=== PATIENT | female | born 1940 | race Caucasian/White ===

== ENCOUNTER 2018-12-06 12:12 | Emergency (ER) | payer MEDICARE | END 2018-12-06 15:34 | disposition home or self-care (01) | LOC: ERS 12:12 | DX: R91.8 Other nonspecific abnormal finding of lung field (principal) | CPT/HCPCS: 99284 ==

== ENCOUNTER 2018-12-11 15:27 | Inpatient (IN) | payer MEDICARE ==
--- NOTE | 2018-12-11 15:56 | RAD ---
SINGLE VIEW OF THE CHEST: COMPARISON: 12/06/2018. HISTORY: Shortness of breath and chest pain. FINDINGS: A single view of the chest shows a normal-size cardiomediastinal silhouette. Opacity is seen in the right apex, unchanged. There is a new opacity in the right lung base which likely represents a pleur al effusion and adjacent atelectasis. IMPRESSION: 1. Opacity of the right lung apex may represent an infectious or malignant process. 2. Small right pleural effusion. POS: [facility]
[2018-12-11 15:58] LABS: #Basophils 0.1 thou/uL (0.0-0.2); #Eosinphils 0.1 thou/uL (0.0-0.7); #Lymphocytes 0.9 thou/uL (1.20-3.40); #Monocytes 0.4 thou/uL (0.11-0.59); #Neutrophils 2.7 thou/uL (1.40-6.50); %Basophils 1.6 % (0.0-1.0); %Eosinophils 1.7 % (0.0-10.0); %Lymphocytes 21.9 % (21.0-51.0); %Monocytes 8.8 % (0.0-10.0); %Neutrophils 65.9 % (42.0-75.0); Mean Corpuscular HGB CONC 32.8 g/dL (32.0-36.0); Mean Corpuscular Hemoglobin 31.9 pg (27.0-31.0); Mean Corpuscular Volume 97.2 fL (78.0-98.0); Mean Platelet Volume 9.3 fL (7.4-10.4); Platelet Count 183 thou/uL (130-400); RBC Distribution Width 12.9 % (11.5-14.5)
[2018-12-11 16:39] LABS: ALT (SGPT) 7 U/L (8-55); AST (SGOT) 17 U/L (5-34); Albumin 3.2 g/dL (3.4-4.8); Alkaline Phosphatase 92 U/L (40-150); Anion Gap 15 mmol/L (10-20); BUN (Urea Nitrogen) 6 mg/dL (9.8-20.1); Bilirubin, Total 0.2 mg/dL (0.2-1.2); CK (CPK) 32 U/L (29-168); Calc. Creatinine Clearance 0 mL/min (70-130); Calcium 9.1 mg/dL (7.8-10.44); Carbon Dioxide 21 mmol/L (23-31); Chloride 111 mmol/L (98-107); Estimated GFR-MDRD 76; Globulin 2.6 g/dL (2.4-3.5); Glucose 103 mg/dL (83-110); Potassium 3.8 mmol/L (3.5-5.1); Protein, Total 5.8 g/dL (6.0-8.3); Sodium 143 mmol/L (136-145)
[2018-12-11] MEDS ORDERED: Guaifenesin DM 100-10/5 ML UDCUP PO PRN (18:38)
[2018-12-11] MEDS ORDERED: Diltiazem 125 MG in Sodium Chloride 0.9% 100 ML IVPB SCH (18:45)
[2018-12-11] MEDS ORDERED: Ondansetron ODT 4 MG TAB SL PRN (19:07)
[2018-12-11] MEDS ORDERED: HYDROcodone/Acetaminophen 5/325 mg Tablet PO PRN ×2 (19:07)
[2018-12-11] MEDS ORDERED: Sodium Chloride 0.9% 1,000 ML IV SCH (19:07)
[2018-12-11] MEDS ORDERED: Ondansetron PF 4 MG/2 ML Vial IVP PRN (19:07)
[2018-12-11] MEDS ORDERED: Acetaminophen 325 MG TAB PO PRN (19:07)
--- NOTE | 2018-12-11 19:20 | HP ---
REASON FOR ADMISSION: New onset atrial fibrillation with RVR. HISTORY OF PRESENTING ILLNESS: The patient gives history of getting short of breath and in fact says she could not get any air. Prior to this, the patient was incontinent and tried to go to restroom nearly 3 times [id number]. Finally, she went to living room, settled down, but again had another episode of incontinence where she developed shortness of breath as well. The patient says she normally drinks plenty of water as she feels thirsty all the time. She also mentions that she was told that she has a mass on her right side of her lungs and is planning to see Dr. Lazaro in the coming week. She normally ambulates by herself, does not use any assistive devices. No prior history of atrial fibrillation. When EMS arrived, the patient was in atrial fibrillation with ventricular rate of 158 beats. She is currently placed on Cardizem drip 5 mg an hour. No complaints of chest pain or shortness of breath at present. The patient does not use any home oxygen. She does not use any nebulizers at home as of now. PAST MEDICAL AND SURGICAL HISTORY: Hypothyroidism, right lung mass detected recently, osteoarthritis, depression, hysterectomy, thyroid surgery. No prior cardiac workup including stress test per patient. CURRENT MEDICATIONS: The patient is on amitriptyline 50 mg p.o. daily. The patient is on butalbital combination for headaches, likely migraines. Seroquel 50 mg p.o. q.h.s., [place] Thyroid 120 mg p.o. daily, diazepam 5 mg p.o. q.8 hourly p.r.n. ALLERGIES: NO KNOWN DRUG ALLERGIES. SOCIAL AND PERSONAL HISTORY: She lives alone and ambulates by herself. She has a friend, who helps her out if she needs any help. She quit smoking 20 years ago, prior to which smoked half a pack a day for the last 20 years. Does not abuse alcohol or drugs. Has a son who is 53 years old now. The patient lost her elder son at the age of 21 years from motor vehicle accident. Both her parents are as of now. Her whom she was for 50plus years 5 yrs back. CODE STATUS: Full. Power of assistant county attorney is her son. REVIEW OF SYSTEMS: CONSTITUTIONAL: Negative for weight loss or gain, ability to conduct usual activities. SKIN: Negative for rash, itching. EYES: Negative for double vision, pain. ENT/MOUTH: Negative for nose bleeding, neck stiffness, pain, tenderness. CARDIOVASCULAR: Negative for palpitations, dyspnea on exertion, orthopnea. RESPIRATORY: Negative for shortness of breath, wheezing, cough, hemoptysis, fever or night sweats. GASTROINTESTINAL: Negative for poor appetite, abdominal pain, heartburn, nausea , vomiting, constipation, or diarrhea. GENITOURINARY: Negative for urgency, frequency, dysuria, nocturia. MUSCULOSKELETAL: Negative for pain, swelling. NEUROLOGIC/PSYCHIATRIC: Negative for anxiety, depression. ALLERGY/IMMUNOLOGIC: Negative for skin rash, bleeding tendency. PHYSICAL EXAMINATION: GENERAL: The patient is a 78-year-old female, who is currently not in any acute distress. VITAL SIGNS: Blood pressure 102/70, pulse 108 per minute, respiratory rate 20 per minute, temperature 97.9 degrees Fahrenheit, saturating 94% on 2 L nasal cannula. NECK: Supple. No elevated JVD. HEENT: Eyes; extraocular muscles intact. Pupils reacting to light. Oral cavity; mucous membranes are moist. No exudates or congestion. CARDIOVASCULAR SYSTEM: S1 and S2 heard. Irregular rhythm. RESPIRATORY SYSTEM: Air entry 1+ bilateral. Scattered rhonchi plus bilateral. ABDOMEN: Soft. Bowel sounds heard. No tenderness, rigidity, or guarding. EXTREMITIES: No peripheral edema or calf tenderness. VASCULAR SYSTEM: Peripheral pulses 1+ bilateral. No ischemic ulcerations or gangrene. CENTRAL NERVOUS SYSTEM: No gross focal deficits noted. The patient is alert, awake, and oriented well. PSYCHIATRIC SYSTEM: The patient's mood is euthymic. No hallucinations or delusions. LABORATORY DATA: White count of 4, H and H of 14 and 42, platelet count 183, with 65% neutrophils. Serum bicarb 21, BUN 6, creatinine 0.7, serum glucose 103. Liver enzymes within normal limits. Albumin is 3.2. Chest x-ray done today shows right lung mass with small right-sided pleural effusion. She has had a recent CAT scan done on the of this month, which shows right lung mass, which appears to be expansile and there is narrowing of the pulmonary artery branches in the right lung, which is concerning for malignancy. She also has scattered pulmonary nodules in the right lung as well. EKG done by [facility] showed atrial fibrillation at 158 beats per minute. EKG done here shows sinus tach at 109 beats per minute. CLINICAL IMPRESSION AND PLAN: The patient will be admitted to telemetry for new onset atrial fibrillation with rapid ventricular response. The patient has a right lung mass with pleural effusion on the right side as well. She likely has underlying chronic obstructive pulmonary disease as well. She is currently on Cardizem drip 5 mg an hour and we will continue the same. She will be placed on Lopressor 25 mg twice daily and likely other AV jacqueline blockers from morning. We will not give her full dose of anticoagulation in view of right lung mass, which has enveloped the pulmonary artery and await Dr. Lazaro's opinion in the morning. She likely will have a thoracentesis on the right side to rule out malignancy. We will continue her amitriptyline, Seroquel, and [place] Thyroid as before. A TSH, free T3, free T4 will be obtained in the morning labs. Echo with 2D Doppler in view of atrial fibrillation. Urinalysis will be obtained. She has history of frequent urinary incontinence, will be placed on antibiotics if urinalysis reveals uti. Code status is full. I have discussed this with the patient. She will talk to her son and let us know if she changed her mind. Job ID: [id number] MTDD
[2018-12-11 20:09] LABS: CKMB 1.1 ng/mL (0-6.6)
[2018-12-11] MEDS: Metoprolol Tartrate 25 MG TAB PO SCH (21:24)
[2018-12-11] MEDS: Famotidine 20 MG TAB PO SCH (21:24)
[2018-12-11] MEDS: Acetaminophen 325 MG TAB PO PRN (21:24)
[2018-12-12 00:07] LABS: CKMB 1.1 ng/mL (0-6.6)
[2018-12-12] MEDS: Acetaminophen 325 MG TAB PO PRN ×2 (03:51→08:31)
[2018-12-12 05:54] LABS: #Eosinphils 0.1 thou/uL (0.0-0.7); #Lymphocytes 1.4 thou/uL (1.20-3.40); #Monocytes 0.5 thou/uL (0.11-0.59); #Neutrophils 2.1 thou/uL (1.40-6.50); %Basophils 0.7 % (0.0-1.0); %Eosinophils 2.9 % (0.0-10.0); %Lymphocytes 34.1 % (21.0-51.0); %Monocytes 11.9 % (0.0-10.0); %Neutrophils 50.4 % (42.0-75.0); Hemoglobin 12.2 g/dL (12.0-16.0); Mean Corpuscular HGB CONC 32.3 g/dL (32.0-36.0); Mean Corpuscular Hemoglobin 31.4 pg (27.0-31.0); Mean Corpuscular Volume 97.1 fL (78.0-98.0); Mean Platelet Volume 9.4 fL (7.4-10.4); Platelet Count 166 thou/uL (130-400); White Blood Cell (WBC) Count 4.1 thou/uL (4.8-10.8)
[2018-12-12] MEDS ORDERED: Ondansetron PF 4 MG/2 ML Vial SLOW IVP PRN (06:06)
[2018-12-12 06:11] LABS: Anion Gap 13 mmol/L (10-20); BUN (Urea Nitrogen) 6 mg/dL (9.8-20.1); Calc. Creatinine Clearance 60 mL/min (70-130); Calcium 8.8 mg/dL (7.8-10.44); Carbon Dioxide 20 mmol/L (23-31); Chloride 111 mmol/L (98-107); Estimated GFR-MDRD 84; Glucose 87 mg/dL (83-110); Potassium 3.6 mmol/L (3.5-5.1); Sodium 140 mmol/L (136-145)
[2018-12-12] MEDS ORDERED: Sodium Chloride 0.9% 1,000 ML IV SCH ×2 (06:15→07:44)
[2018-12-12] MEDS: Amitriptyline HCl 25 MG TAB PO SCH (08:29)
[2018-12-12] MEDS: Metoprolol Tartrate 25 MG TAB PO SCH (08:29)
[2018-12-12] MEDS: Famotidine 20 MG TAB PO SCH ×2 (08:29→21:38)
[2018-12-12] MEDS: Thyroid 60 MG TAB PO SCH (08:30)
[2018-12-12] MEDS ORDERED: Enoxaparin Sodium 40 MG/0.4 ML SYRINGE SC SCH (09:00)
--- NOTE | 2018-12-12 10:41 | PDOC.PN ---
- Subjective Encounter Start Date: 12/12/18 Encounter Start Time: 10:20 Subjective: mild sob, no c/o palp or chest pain -: couldn't sleep last night, was woken multiple times due to bp cuff inflatin - Objective Resuscitation Status - Order Detail: 12/11/18 18:34 Resuscitation Status Routine Resuscitation Status: FULL: Full Resuscitation Discussed with: POA: son ERNIE Reviewed: Yes Vital Signs & Weight: Vital Signs (12 hours) Temp Pulse Resp BP BP Pulse Ox 12/12/18 09:47 85 16 94 L 12/12/18 07:25 98.1 F 96 18 124/56 L 92 L 12/12/18 06:48 83 16 92 L 12/12/18 04:20 98.3 F 88 20 94/58 L 92 L 12/11/18 23:45 84 96/55 L 12/11/18 22:42 89 16 93 L Weight Weight 131 lb 8 oz I&O: 12/11/18 12/12/18 12/13/18 06:59 06:59 06:59 Intake Total 1560 Output Total 700 Balance 860 Result Diagrams: 12/12/18 04:48 12/12/18 04:48 Phys Exam - Physical Examination HEENT: PERRLA, moist MMs Neck: no JVD, supple Respiratory: no wheezing, no rales rhonchi+ Cardiovascular: no significant murmur, irregular Gastrointestinal: soft, no distention, positive bowel sounds Musculoskeletal: no edema, pulses present Neurological: non-focal, moves all 4 limbs Psychiatric: A&O x 3 Dx/Plan (1) Afib Code(s): I48.91 - UNSPECIFIED ATRIAL FIBRILLATION Status: Acute (2) Mass of right lung Code(s): R91.8 - OTHER NONSPECIFIC ABNORMAL FINDING OF LUNG FIELD Status: Acute (3) HTN (hypertension) Code(s): I10 - ESSENTIAL (PRIMARY) HYPERTENSION Status: Chronic Qualifiers: Hypertension type: essential hypertension Qualified Code(s): I10 - Essential (primary) hypertension (4) COPD (chronic obstructive pulmonary disease) Status: Suspected Qualifiers: COPD type: chronic bronchitis (5) Hypothyroidism Code(s): E03.9 - HYPOTHYROIDISM, UNSPECIFIED Status: Chronic Qualifiers: Hypothyroidism type: acquired Qualified Code(s): E03.9 - Hypothyroidism, unspecified - Plan dc cardizem drip, she is getting tired of bp cuff inflating multiple times -: oral cardizem cd 120mg bid, lopressor small dose -: echo pending -: will decide thoracentesis Vs bronch -: nebs prn. Continue seroquel, elavil and armour thyroid as before * . Will d/w son later today, await plans by specialist before I update him. She lives alone and amb by herself, likely has mild cognitive impairment. Review of Systems - Medications/Allergies Allergies/Adverse Reactions: Allergies Allergy/AdvReac Type Severity Reaction Status Date / Time No Known Drug Allergies Allergy Verified 12/11/18 20:18 Medications: Current Medications Acetaminophen (Tylenol) 650 mg PO Q4H PRN PRN Reason: Headache/Fever or Pain Last Admin: 12/12/18 08:31 Dose: 650 mg Hydrocodone Bitart/Acetaminophen ([place] 5/325) 1 tab PO Q6H PRN PRN Reason: Pain 4-6 Albuterol/Ipratropium (Duoneb) 3 ml NEB [id number] [facility] Last Admin: 12/12/18 06:48 Dose: 3 ml Albuterol/Ipratropium (Duoneb) 3 ml NEB NOW [facility] Stop: 12/12/18 11:00 Last Admin: 12/12/18 09:47 Dose: 3 ml Amitriptyline HCl (Elavil) 50 mg PO DAILY [facility] Last Admin: 12/12/18 08:29 Dose: 50 mg Diltiazem HCl (Cardizem Cd) 120 mg PO NOW [facility] Stop: 12/12/18 12:00 Last Admin: 12/12/18 10:21 Dose: 120 mg Diltiazem HCl (Cardizem Cd) 120 mg PO BID [facility] Enoxaparin Sodium (Lovenox) 40 mg SC 0900 [facility] Last Admin: 12/12/18 08:28 Dose: 40 mg Famotidine (Pepcid) 20 mg PO BID [facility] Last Admin: 12/12/18 08:29 Dose: 20 mg Guaifenesin/Dextromethorphan (Robitussin Dm) 15 ml PO Q4H PRN PRN Reason: Cough Metoprolol Tartrate (Lopressor) 25 mg PO BID [facility] Last Admin: 12/12/18 08:29 Dose: 25 mg Ondansetron HCl (Zofran) 4 mg SLOW IVP Q6H PRN PRN Reason: Nausea/Vomiting Quetiapine Fumarate (Seroquel) 50 mg PO HS [facility] Last Admin: 12/11/18 21:24 Dose: 50 mg Senna/Docusate Sodium (Senokot S) 2 tab PO BID PRN PRN Reason: Constipation Sodium Chloride (Flush - Normal Saline) 10 ml IVF Q12HR [facility] Last Admin: 12/12/18 08:30 Dose: Not Given Sodium Chloride (Flush - Normal Saline) 10 ml IVF PRN PRN PRN Reason: Saline Flush Thyroid ([place] Thyroid) 120 mg PO DAILY [facility] Last Admin: 12/12/18 08:30 Dose: 120 mg
[2018-12-12] MEDS ORDERED: Digoxin 0.5 MG/2 ML AMP SLOW IVP SCH (13:30)
--- NOTE | 2018-12-12 16:17 | CON ---
DATE OF CONSULTATION: REASON FOR CONSULTATION: Atrial fibrillation. HISTORY OF PRESENT ILLNESS: Ms. Powers is a 78-year-old woman, who re-presented with shortness of breath. No chest pain or pressure noted. Shortness of breath has been noted in the last several days. She was seen by the emergency room and was found to have atrial fibrillation with rapid ventricular response. Heart rate was in the 150s. She was placed on IV Cardizem with rate control. She appears to not have paroxysmal atrial fibrillation. She has no previous history of underlying atrial fibrillation, CAD, or associated symptoms. She has not been seen and evaluated by Cardiology in the past. She also has a lung mass that is currently being worked up. She does have a previous history of tobacco abuse, although quit in 1996. PAST MEDICAL HISTORY: As above including hysterectomy, thyroid surgery, and osteoarthritis. HOME MEDICATIONS: Include; 1. Amitriptyline for headaches. 2. Seroquel. 3. Diazepam. 4. [place] Thyroid. ALLERGIES: NONE. SOCIAL HISTORY: Her son is currently present. She has a supportive family. No current tobacco or alcohol use. REVIEW OF SYSTEMS: A 10-point review of systems is reviewed and as above, otherwise negative. PHYSICAL EXAMINATION: VITAL SIGNS: Blood pressure 119/69, pulse 97, and temperature 98.5. GENERAL: She does have some confusion. The patient appears their stated age. NEUROLOGIC: The patient is alert and oriented x3 with no focal neurologic deficits. HEENT: Sclerae without icterus. Mouth has moist mucous membranes with normal pallor. NECK: No JVD. Carotid upstroke brisk. No bruits bilaterally. LUNGS: Clear to auscultation with unlabored respirations. BACK: No scoliosis or kyphosis. CARDIAC: Regular rate and rhythm with normal S1 and S2. No S3 or S4 noted. No significant rubs, murmurs, thrills, or gallops noted throughout the precordium. PMI is not displaced. There is no parasternal heave. ABDOMEN: Soft, nontender, nondistended. No peritoneal signs present. No hepatosplenomegaly. No abnormal striae. EXTREMITIES: 2+ femoral and 2+ dorsalis pedis pulses. No cyanosis, clubbing, or edema. SKIN: No gross abnormalities. LABORATORY DATA: Hemoglobin 12.2 and white blood cell count 4.1. Creatinine 0.68. IMPRESSION: 1. Paroxysmal atrial fibrillation. 2. Right lung mass. 3. Confusion. RECOMMENDATIONS: Ms. Powers does not have any focal neurologic deficit. Her son is concerned about her potential recent stroke due to underlying confusion. The patient has not had a CT scan of the head. We will order a CT scan. May consider an MRI. At this point, I would also recommend rate control and anticoagulation therapy. We will cover with Lovenox for now. I am unsure of the plan of assessment of the right lung mass. I will add Multaq. At this point, she is not requiring IV Cardizem. She is currently on Cardizem CD 120 mg IV b.i.d. and appears to be rate controlled. Job ID: [id number]
--- NOTE | 2018-12-12 17:11 | CT ---
CT BRAIN: Date: 12/12/18 HISTORY: Altered mental status COMPARISON: Previous exam from 06/29/16. FINDINGS: CT images of the brain demonstrate the brain to be unremarkable. No evidence of intracranial masses, hemorrhages, strokes, or contusions seen. The ventricles are of normal size. There is moderate right to left nasal septal deviation. IMPRESSION: Cortical atrophy. POS: [facility]
[2018-12-12] MEDS ORDERED: Digoxin 0.25 MG TAB PO SCH (19:00)
--- NOTE | 2018-12-12 20:42 | CON ---
DATE OF CONSULTATION: 12/12/2018 HISTORY OF PRESENT ILLNESS: Ms. Powers is a 78-year-old female. I was consulted for an abnormal chest x-ray and chest CT. Apparently, she was sent over here from [place] on December 06. I was contacted by the emergency physician and provided with the information that she was transferred over here for a new lung mass. I have explained to the emergency physician that this was by Medicare standards considered an outpatient workup and asked them to make an appointment in my office. Ms. Powers says she has an appointment, but she does not know what day it is. She told me that I would talk to her son. I have not. Anyway, she presented back with shortness of breath. She was found to have rapid atrial fibrillation, subsequently has been admitted. I was consulted. PAST MEDICAL HISTORY: Remarkable for: 1. Hypothyroidism. 2. Degenerative arthritis. 3. Depression. 4. Status post hysterectomy. 5. History of thyroid surgery. MEDICATIONS: Prior to admission, she is on: 1. Elavil. 2. Seroquel. 3. [place] Thyroid. 4. Valium. 5. Butalbital. SOCIAL HISTORY: She lives alone, apparently a son had and has a son that lives out of town. She smoked when she was in high school in early 20s, but quit smoking. ALLERGIES: SHE HAS NO REPORTED DRUG ALLERGIES. FAMILY HISTORY: Negative for lung disease in early age, but she does give a history of having a grandfather. He told that he had emphysema in his 30s. It is unclear whether or not this is just simply chronic asthma since there are no medications when her grandfather was in his 30s for COPD or asthma. REVIEW OF SYSTEMS: 10 point review of systems completed. Remarkable for significant weight loss over the last year. Otherwise, negative. PHYSICAL EXAMINATION: GENERAL: She is in no distress. She seen a little confused. She asked me for a piece of paper to write down whether or not I was coming back tomorrow to see her and then wrote down coming to see me in the morning. VITAL SIGNS: She is afebrile. Heart rate was in the one teens. When I saw her , respiratory rate was in the teens, oximetry was 92 to 93 on room air. HEENT: Pupils were reactive. Sclerae anicteric. NECK: Supple. LUNGS: Remarkable for dullness to percussion in the right lung base. Left lung is clear. HEART: Irregular rhythm. S1 and S2 are normal. ABDOMEN: Soft and nontender. EXTREMITIES: Without clubbing, cyanosis, or edema. DIAGNOSTIC DATA: CT of her head was done this afternoon showing cortical atrophy. LABORATORY DATA: White count 4.1, hemoglobin 12.2, platelets 166. Electrolytes were unremarkable, exception of mild hypochloremia. Chest x-ray and chest CT showed right upper lobe atelectasis and right pleural effusion. IMPRESSION: 1. 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 2. Pleural effusion. This could be related to atrial fibrillation or could be related to malignancy. The least invasive thing we can do to start this workup would be to do a thoracentesis. PLAN: Plan on doing that first thing in the morning at the bedside. Risk of bleeding, infection, and lung collapse were explained to the patient. The hospitalist is trying to get in touch with the son, but he has not answered his phone. I will try as well. Prior to doing the procedure, we would like to explain everything to him. TIME SPENT: This is a 50-minute consult, with greater than 50% of time spent on the unit coordinating care. Job ID: [id number] [facility]
[2018-12-12] MEDS: Metoprolol Tartrate 50 MG TAB PO SCH (21:38)
[2018-12-13] MEDS ORDERED: Lorazepam 1 MG TAB PO SCH (00:45)
[2018-12-13] MEDS: Metoprolol Tartrate 50 MG TAB PO SCH ×2 (08:51→20:49)
[2018-12-13] MEDS: Digoxin 0.125 MG TAB PO SCH (08:51)
[2018-12-13] MEDS: Amitriptyline HCl 25 MG TAB PO SCH (08:51)
[2018-12-13] MEDS: Famotidine 20 MG TAB PO SCH ×2 (08:51→20:49)
[2018-12-13] MEDS: Thyroid 60 MG TAB PO SCH (08:52)
[2018-12-13] MEDS ORDERED: Enoxaparin Sodium 40 MG/0.4 ML SYRINGE SC SCH (09:00)
[2018-12-13 09:51] LABS: INR-International Normal Ratio 1.1; PTT 32.1 SEC (22.9-36.1)
[2018-12-13 09:58] LABS: Anion Gap 15 mmol/L (10-20); BUN (Urea Nitrogen) 5 mg/dL (9.8-20.1); Calc. Creatinine Clearance 69 mL/min (70-130); Calcium 9.9 mg/dL (7.8-10.44); Carbon Dioxide 23 mmol/L (23-31); Chloride 105 mmol/L (98-107); Estimated GFR-MDRD 90; Glucose 102 mg/dL (83-110); Potassium 3.8 mmol/L (3.5-5.1); Sodium 139 mmol/L (136-145)
[2018-12-13 11:53] LABS: Bilirubin Negative (Negative); Blood, Urine Negative (Negative); Clarity CLEAR (Clear); Glucose, Urine (Dipstick) Negative (Negative); Leukocyte Negative (Negative); Nitrite Negative (Negative); Protein, Urine (Dipstick) Negative (Neg-Trace); Specific Gravity, Urine 1.014 (1.002-1.036); Urobilinogen 0.2 mg/dL (0.2-1.0); pH, Urine 5.5 (5.0-9.0)
--- NOTE | 2018-12-13 12:32 | PDOC.PN ---
- Subjective Encounter Start Date: 12/13/18 Encounter Start Time: 07:00 Subjective: is in restraints, not oriented, barely opens eyes - Objective Resuscitation Status - Order Detail: 12/11/18 18:34 Resuscitation Status Routine Resuscitation Status: FULL: Full Resuscitation Discussed with: POA: nallely KLEIN Reviewed: Yes Vital Signs & Weight: Vital Signs (12 hours) Temp Pulse Resp BP Pulse Ox 12/13/18 11:10 97.4 F L 117 H 18 131/92 H 92 L 12/13/18 07:01 92 L 12/13/18 07:00 98.7 F 113 H 18 150/65 H 96 12/13/18 06:58 82 20 92 L 12/13/18 04:00 96.8 F L 112 H 20 130/74 100 Weight Weight 131 lb 8 oz I&O: 12/12/18 12/13/18 12/14/18 06:59 06:59 06:59 Intake Total 1560 720 Output Total 700 350 Balance 860 370 Result Diagrams: 12/12/18 04:48 12/13/18 09:09 Phys Exam - Physical Examination HEENT: PERRLA, sclera anicteric Neck: no JVD, supple Respiratory: no wheezing rhonchi++ Cardiovascular: no significant murmur, irregular Gastrointestinal: soft, non-tender, positive bowel sounds Musculoskeletal: no edema, pulses present Neurological: non-focal, moves all 4 limbs Dx/Plan (1) Afib Code(s): I48.91 - UNSPECIFIED ATRIAL FIBRILLATION Status: Acute (2) Mass of right lung Code(s): R91.8 - OTHER NONSPECIFIC ABNORMAL FINDING OF LUNG FIELD Status: Acute (3) HTN (hypertension) Code(s): I10 - ESSENTIAL (PRIMARY) HYPERTENSION Status: Chronic Qualifiers: Hypertension type: essential hypertension Qualified Code(s): I10 - Essential (primary) hypertension (4) COPD (chronic obstructive pulmonary disease) Status: Suspected Qualifiers: COPD type: chronic bronchitis (5) Hypothyroidism Code(s): E03.9 - HYPOTHYROIDISM, UNSPECIFIED Status: Chronic Qualifiers: Hypothyroidism type: acquired Qualified Code(s): E03.9 - Hypothyroidism, unspecified (6) Delirium Code(s): R41.0 - DISORIENTATION, UNSPECIFIED Status: Acute - Plan likely has underlying dementia with delirium now -: watch for aspiration, continue nebs -: is on digoxin, lopressor, cardizem cd -: no anticoagulation for now in view of lung mass encapsulating pulm art br -: might need bronch if thoracentesis does not give a good sample * . d/w son over phone current plan, is aware what's seen in right lung may not be benign by how it looks on imaging. If this turns out to be malignant, not sure if she is a candidate for chemo/ radiation Rx. Review of Systems - Medications/Allergies Allergies/Adverse Reactions: Allergies Allergy/AdvReac Type Severity Reaction Status Date / Time No Known Drug Allergies Allergy Verified 12/11/18 20:18 Medications: Current Medications Acetaminophen (Tylenol) 650 mg PO Q4H PRN PRN Reason: Headache/Fever or Pain Last Admin: 12/12/18 08:31 Dose: 650 mg Hydrocodone Bitart/Acetaminophen ([place] 5/325) 1 tab PO Q6H PRN PRN Reason: Pain 4-6 Albuterol/Ipratropium (Duoneb) 3 ml NEB [id number] [facility] Last Admin: 12/13/18 06:58 Dose: 3 ml Amitriptyline HCl (Elavil) 50 mg PO DAILY [facility] Last Admin: 12/13/18 08:51 Dose: 50 mg Digoxin (Lanoxin) 0.125 mg PO DAILY [facility] Last Admin: 12/13/18 08:51 Dose: 0.125 mg Diltiazem HCl (Cardizem Cd) 120 mg PO BID [facility] Last Admin: 12/13/18 08:52 Dose: 120 mg Famotidine (Pepcid) 20 mg PO BID [facility] Last Admin: 12/13/18 08:51 Dose: 20 mg Guaifenesin/Dextromethorphan (Robitussin Dm) 15 ml PO Q4H PRN PRN Reason: Cough Metoprolol Tartrate (Lopressor) 50 mg PO BID [facility] Last Admin: 12/13/18 08:51 Dose: 50 mg Ondansetron HCl (Zofran) 4 mg SLOW IVP Q6H PRN PRN Reason: Nausea/Vomiting Quetiapine Fumarate (Seroquel) 50 mg PO HS [facility] Last Admin: 12/12/18 21:38 Dose: 50 mg Senna/Docusate Sodium (Senokot S) 2 tab PO BID PRN PRN Reason: Constipation Sodium Chloride (Flush - Normal Saline) 10 ml IVF Q12HR [facility] Last Admin: 12/13/18 08:52 Dose: 10 ml Sodium Chloride (Flush - Normal Saline) 10 ml IVF PRN PRN PRN Reason: Saline Flush Thyroid ([place] Thyroid) 120 mg PO DAILY [facility] Last Admin: 12/13/18 08:52 Dose: 120 mg
--- NOTE | 2018-12-13 16:10 | PRG ---
DATE OF SERVICE: 12/13/2018 SUBJECTIVE: Ms. Powers was tentatively on schedule to have thoracentesis. She apparently was extremely combative last night, had to be restrained, was given Ativan, and was somnolent this morning. I came by to do thoracentesis about 2: 30 this afternoon. The son had just left. I want to talk to him. I asked the nurse to contact him on his cellphone, but he did not answer. I canceled the procedure because of the issues with her encephalopathy. Son apparently came back after I left and I received a text from the charge nurse stating that he was angry and that I was supposed to call him sometime last week. I have had no relationship with the patient or the son before yesterday. OBJECTIVE: VITAL SIGNS: Stable, but still having elevated heart rate as high as 117 recorded this morning. She is afebrile, respiratory rates in the teens, she is 92% on 2 L, blood pressure 131/92. LUNGS: There is no change. ABDOMEN: There is no change. IMPRESSION: 1. Right upper lobe collapse, likely secondary to an endobronchial malignancy. 2. 60 pounds weight loss by her report prior to this admission. 3. Anemia of chronic disease. 4. Malnutrition. 5. , likely decompensated dementia. 6. Very few therapeutic options at this point in time. 7. Certainly, given her encephalopathy and dementia, she would be a candidate for surgery or chemotherapy. 8. Until we get control of her encephalopathy, I do not think we can proceed forward safely with any type of workup. 9. Right upper lobe mass with weight loss, most likely malignant and extremely unlikely this is tuberculosis or an infectious process. 10. Right pleural effusion either secondary to this or atrial fibrillation. 11. Atrial fibrillation with rapid ventricular response. 12. Abdominal mass between the adrenal gland and the kidney, be worried about metastatic lesion. PLAN: We will continue supportive care. I really cannot even explain the situation when the son fails to stay this afternoon. When he was asked to come back, he came back and was told that procedure was canceled, then he became mad. Said he is going to find a head nurse and left. I went back over to talk to him, but he was gone. There was no way ethically or legally I can talk to him about his mom before I meet her, and there is no record of any message to be left in my office, so I cannot really fix this problem. Job ID: [id number] MTDDilan
--- NOTE | 2018-12-13 16:22 | PDOC.CTH ---
Cardiology Progress Note - Subjective Patient sleeping. Breathing comfortably but not really arousable. Reviewed chart and tele. - Objective Vital Signs Temp Pulse Resp BP Pulse Ox 12/13/18 15:00 98.3 F 114 H 17 132/71 92 L 12/13/18 13:01 102 H 20 93 L 12/13/18 11:10 97.4 F L 117 H 18 131/92 H 92 L 12/13/18 07:01 92 L 12/13/18 07:00 98.7 F 113 H 18 150/65 H 96 12/13/18 06:58 82 20 92 L Weight 131 lb 8 oz 12/12/18 12/13/18 12/14/18 06:59 06:59 06:59 Intake Total 1560 720 Output Total 700 350 Balance 860 370 - Physical Examination General/Neuro: other: (see above) Lungs: other: (Decreased Right BS) Extremities: other: (no edema) - Telemetry Telemetry Rhythm: SR/AF - Labs Result Diagrams: 12/12/18 04:48 12/13/18 09:09 Troponin/CKMB CK-MB (CK-2) 1.1 ng/mL (0-6.6) 12/11/18 23:11 Troponin I 0.067 ng/mL (< 0.028) H 12/11/18 23:11 - Assessment/Plan 1. Paroxysmal AF 2. Right lung mass with effusion 3. Encephalopathy According to MAR patient did have morning meds. May need to change to IV. Plan for bronch tomorrow per nurse. Await results. Will discuss adding Lovenox with Dr. Tapia.
--- NOTE | 2018-12-13 17:26 | PRG ---
DATE OF SERVICE: 12/13/2018 SUBJECTIVE: Danna Powers's son came back. I met with him. I explained everything. I think given her encephalopathy, the best most expeditious way to obtain a diagnosis is with bronchoscopy. There is a reasonable chance that this pleural effusion is related to atrial fibrillation. Her atrial fibrillation rate better controlled. We will plan to do this with Anesthesia's help. Risk of bleeding, infection, lung collapse, least likely , and prolonged intubation were explained to the patient's son. All of his questions were answered to his satisfaction. Job ID: [id number]
[2018-12-14] MEDS: Acetaminophen 325 MG TAB PO PRN ×2 (05:21→19:54)
[2018-12-14] MEDS ORDERED: Fentanyl 100 MCG/2 ML VIAL ONE (09:40)
[2018-12-14] MEDS ORDERED: Famotidine/PF 20 mg/2ml Vial ONE (09:40)
[2018-12-14] MEDS: Digoxin 0.125 MG TAB PO SCH ×2 (09:53→12:49)
[2018-12-14] MEDS: Amitriptyline HCl 25 MG TAB PO SCH (09:53)
[2018-12-14] MEDS: Thyroid 60 MG TAB PO SCH (09:54)
[2018-12-14] MEDS: Metoprolol Tartrate 50 MG TAB PO SCH ×3 (09:54→19:56)
[2018-12-14] MEDS: Famotidine 20 MG TAB PO SCH ×2 (09:54→19:55)
[2018-12-14] MEDS ORDERED: Ondansetron HCl/PF 4 MG/2 ML Vial IVP PRN (10:40)
[2018-12-14] MEDS ORDERED: Ondansetron PF 4 MG/2 ML Vial ONE (13:26)
[2018-12-14] MEDS ORDERED: PROPOFOL 200 MG/20 ML VIAL ONE (13:26)
[2018-12-14] MEDS ORDERED: Lidocaine 1% PF 5 ML VIAL ONE (13:26)
[2018-12-14] MEDS ORDERED: PHENYLEPHRINE-NS 100 MCG/ML 10 ML SYRINGE ONE (13:26)
--- NOTE | 2018-12-14 13:49 | PDOC.PN ---
- Subjective Encounter Start Date: 12/14/18 Encounter Start Time: 13:40 Subjective: she is awake and oriented well -: conversing like her normal self like on wednesday - Objective Resuscitation Status - Order Detail: 12/11/18 18:34 Resuscitation Status Routine Resuscitation Status: FULL: Full Resuscitation Discussed with: POA: nallely KLEIN Reviewed: Yes Vital Signs & Weight: Vital Signs (12 hours) Temp Pulse Resp BP Pulse Ox 12/14/18 12:49 140 H 12/14/18 11:20 98.4 F 140 H 16 118/63 96 12/14/18 07:25 98.5 F 110 H 16 115/58 L 92 L 12/14/18 06:52 95 12/14/18 06:51 102 H 20 96 12/14/18 04:00 99 F 92 20 112/54 L 92 L Weight Weight 124 lb 11.2 oz I&O: 12/13/18 12/14/18 12/15/18 06:59 06:59 06:59 Intake Total 720 780 Output Total 350 800 Balance 370 -20 Result Diagrams: 12/12/18 04:48 12/13/18 09:09 Phys Exam - Physical Examination HEENT: PERRLA, moist MMs Neck: no JVD, supple Respiratory: no wheezing, no rales Cardiovascular: RRR, no significant murmur Gastrointestinal: soft, no distention, positive bowel sounds Musculoskeletal: no edema, pulses present Neurological: non-focal, moves all 4 limbs Psychiatric: normal affect, A&O x 3 Dx/Plan (1) Afib Code(s): I48.91 - UNSPECIFIED ATRIAL FIBRILLATION Status: Acute Qualifiers: Atrial fibrillation type: paroxysmal Qualified Code(s): I48.0 - Paroxysmal atrial fibrillation (2) Mass of right lung Code(s): R91.8 - OTHER NONSPECIFIC ABNORMAL FINDING OF LUNG FIELD Status: Acute (3) HTN (hypertension) Code(s): I10 - ESSENTIAL (PRIMARY) HYPERTENSION Status: Chronic Qualifiers: Hypertension type: essential hypertension Qualified Code(s): I10 - Essential (primary) hypertension (4) COPD (chronic obstructive pulmonary disease) Status: Suspected Qualifiers: COPD type: chronic bronchitis (5) Hypothyroidism Code(s): E03.9 - HYPOTHYROIDISM, UNSPECIFIED Status: Chronic Qualifiers: Hypothyroidism type: acquired Qualified Code(s): E03.9 - Hypothyroidism, unspecified (6) Delirium Code(s): R41.0 - DISORIENTATION, UNSPECIFIED Status: Acute - Plan had bronch with biopsy this am -: she is fully oriented now -: is on dig, cardizem cd and lopressor -: no anticoag for now -: hemostable, is back in sinus rhythm now. * . I have shown the CT scan images to son and have discussed the current plan in detail. Review of Systems - Medications/Allergies Allergies/Adverse Reactions: Allergies Allergy/AdvReac Type Severity Reaction Status Date / Time No Known Drug Allergies Allergy Verified 12/11/18 20:18 Medications: Current Medications Acetaminophen (Tylenol) 650 mg PO Q4H PRN PRN Reason: Headache/Fever or Pain Last Admin: 12/12/18 08:31 Dose: 650 mg Hydrocodone Bitart/Acetaminophen ([place] 5/325) 1 tab PO Q6H PRN PRN Reason: Pain 4-6 Albuterol/Ipratropium (Duoneb) 3 ml NEB [id number] [facility] [place] Last Admin: 12/14/18 12:52 Dose: Not Given Amitriptyline HCl (Elavil) 50 mg PO DAILY [facility] [place] Last Admin: 12/14/18 09:53 Dose: Not Given Digoxin (Lanoxin) 0.125 mg PO DAILY [facility] [place] Last Admin: 12/14/18 12:49 Dose: 0.125 mg Diltiazem HCl (Cardizem Cd) 120 mg PO BID [facility] [place] Last Admin: 12/14/18 12:49 Dose: 120 mg Famotidine (Pepcid) 20 mg PO BID [facility] [place] Last Admin: 12/14/18 09:54 Dose: Not Given Guaifenesin/Dextromethorphan (Robitussin Dm) 15 ml PO Q4H PRN PRN Reason: Cough Metoprolol Tartrate (Lopressor) 50 mg PO BID [facility] [place] Last Admin: 12/14/18 13:26 Dose: Not Given Ondansetron HCl (Zofran) 4 mg SLOW IVP Q6H PRN PRN Reason: Nausea/Vomiting Quetiapine Fumarate (Seroquel) 50 mg PO HS [facility] [place] Last Admin: 12/13/18 20:49 Dose: 50 mg Senna/Docusate Sodium (Senokot S) 2 tab PO BID PRN PRN Reason: Constipation Sodium Chloride (Flush - Normal Saline) 10 ml IVF Q12HR [facility] Last Admin: 12/14/18 09:54 Dose: Not Given Sodium Chloride (Flush - Normal Saline) 10 ml IVF PRN PRN PRN Reason: Saline Flush Thyroid ([place] Thyroid) 120 mg PO DAILY [facility] Last Admin: 12/14/18 09:54 Dose: Not Given
--- NOTE | 2018-12-15 08:46 | PDOC.CTH ---
Cardiology Progress Note - Subjective No new complaints. Currently in SR/ST. Still breathrough MAT/AFlutter. - Objective Vital Signs Temp Pulse Resp BP Pulse Ox 12/15/18 06:53 98 12/15/18 06:51 102 H 20 96 12/15/18 04:00 97.3 F L 86 16 119/56 L 92 L 12/15/18 01:43 84 18 87 L 12/14/18 23:26 92/52 L Weight 127 lb 12/14/18 12/15/18 12/16/18 06:59 06:59 06:59 Intake Total 780 480 350 Output Total 800 375 Balance -20 480 -25 - Physical Examination General/Neuro: alert & oriented x3 Neck: no JVD present Lungs: other: (decreased right BS; left coarse BS) Heart: RRR Abdomen: NT/ND Extremities: other: (no edema) - Telemetry Telemetry Rhythm: SR/ST/AF/AFl - Labs Result Diagrams: 12/12/18 04:48 12/13/18 09:09 Troponin/CKMB CK-MB (CK-2) 1.1 ng/mL (0-6.6) 12/11/18 23:11 Troponin I 0.067 ng/mL (< 0.028) H 12/11/18 23:11 - Assessment/Plan 1. Right lung mass 2. AFib/AFl 3. MAT 4. Cachexia Add lovenox when cleared from pulmonary post-bronch. Need to discuss intermediate card tender OAC with son. ECHO pending.
--- NOTE | 2018-12-15 09:22 | PRG ---
DATE OF SERVICE: 12/14/2018 TIME: 1430 hours. SUBJECTIVE: Ms. Powers is doing well. She underwent bronchoscopy today. She complains of sore throat postoperatively. Her telemetry shows she has been in and out of atrial flutter, MAT, and sinus tachycardia. Currently, she is in flutter rate of 140. She is asymptomatic. She has not had her medications today and the nurse is actively giving her in the room. She denies any chest pain, shortness of breath, or other complaints. OBJECTIVE: VITAL SIGNS: Blood pressure is 110/60, heart rate 130 to 140 beats per minutes, O2 sats are stable, respiratory rate of 14. NEUROLOGIC: She is alert, awake, and oriented x3. CHEST: Decreased right breath sounds with some left coarse breath sounds. CARDIOVASCULAR: Irregular and rapid. ABDOMEN: Soft, nontender to palpation, nondistended. EXTREMITIES: No clubbing, cyanosis, or edema. IMPRESSION: 1. Right lung mass. 2. Paroxysmal atrial fibrillation/atrial flutter. 3. Multifocal atrial tachycardia. 4. Cachexia. At this time, we will continue the patient's current medications. We are awaiting bronchoscopy results. The son is not available currently, but we need to discuss anticoagulation in the near future. This could be pending long-term recommendations by Pulmonology after final path results. Job ID: [id number]
[2018-12-15] MEDS: Thyroid 60 MG TAB PO SCH (09:51)
[2018-12-15] MEDS: Digoxin 0.125 MG TAB PO SCH (09:51)
[2018-12-15] MEDS: Amitriptyline HCl 25 MG TAB PO SCH (09:52)
[2018-12-15] MEDS: Metoprolol Tartrate 50 MG TAB PO SCH ×2 (09:52→21:04)
[2018-12-15] MEDS: Famotidine 20 MG TAB PO SCH ×2 (09:52→21:04)
--- NOTE | 2018-12-15 10:59 | PRG ---
DATE OF SERVICE: 12/15/2018 SUBJECTIVE: Priya has no complaints. She wants to go home. OBJECTIVE: VITAL SIGNS: Heart rate is 102, respiratory rate is 20, and oximetry is 98% on 3 L. GENERAL: She is still confused. She thought she got up, took a bath this morning and that was yesterday afternoon, going to take another bath. LUNGS: Unchanged and clear. HEART: Unchanged. ABDOMEN: Unchanged. LABORATORY DATA: No new labs. IMPRESSION: Status post biopsy, brushing, washing of an obstructing right upper lobe mass, which likely is malignant. I am not sure she would hold still for an MRI of her brain to rule out multiple small intracranial mass. She had a head CT that did not show anything, but this was a noncontrast CT that only showed cortical atrophy. I am not sure there will be any therapeutic options for her, but we should have a tissue diagnosis hopefully by tomorrow. Job ID: [id number]
--- NOTE | 2018-12-15 11:07 | PDOC.PN ---
- Subjective Encounter Start Date: 12/15/18 Encounter Start Time: 09:00 Subjective: no sob, awake, didn't eat much of her breakfast -: responds well to verbal stimuli -: no chest pain or palp - Objective Resuscitation Status - Order Detail: 12/11/18 18:34 Resuscitation Status Routine Resuscitation Status: FULL: Full Resuscitation Discussed with: POA: nallely KLEIN Reviewed: Yes Vital Signs & Weight: Vital Signs (12 hours) Temp Pulse Resp BP Pulse Ox 12/15/18 09:52 102 H 12/15/18 09:51 102 H 12/15/18 08:00 99.3 F 104 H 18 130/59 L 95 12/15/18 06:53 98 12/15/18 06:51 102 H 20 96 12/15/18 04:00 97.3 F L 86 16 119/56 L 92 L 12/15/18 01:43 84 18 87 L 12/14/18 23:26 92/52 L Weight Weight 127 lb I&O: 12/14/18 12/15/18 12/16/18 06:59 06:59 06:59 Intake Total 780 480 350 Output Total 800 375 Balance -20 480 -25 Result Diagrams: 12/12/18 04:48 12/13/18 09:09 Phys Exam - Physical Examination HEENT: PERRLA, moist MMs Neck: no JVD, supple Respiratory: no wheezing, no rales rhonchi+ Cardiovascular: RRR, no significant murmur Gastrointestinal: soft, non-tender, positive bowel sounds Musculoskeletal: no edema, pulses present Neurological: non-focal, moves all 4 limbs Dx/Plan (1) Afib Code(s): I48.91 - UNSPECIFIED ATRIAL FIBRILLATION Status: Acute Qualifiers: Atrial fibrillation type: paroxysmal Qualified Code(s): I48.0 - Paroxysmal atrial fibrillation (2) Mass of right lung Code(s): R91.8 - OTHER NONSPECIFIC ABNORMAL FINDING OF LUNG FIELD Status: Acute (3) HTN (hypertension) Code(s): I10 - ESSENTIAL (PRIMARY) HYPERTENSION Status: Chronic Qualifiers: Hypertension type: essential hypertension Qualified Code(s): I10 - Essential (primary) hypertension (4) COPD (chronic obstructive pulmonary disease) Status: Suspected Qualifiers: COPD type: chronic bronchitis (5) Hypothyroidism Code(s): E03.9 - HYPOTHYROIDISM, UNSPECIFIED Status: Chronic Qualifiers: Hypothyroidism type: acquired Qualified Code(s): E03.9 - Hypothyroidism, unspecified (6) Delirium Code(s): R41.0 - DISORIENTATION, UNSPECIFIED Status: Resolved Comment: at baseline cognitive status - Plan bronch histopath -ve for malignancy -: afib is mostly paroxysmal, for the most part in sinus -: echo pending, may dc digoxin if ef is normal -: continue cardizem cd 120mg bid, lopressor 50mg bid, asp -: anticoagulation when lung w/u is complete * . has ambulated well with PT will need HH, and family to closely watch her on discharge. Review of Systems - Medications/Allergies Allergies/Adverse Reactions: Allergies Allergy/AdvReac Type Severity Reaction Status Date / Time No Known Drug Allergies Allergy Verified 12/11/18 20:18 Medications: Current Medications Acetaminophen (Tylenol) 650 mg PO Q4H PRN PRN Reason: Headache/Fever or Pain Last Admin: 12/14/18 19:54 Dose: 650 mg Hydrocodone Bitart/Acetaminophen ([place] 5/325) 1 tab PO Q6H PRN PRN Reason: Pain 4-6 Albuterol/Ipratropium (Duoneb) 3 ml NEB [id number] [facility] Last Admin: 12/15/18 06:51 Dose: 3 ml Amitriptyline HCl (Elavil) 50 mg PO DAILY [facility] Last Admin: 12/15/18 09:52 Dose: 50 mg Digoxin (Lanoxin) 0.125 mg PO DAILY [facility] Last Admin: 12/15/18 09:51 Dose: 0.125 mg Diltiazem HCl (Cardizem Cd) 120 mg PO BID [facility] Last Admin: 12/15/18 09:52 Dose: 120 mg Famotidine (Pepcid) 20 mg PO BID [facility] Last Admin: 12/15/18 09:52 Dose: 20 mg Guaifenesin/Dextromethorphan (Robitussin Dm) 15 ml PO Q4H PRN PRN Reason: Cough Metoprolol Tartrate (Lopressor) 50 mg PO BID [facility] Last Admin: 12/15/18 09:52 Dose: 50 mg Ondansetron HCl (Zofran) 4 mg SLOW IVP Q6H PRN PRN Reason: Nausea/Vomiting Quetiapine Fumarate (Seroquel) 50 mg PO HS [facility] Last Admin: 12/14/18 19:55 Dose: 50 mg Senna/Docusate Sodium (Senokot S) 2 tab PO BID PRN PRN Reason: Constipation Sodium Chloride (Flush - Normal Saline) 10 ml IVF Q12HR [facility] Last Admin: 12/15/18 09:52 Dose: 10 ml Sodium Chloride (Flush - Normal Saline) 10 ml IVF PRN PRN PRN Reason: Saline Flush Thyroid ([place] Thyroid) 120 mg PO DAILY [facility] Last Admin: 12/15/18 09:51 Dose: 120 mg
--- NOTE | 2018-12-15 11:30 | OP ---
DATE OF PROCEDURE: 12/14/2018 PROCEDURE PERFORMED: Fiberoptic bronchoscopy. INDICATION: Left upper lobe mass. DESCRIPTION OF PROCEDURE: The patient was sedated with anesthesia presence, intubated, general anesthetic. Bronchoscope was introduced, passed down her trachea to the main eryn, which was sharp. The right upper lobe was completely obstructed with the exception of the apical segment. There was a probable mass and this area was washed, brushed, and biopsied multiple times. She tolerated the procedure well. She was transported upstairs. I examined her several times this afternoon. She was in no distress after the bronchoscopy. I explained to the son that she would likely cough up a little bit of blood for a day or 2. In probably 2 days, we will have results of the biopsy. Still being followed for atrial fibrillation. I met with the son and answered all of his questions. Job ID: [id number] MTDD
[2018-12-16] MEDS: Digoxin 0.125 MG TAB PO SCH (08:32)
[2018-12-16] MEDS: Amitriptyline HCl 25 MG TAB PO SCH (08:32)
[2018-12-16] MEDS: Thyroid 60 MG TAB PO SCH (08:32)
[2018-12-16] MEDS: Famotidine 20 MG TAB PO SCH ×2 (08:32→20:43)
[2018-12-16] MEDS: Metoprolol Tartrate 50 MG TAB PO SCH ×2 (08:32→20:43)
[2018-12-16] MEDS: Aspirin 81 mg Enteric Coated Tablet PO SCH (08:33)
[2018-12-16] MEDS ORDERED: Enoxaparin Sodium 60 MG/0.6 ML SYRINGE SC SCH (09:00)
--- NOTE | 2018-12-16 13:10 | PQF ---
DATE: 12-16-18 ATTN: DR. DARIEN LEBLANC Please exercise your independent, professional judgment in responding to the clarification form. Clinical indicators are provided on the bottom of this form for your review Please check appropriate box(s): [ ] Encephalopathy: Type: [ ] Acute [ ] Subacute [ ] Chronic Etiology: [ ] Metabolic [ ] Toxic [ ] Unspecified [ ] in the setting of underlying dementia [ ] Other (please specify) [ ] Transient Alteration of Awareness [ X ] Other diagnosis ____Delirium [ ] Unable to determine In addition, please specify: Present on Admission (POA): [ ] Yes [ X ] No [ ] Unable to determine For continuity of documentation, please document condition throughout progress notes and discharge summary. Thank You. CLINICAL INDICATORS - SIGNS / SYMPTOMS / LABS CONSULT NOTE DR. IRAHETA SHE DOES HAVE SOME CONFUSION. IMPRESSION: CONFUSION CONSULT NOTE DR. LLANES 12-12-18: SHE SEEN A LITTLE CONFUSED PN DR. PEDERSEN 12-13-18: IS IN RESTRAINTS, NOT ORIENTED, BARELY OPENS EYES, LIKELY HAS UNDERLYING DEMENTIA WITH DELIRIUM NOW CONSULT NOTE DR. LLANES 12-13-18: I THINK GIVEN HER ENCEPHALOPATHY, THE BEST EXPEDITIOUS WAY TO OBTAIN A DX IS WITH BRONCHOSCOPY. CONSULT NOTE YELENA MORAN PA-C 12-13-18: ENCEPHALOPATHY RISK FACTORS: ER: SOB, LUNG MASS, HYPOTHYROIDISM CONSULT NOTE DR. LLANES, 12-13-18: 60# WEIGHT LOSS BY HER REPORT, ENCEPHALOPATHY, MALNUTRITION TREATMENTS: RESP ASSESSMENTS 12-13-18: O2L NC NURSES NOTE 12-13-18: AGITATED AND DISORIENTED. WE DID TRY USING MEDICATION, BUT DID NOT WORK, PT THEN GREW COMBATIVE AND WE ENDED UP GETTING AN ORDER FOR RESTRAINTS (This form is maintained as a part of the permanent medical record) 2014 [employer]. All Rights Reserved [email or web address] Office: [phone] [facility]ITAL[facility]il[facility]
--- NOTE | 2018-12-16 13:39 | PRG ---
DATE OF SERVICE: SUBJECTIVE: Ms. Powers continues to be somewhat confused. She is currently complaining of hemoptysis. No other current complaints. She continues to be in sinus rhythm. OBJECTIVE: VITAL SIGNS: Blood pressure 136/68, pulse 93, temperature 98.3. LUNGS: Clear to auscultation. HEART: Regular rate and rhythm. ABDOMEN: Soft, nontender, nondistended. EXTREMITIES: No edema. IMPRESSION: 1. Atrial fibrillation. 2. Previous tobacco abuse. 3. Lung mass. 4. Confusion. RECOMMENDATIONS: At this point, Ms. Powers appears to be in sinus rhythm and has it over the last 2 days. We will hold off on anticoagulation therapy due to hemoptysis. This may be due to the bronchoscopy. We will defer to Dr. Doc Lazaro. Once this is improved, we will therefore recommend anticoagulation treatment. Pending tissue biopsy. Continue Multaq. She is also on Cardizem 120 b.i.d. in addition to low-dose digoxin. We will stop aspirin once anticoagulation therapy is started. Job ID: [id number]
--- NOTE | 2018-12-16 14:49 | PDOC.PN ---
- Subjective Encounter Start Date: 12/16/18 Encounter Start Time: 07:20 Pt seen for followup re: lung mass. Says she feels okay. Cough+, small amount of blood in sputum. - Objective Resuscitation Status - Order Detail: 12/11/18 18:34 Resuscitation Status Routine Resuscitation Status: FULL: Full Resuscitation Discussed with: POA: nallely KLEIN Reviewed: Yes Vital Signs & Weight: Vital Signs (12 hours) Temp Pulse Resp BP Pulse Ox 12/16/18 14:05 93 16 12/16/18 12:30 98.3 F 93 18 126/68 93 L 12/16/18 08:33 110 H 12/16/18 08:32 110 H 12/16/18 08:00 98.2 F 110 H 18 128/68 94 L 12/16/18 07:45 94 L 12/16/18 07:42 97 20 12/16/18 04:00 97.4 F L 85 16 108/59 L 94 L Weight Weight 127 lb I&O: 12/15/18 12/16/18 12/17/18 06:59 06:59 06:59 Intake Total 480 930 120 Output Total 875 Balance 480 55 120 Result Diagrams: 12/12/18 04:48 12/13/18 09:09 EKG Reviewed by me: Yes (Tele: NSR) Phys Exam - Physical Examination Constitutional: NAD HEENT: moist MMs Neck: supple Respiratory: clear to auscultation bilateral Cardiovascular: RRR Gastrointestinal: soft Neurological: moves all 4 limbs Psychiatric: normal affect Dx/Plan (1) Mass of right lung Code(s): R91.8 - OTHER NONSPECIFIC ABNORMAL FINDING OF LUNG FIELD Status: Acute Comment: workup in progress. s/p bronch, path negative so far. (2) Afib Code(s): I48.91 - UNSPECIFIED ATRIAL FIBRILLATION Status: Acute Qualifiers: Atrial fibrillation type: paroxysmal Qualified Code(s): I48.0 - Paroxysmal atrial fibrillation Comment: pt is in NSR now. No anticoagulation while workup in progress for lung mass. (3) HTN (hypertension) Code(s): I10 - ESSENTIAL (PRIMARY) HYPERTENSION Status: Chronic Qualifiers: Hypertension type: essential hypertension Qualified Code(s): I10 - Essential (primary) hypertension Comment: controlled (4) Hypothyroidism Code(s): E03.9 - HYPOTHYROIDISM, UNSPECIFIED Status: Chronic Qualifiers: Hypothyroidism type: acquired Qualified Code(s): E03.9 - Hypothyroidism, unspecified Comment: continue thyroid replacement therapy (5) Delirium Code(s): R41.0 - DISORIENTATION, UNSPECIFIED Status: Resolved - Plan * . Review of Systems - Review of Systems Respiratory: Cough, Hemoptysis, Sputum. negative: Dry, Shortness of Breath, SOB with Excertion, Pleuritic Pain, Wheezing Cardiovascular: negative: chest pain, palpitations, orthopnea, paroxysmal nocturnal dyspnea, edema, light headedness - Medications/Allergies Allergies/Adverse Reactions: Allergies Allergy/AdvReac Type Severity Reaction Status Date / Time No Known Drug Allergies Allergy Verified 12/11/18 20:18 Medications: Current Medications Acetaminophen (Tylenol) 650 mg PO Q4H PRN PRN Reason: Headache/Fever or Pain Last Admin: 12/14/18 19:54 Dose: 650 mg Hydrocodone Bitart/Acetaminophen ([place] 5/325) 1 tab PO Q6H PRN PRN Reason: Pain 4-6 Albuterol/Ipratropium (Duoneb) 3 ml NEB [id number] [facility] Last Admin: 12/16/18 14:05 Dose: 3 ml Amitriptyline HCl (Elavil) 50 mg PO DAILY [facility] Last Admin: 12/16/18 08:32 Dose: 50 mg Aspirin (Ecotrin) 81 mg PO DAILY [facility] Last Admin: 12/16/18 08:33 Dose: 81 mg Digoxin (Lanoxin) 0.125 mg PO DAILY [facility] Last Admin: 12/16/18 08:32 Dose: 0.125 mg Diltiazem HCl (Cardizem Cd) 120 mg PO BID [facility] Last Admin: 12/16/18 08:33 Dose: 120 mg Famotidine (Pepcid) 20 mg PO BID [facility] Last Admin: 12/16/18 08:32 Dose: 20 mg Guaifenesin/Dextromethorphan (Robitussin Dm) 15 ml PO Q4H PRN PRN Reason: Cough Metoprolol Tartrate (Lopressor) 50 mg PO BID [facility] Last Admin: 12/16/18 08:32 Dose: 50 mg Ondansetron HCl (Zofran) 4 mg SLOW IVP Q6H PRN PRN Reason: Nausea/Vomiting Quetiapine Fumarate (Seroquel) 50 mg PO HS [facility] Last Admin: 12/15/18 21:04 Dose: 50 mg Senna/Docusate Sodium (Senokot S) 2 tab PO BID PRN PRN Reason: Constipation Sodium Chloride (Flush - Normal Saline) 10 ml IVF Q12HR [facility] Last Admin: 12/16/18 08:33 Dose: 10 ml Sodium Chloride (Flush - Normal Saline) 10 ml IVF PRN PRN PRN Reason: Saline Flush Thyroid ([place] Thyroid) 120 mg PO DAILY [facility] Last Admin: 12/16/18 08:32 Dose: 120 mg
--- NOTE | 2018-12-16 17:31 | PRG ---
DATE OF SERVICE: 12/16/2018 SUBJECTIVE: Ms. Powers's biopsies, brushings and washings surprisingly were negative for malignancy. OBJECTIVE: Vital signs remained stable. She is still confused. She is afebrile. Heart rate is 93, respiratory rate 18, oximetry is 93% on 2 L, blood pressure 126/68. Lungs, heart, and abdomen are unchanged. IMPRESSION: Lung mass, most likely malignant. The right upper lobe was hyperemic with an obstructed bronchus with the exception of the apex. I am surprise that the pathology was negative. Her AFB smears are negative. Cultures negative. I doubt this is a fungus such as histoplasma. As I have explained to the son, the next step is a CT-guided biopsy, although I am not sure if she would be a candidate for any type of treatment. Her orders have been placed. This probably will get done until early next week. Job ID: [id number]
[2018-12-16] MEDS: HYDROcodone/Acetaminophen 5/325 mg Tablet PO PRN (20:45)
[2018-12-17] MEDS: Amitriptyline HCl 25 MG TAB PO SCH (09:06)
[2018-12-17] MEDS: Aspirin 81 mg Enteric Coated Tablet PO SCH (09:07)
[2018-12-17] MEDS: Digoxin 0.125 MG TAB PO SCH (09:07)
[2018-12-17] MEDS: Thyroid 60 MG TAB PO SCH (09:10)
[2018-12-17] MEDS: Metoprolol Tartrate 50 MG TAB PO SCH ×2 (09:10→20:21)
[2018-12-17] MEDS: Famotidine 20 MG TAB PO SCH ×2 (09:10→20:21)
[2018-12-17] MEDS: Acetaminophen 325 MG TAB PO PRN ×2 (09:10→20:21)
--- NOTE | 2018-12-17 11:17 | PDOC.PN ---
- Subjective Encounter Start Date: 12/17/18 Encounter Start Time: 07:20 Pt seen for followup re: lung mass. says she feels okay. Had shortness of breath earlier, not now. - Objective Resuscitation Status - Order Detail: 12/11/18 18:34 Resuscitation Status Routine Resuscitation Status: FULL: Full Resuscitation Discussed with: POA: nallely KLEIN Reviewed: Yes Vital Signs & Weight: Vital Signs (12 hours) Temp Pulse Resp BP Pulse Ox 12/17/18 10:32 93 L 12/17/18 10:29 66 16 12/17/18 09:10 95 12/17/18 09:07 95 12/17/18 07:31 98.6 F 90 20 119/57 L 94 L 12/17/18 07:30 94 L 12/17/18 04:00 98.8 F 89 20 124/60 97 12/17/18 00:11 77 16 92 L Weight Weight 118 lb I&O: 12/16/18 12/17/18 12/18/18 06:59 06:59 06:59 Intake Total 930 540 Output Total 875 400 Balance 55 140 Result Diagrams: 12/12/18 04:48 12/13/18 09:09 Additional Labs: Tele: NSR Phys Exam - Physical Examination Constitutional: NAD HEENT: moist MMs Neck: supple Respiratory: clear to auscultation bilateral Cardiovascular: RRR Gastrointestinal: soft Neurological: moves all 4 limbs Psychiatric: normal affect Skin: no rash Dx/Plan (1) Mass of right lung Code(s): R91.8 - OTHER NONSPECIFIC ABNORMAL FINDING OF LUNG FIELD Status: Acute Comment: workup in progress, may need CT-guided biopsy (2) Afib Code(s): I48.91 - UNSPECIFIED ATRIAL FIBRILLATION Status: Acute Qualifiers: Atrial fibrillation type: paroxysmal Qualified Code(s): I48.0 - Paroxysmal atrial fibrillation Comment: pt is in NSR now. Not on anticoagulation at this time. (3) HTN (hypertension) Code(s): I10 - ESSENTIAL (PRIMARY) HYPERTENSION Status: Chronic Qualifiers: Hypertension type: essential hypertension Qualified Code(s): I10 - Essential (primary) hypertension Comment: controlled (4) Hypothyroidism Code(s): E03.9 - HYPOTHYROIDISM, UNSPECIFIED Status: Chronic Qualifiers: Hypothyroidism type: acquired Qualified Code(s): E03.9 - Hypothyroidism, unspecified Comment: on thyroid replacement therapy (5) Delirium Code(s): R41.0 - DISORIENTATION, UNSPECIFIED Status: Resolved - Plan * . Review of Systems - Review of Systems Constitutional: negative: fever, chills, sweats, weakness, malaise Respiratory: Cough, Shortness of Breath, Sputum Cardiovascular: negative: chest pain, palpitations, orthopnea, paroxysmal nocturnal dyspnea, edema, light headedness - Medications/Allergies Allergies/Adverse Reactions: Allergies Allergy/AdvReac Type Severity Reaction Status Date / Time No Known Drug Allergies Allergy Verified 12/11/18 20:18 Medications: Current Medications Acetaminophen (Tylenol) 650 mg PO Q4H PRN PRN Reason: Headache/Fever or Pain Last Admin: 12/17/18 09:10 Dose: 650 mg Hydrocodone Bitart/Acetaminophen ([place] 5/325) 1 tab PO Q6H PRN PRN Reason: Pain 4-6 Last Admin: 12/16/18 20:45 Dose: 1 tab Albuterol/Ipratropium (Duoneb) 3 ml NEB [id number] [facility] Last Admin: 12/17/18 10:29 Dose: 3 ml Amitriptyline HCl (Elavil) 50 mg PO DAILY [facility] Last Admin: 12/17/18 09:06 Dose: 50 mg Aspirin (Ecotrin) 81 mg PO DAILY [facility] Last Admin: 12/17/18 09:07 Dose: 81 mg Digoxin (Lanoxin) 0.125 mg PO DAILY [facility] Last Admin: 12/17/18 09:07 Dose: 0.125 mg Diltiazem HCl (Cardizem Cd) 120 mg PO BID [facility] Last Admin: 12/17/18 09:10 Dose: 120 mg Famotidine (Pepcid) 20 mg PO BID [facility] Last Admin: 12/17/18 09:10 Dose: 20 mg Guaifenesin/Dextromethorphan (Robitussin Dm) 15 ml PO Q4H PRN PRN Reason: Cough Metoprolol Tartrate (Lopressor) 50 mg PO BID [facility] Last Admin: 12/17/18 09:10 Dose: 50 mg Ondansetron HCl (Zofran) 4 mg SLOW IVP Q6H PRN PRN Reason: Nausea/Vomiting Quetiapine Fumarate (Seroquel) 50 mg PO HS [facility] Last Admin: 12/16/18 20:42 Dose: 50 mg Senna/Docusate Sodium (Senokot S) 2 tab PO BID PRN PRN Reason: Constipation Sodium Chloride (Flush - Normal Saline) 10 ml IVF Q12HR [facility] Last Admin: 12/17/18 09:10 Dose: 10 ml Sodium Chloride (Flush - Normal Saline) 10 ml IVF PRN PRN PRN Reason: Saline Flush Thyroid ([place] Thyroid) 120 mg PO DAILY [facility] Last Admin: 12/17/18 09:10 Dose: 120 mg
[2018-12-17 14:11] LABS: Fungus Stain Final report (.)
--- NOTE | 2018-12-17 16:36 | PDOC.CTH ---
Cardiology Progress Note - Subjective The pt seen and examined. No overnight events. No cardiac complaints. - Objective Vital Signs Temp Pulse Resp BP Pulse Ox 12/17/18 15:38 97.9 F 81 18 125/58 L 97 12/17/18 12:20 97.5 F L 73 18 116/80 100 12/17/18 10:32 93 L 12/17/18 10:29 66 16 12/17/18 09:10 95 12/17/18 09:07 95 12/17/18 07:31 98.6 F 90 20 119/57 L 94 L 12/17/18 07:30 94 L Weight 118 lb 12/16/18 12/17/18 12/18/18 06:59 06:59 06:59 Intake Total 930 540 Output Total 875 400 Balance 55 140 - Physical Examination General/Neuro: alert & oriented x3 Neck: no JVD present Lungs: other: (diminished at bases) Heart: RRR Abdomen: soft Extremities: other: (No edema) - Telemetry Telemetry Rhythm: SR - Labs Result Diagrams: 12/12/18 04:48 12/13/18 09:09 Troponin/CKMB CK-MB (CK-2) 1.1 ng/mL (0-6.6) 12/11/18 23:11 Troponin I 0.067 ng/mL (< 0.028) H 12/11/18 23:11 - Assessment/Plan 1. Afib/Aflutter with RVR - remains in SR with MAT; on Diltiazem 120mg qd, digoxin, Metoprolol, and ASA 81mg Qd for high risk of fall 2/2 weakness 2. Right lung mass? - biopsy showed no mass 3. Hypothyroidism 4. Cachexia MAR reviewed Pt.seen and eval.by me.I agreewith the A/Pby the STORE DIRECTOR. RRR,chest clear. Review of Systems - Review of Systems Constitutional: reports: no symptoms reported EENTM: reports: no symptoms reported Respiratory: reports: no symptoms reported Cardiac (ROS): reports: no symptoms reported ABD/GI: reports: no symptoms reported : reports: no symptoms reported Musculoskeletal: reports: no symptoms reported Skin: reports: no symptoms reported Neurological: reports: no symptoms reported Endocrine: reports: no symptoms reported
--- NOTE | 2018-12-17 16:59 | PRG ---
DATE OF SERVICE: 12/17/2018 Ms. Powers is afebrile. Heart rate is 81, respiratory rate 18, oximetry is 97, blood pressure 125/58. Lungs, heart, and abdomen are unchanged. Her rate appears to be controlled. We are awaiting CT-guided lung biopsy. Job ID: [id number]
[2018-12-17] MEDS: HYDROcodone/Acetaminophen 5/325 mg Tablet PO PRN (21:42)
[2018-12-18] MEDS: Digoxin 0.125 MG TAB PO SCH (08:41)
[2018-12-18] MEDS: Amitriptyline HCl 25 MG TAB PO SCH (08:41)
[2018-12-18] MEDS: Aspirin 81 mg Enteric Coated Tablet PO SCH (08:41)
[2018-12-18] MEDS: Famotidine 20 MG TAB PO SCH ×2 (08:42→20:32)
[2018-12-18] MEDS: Thyroid 60 MG TAB PO SCH (08:42)
[2018-12-18] MEDS: Metoprolol Tartrate 50 MG TAB PO SCH ×2 (08:42→20:33)
[2018-12-18] MEDS: Acetaminophen 325 MG TAB PO PRN ×2 (08:48→20:32)
--- NOTE | 2018-12-18 12:29 | PDOC.PN ---
- Subjective Encounter Start Date: 12/18/18 Encounter Start Time: 07:20 Pt seen for followup re: lung mass. Mildly confused today. - Objective Resuscitation Status - Order Detail: 12/11/18 18:34 Resuscitation Status Routine Resuscitation Status: FULL: Full Resuscitation Discussed with: POA: nallely KLEIN Reviewed: Yes Vital Signs & Weight: Vital Signs (12 hours) Temp Pulse Resp BP Pulse Ox 12/18/18 11:39 98.1 F 89 18 108/66 94 L 12/18/18 08:42 94 12/18/18 08:41 94 12/18/18 07:30 98.6 F 94 18 136/59 L 97 12/18/18 07:15 95 12/18/18 07:14 67 18 95 12/18/18 04:47 98.1 F 78 20 136/63 96 Weight Weight 119 lb I&O: 12/17/18 12/18/18 12/19/18 06:59 06:59 06:59 Intake Total 540 500 Output Total 400 550 Balance 140 -50 Result Diagrams: 12/12/18 04:48 12/13/18 09:09 EKG Reviewed by me: Yes (Tele: NSR) Phys Exam - Physical Examination Constitutional: NAD HEENT: moist MMs Neck: supple Respiratory: clear to auscultation bilateral Cardiovascular: RRR Gastrointestinal: soft Musculoskeletal: pulses present Neurological: moves all 4 limbs Psychiatric: normal affect Dx/Plan (1) Mass of right lung Code(s): R91.8 - OTHER NONSPECIFIC ABNORMAL FINDING OF LUNG FIELD Status: Acute Comment: awaiting CT-guided biopsy (2) Afib Code(s): I48.91 - UNSPECIFIED ATRIAL FIBRILLATION Status: Acute Qualifiers: Atrial fibrillation type: paroxysmal Qualified Code(s): I48.0 - Paroxysmal atrial fibrillation Comment: pt is in NSR now. (3) HTN (hypertension) Code(s): I10 - ESSENTIAL (PRIMARY) HYPERTENSION Status: Chronic Qualifiers: Hypertension type: essential hypertension Qualified Code(s): I10 - Essential (primary) hypertension Comment: controlled (4) Hypothyroidism Code(s): E03.9 - HYPOTHYROIDISM, UNSPECIFIED Status: Chronic Qualifiers: Hypothyroidism type: acquired Qualified Code(s): E03.9 - Hypothyroidism, unspecified Comment: continue thyroid replacement therapy (5) Delirium Code(s): R41.0 - DISORIENTATION, UNSPECIFIED Status: Resolved - Plan * . Review of Systems - Review of Systems Respiratory: SOB with Excertion. negative: Cough, Shortness of Breath, Pleuritic Pain, Wheezing Cardiovascular: negative: chest pain, palpitations, orthopnea, paroxysmal nocturnal dyspnea, edema, light headedness - Medications/Allergies Allergies/Adverse Reactions: Allergies Allergy/AdvReac Type Severity Reaction Status Date / Time No Known Drug Allergies Allergy Verified 12/11/18 20:18 Medications: Current Medications Acetaminophen (Tylenol) 650 mg PO Q4H PRN PRN Reason: Headache/Fever or Pain Last Admin: 12/18/18 08:48 Dose: 650 mg Hydrocodone Bitart/Acetaminophen ([place] 5/325) 1 tab PO Q6H PRN PRN Reason: Pain 4-6 Last Admin: 12/17/18 21:42 Dose: 1 tab Albuterol/Ipratropium (Duoneb) 3 ml NEB [id number] [facility] Last Admin: 12/18/18 07:14 Dose: 3 ml Amitriptyline HCl (Elavil) 50 mg PO DAILY [facility] Last Admin: 12/18/18 08:41 Dose: 50 mg Aspirin (Ecotrin) 81 mg PO DAILY [facility] Last Admin: 12/18/18 08:41 Dose: 81 mg Digoxin (Lanoxin) 0.125 mg PO DAILY [facility] Last Admin: 12/18/18 08:41 Dose: 0.125 mg Diltiazem HCl (Cardizem Cd) 120 mg PO BID [facility] Last Admin: 12/18/18 08:42 Dose: 120 mg Famotidine (Pepcid) 20 mg PO BID [facility] Last Admin: 12/18/18 08:42 Dose: 20 mg Guaifenesin/Dextromethorphan (Robitussin Dm) 15 ml PO Q4H PRN PRN Reason: Cough Metoprolol Tartrate (Lopressor) 50 mg PO BID [facility] Last Admin: 12/18/18 08:42 Dose: 50 mg Ondansetron HCl (Zofran) 4 mg SLOW IVP Q6H PRN PRN Reason: Nausea/Vomiting Quetiapine Fumarate (Seroquel) 50 mg PO HS [facility] Last Admin: 12/17/18 20:21 Dose: 50 mg Senna/Docusate Sodium (Senokot S) 2 tab PO BID PRN PRN Reason: Constipation Sodium Chloride (Flush - Normal Saline) 10 ml IVF Q12HR [facility] Last Admin: 12/18/18 08:42 Dose: 10 ml Sodium Chloride (Flush - Normal Saline) 10 ml IVF PRN PRN PRN Reason: Saline Flush Thyroid ([place] Thyroid) 120 mg PO DAILY [facility] Last Admin: 12/18/18 08:42 Dose: 120 mg
--- NOTE | 2018-12-18 19:53 | PRG ---
DATE OF SERVICE: 12/18/2018 SUBJECTIVE: Ms. Powers had no complaints. She is in very pleasant mood as always. She is in no distress. OBJECTIVE: VITAL SIGNS: She is afebrile. Heart rate is in 70s, respiratory rate 17, oximetry is 98% on 2 L, and blood pressure 124/58. LUNGS: Clear. HEART: Irregular. ABDOMEN: Soft. IMPRESSION: 1. Very large right upper lobe mass, hopefully on the schedule for CT-guided biopsies early this week. 2. Status post negative fiberoptic bronchoscopy with right upper lobe obstruction, but negative brushings, washings, and biopsies. 3. Atrial fibrillation. 4. Diastolic dysfunction. 5. Sinus rhythm with multifocal atrial tachycardia currently. 6. History of hypothyroidism. 7. Significant weight loss over the last year with deconditioning. 8. Early dementia, most likely. PLAN: Await biopsy. Job ID: [id number]
[2018-12-19] MEDS: Amitriptyline HCl 25 MG TAB PO SCH (10:32)
[2018-12-19] MEDS: Famotidine 20 MG TAB PO SCH ×2 (10:32→20:35)
[2018-12-19] MEDS: Digoxin 0.125 MG TAB PO SCH (10:36)
[2018-12-19] MEDS: Aspirin 81 mg Enteric Coated Tablet PO SCH (10:37)
[2018-12-19] MEDS: Metoprolol Tartrate 50 MG TAB PO SCH ×2 (10:37→20:35)
[2018-12-19] MEDS: Thyroid 60 MG TAB PO SCH (10:38)
--- NOTE | 2018-12-19 11:13 | PRG ---
DATE OF SERVICE: 12/19/2018 Ms. Powers is afebrile. Heart rate is in the 90s, respiratory rate is 20, oximetry is 90% on 2 L, and blood pressure 140/65. She had a CT-guided lung biopsy this morning. Hopefully, this specimen will give us pathological diagnosis. Given that this mass is abutting the pleura, it is extremely unlikely she will have a delayed pneumothorax after the biopsy. Job ID: [id number]
--- NOTE | 2018-12-19 12:32 | RAD ---
INSPIRATORY AND EXPIRATORY PA CHEST XRAY: DATE: 12/19/2018. HISTORY: Post biopsy large right upper lobe mass. COMPARISON: 12/06/2018. FINDINGS: A large right upper lobe mass is again seen which occupies close to of the volume right hemithora x. There are parenchymal and interstitial lung changes seen at the right lung apex and medial aspect of the right upper lobe likely related to postobstructive changes due to large right upper lobe mass which extends from the right hilum to the periphery. There is no evidence of a pneumothorax. Minim al pleural density is seen at the right lung apex also present on the prior study. Small right pleur al effusion is noted at the right lung base. The left lung is clear. The pleural density at the rig ht lung base was also seen on a study on 12/11/2018. The left lung remains clear. Vascular calcifica tion is seen in the thoracic aorta. Cardiac silhouette is within normal limits. IMPRESSION: 1. Large right upper lobe mass with findings likely related to postobstructive pneumonitis or atelec tasis within the right upper lobe. 2. Probable small right pleural effusion also noted on the study on 12/11/2018. 3. No evidence of a pneumothorax. POS: [facility]
--- NOTE | 2018-12-19 14:47 | CT ---
CT GUIDED PERCUTANEOUS BIOPSY OF LARGE RIGHT UPPER LOBE MASS 12/19/18 HISTORY: Large right upper lobe mass. Biopsy was requested. TECHNIQUE: The procedure including the risks and complications were explained to the patient and informed consen t was obtained. A limited noncontrasted CT scan was obtained through the upper chest with grid locali zer in place. The skin and subcutaneous tissues were infiltrated with buffered 1% lidocaine for local anesthesia. Small skin incision was made. A 17 gauge guide needle was advanced followed by three axial noncontrasted CT images. This was repeat ed until the needle was placed just within the large right upper lobe mass. A total of 3 18 gauge cor e needle biopsy specimens were obtained utilizing coaxial technique through the 17 gauge guide needle . The needle was removed, and hemostasis was achieved with direct pressure. Followup CT images demonstrate no significant pneumothorax. The punctate gas densities are seen anter omedially which are remote from site of biopsy which could potentially represent punctate foci of gas within the pleural space; however, there is no significant pneumothorax present post biopsy. Patient tolerated the procedure well without immediate complication. Immediate chest x-ray demonstrat es no significant pneumothorax. Dry sterile dressing was placed at puncture site after manual compression was applied. Dry sterile dr essing was placed. Patient tolerated the procedure well without immediate complication. IMPRESSION: 1. Large right upper lobe mass with interstitial thickening and opacities within the right upper lobe and lung apex which could be related to postobstructive pneumonitis or atelectasis. 2. Small to moderate sized right pleural effusion layering dependently within the lungs posterio rly. 3. Technically successful CT guided percutaneous biopsy of large right upper lobe mass. No signi ficant pneumothorax is seen postprocedure. POS: [facility]
--- NOTE | 2018-12-19 17:29 | PDOC.PN ---
- Subjective Encounter Start Date: 12/19/18 Encounter Start Time: 17:28 Pt seen for followup re: lung mass. Says she feels well, denies chest pain. - Objective Resuscitation Status - Order Detail: 12/11/18 18:34 Resuscitation Status Routine Resuscitation Status: FULL: Full Resuscitation Discussed with: POA: nallely KLEIN Reviewed: Yes Vital Signs & Weight: Vital Signs (12 hours) Temp Pulse Resp BP BP Pulse Ox 12/19/18 16:10 98.2 F 74 20 114/58 L 96 12/19/18 11:55 74 16 97 12/19/18 10:36 94 12/19/18 10:31 94 12/19/18 07:50 98.3 F 94 20 148/65 H 95 12/19/18 07:02 96 12/19/18 07:00 83 16 96 Weight Weight 116 lb 14.4 oz I&O: 12/18/18 12/19/18 12/20/18 06:59 06:59 06:59 Intake Total 500 750 Output Total 550 700 Balance -50 50 Result Diagrams: 12/12/18 04:48 12/13/18 09:09 EKG Reviewed by me: Yes (Tele: NSR) Phys Exam - Physical Examination Constitutional: NAD HEENT: moist MMs Neck: supple Respiratory: clear to auscultation bilateral Cardiovascular: RRR Gastrointestinal: soft Neurological: moves all 4 limbs Psychiatric: normal affect Dx/Plan (1) Mass of right lung Code(s): R91.8 - OTHER NONSPECIFIC ABNORMAL FINDING OF LUNG FIELD Status: Acute Comment: s/p CT-guided biopsy today, await path report (2) Afib Code(s): I48.91 - UNSPECIFIED ATRIAL FIBRILLATION Status: Acute Qualifiers: Atrial fibrillation type: paroxysmal Qualified Code(s): I48.0 - Paroxysmal atrial fibrillation Comment: pt is in NSR now, off of anticoagulation (3) HTN (hypertension) Code(s): I10 - ESSENTIAL (PRIMARY) HYPERTENSION Status: Chronic Qualifiers: Hypertension type: essential hypertension Qualified Code(s): I10 - Essential (primary) hypertension Comment: controlled (4) Hypothyroidism Code(s): E03.9 - HYPOTHYROIDISM, UNSPECIFIED Status: Chronic Qualifiers: Hypothyroidism type: acquired Qualified Code(s): E03.9 - Hypothyroidism, unspecified Comment: on thyroid replacement therapy (5) Delirium Code(s): R41.0 - DISORIENTATION, UNSPECIFIED Status: Resolved - Plan * . Review of Systems - Review of Systems Cardiovascular: negative: chest pain, palpitations, orthopnea, paroxysmal nocturnal dyspnea, edema, light headedness Gastrointestinal: negative: Nausea, Vomiting, Abdominal Pain, Diarrhea, Constipation, Melena, Hematochezia - Medications/Allergies Allergies/Adverse Reactions: Allergies Allergy/AdvReac Type Severity Reaction Status Date / Time No Known Drug Allergies Allergy Verified 12/11/18 20:18 Medications: Current Medications Acetaminophen (Tylenol) 650 mg PO Q4H PRN PRN Reason: Headache/Fever or Pain Last Admin: 12/18/18 20:32 Dose: 650 mg Hydrocodone Bitart/Acetaminophen ([place] 5/325) 1 tab PO Q6H PRN PRN Reason: Pain 4-6 Last Admin: 12/17/18 21:42 Dose: 1 tab Albuterol/Ipratropium (Duoneb) 3 ml NEB [id number] [facility] Last Admin: 12/19/18 11:55 Dose: 3 ml Amitriptyline HCl (Elavil) 50 mg PO DAILY [facility] Last Admin: 12/19/18 10:32 Dose: 50 mg Aspirin (Ecotrin) 81 mg PO DAILY [facility] Last Admin: 12/19/18 10:37 Dose: 81 mg Digoxin (Lanoxin) 0.125 mg PO DAILY [facility] Last Admin: 12/19/18 10:36 Dose: 0.125 mg Diltiazem HCl (Cardizem Cd) 120 mg PO BID [facility] Last Admin: 12/19/18 10:31 Dose: 120 mg Famotidine (Pepcid) 20 mg PO BID [facility] Last Admin: 12/19/18 10:32 Dose: 20 mg Guaifenesin/Dextromethorphan (Robitussin Dm) 15 ml PO Q4H PRN PRN Reason: Cough Metoprolol Tartrate (Lopressor) 50 mg PO BID [facility] Last Admin: 12/19/18 10:37 Dose: 50 mg Ondansetron HCl (Zofran) 4 mg SLOW IVP Q6H PRN PRN Reason: Nausea/Vomiting Quetiapine Fumarate (Seroquel) 50 mg PO HS [facility] Last Admin: 12/18/18 20:32 Dose: 50 mg Senna/Docusate Sodium (Senokot S) 2 tab PO BID PRN PRN Reason: Constipation Sodium Chloride (Flush - Normal Saline) 10 ml IVF Q12HR [facility] Last Admin: 12/19/18 10:38 Dose: 10 ml Sodium Chloride (Flush - Normal Saline) 10 ml IVF PRN PRN PRN Reason: Saline Flush Thyroid ([place] Thyroid) 120 mg PO DAILY [facility] Last Admin: 12/19/18 10:38 Dose: 120 mg
[2018-12-20] MEDS: Amitriptyline HCl 25 MG TAB PO SCH (09:28)
[2018-12-20] MEDS: Digoxin 0.125 MG TAB PO SCH (09:28)
[2018-12-20] MEDS: Famotidine 20 MG TAB PO SCH ×2 (09:29→20:00)
[2018-12-20] MEDS: Metoprolol Tartrate 50 MG TAB PO SCH ×2 (09:29→20:01)
[2018-12-20] MEDS: Aspirin 81 mg Enteric Coated Tablet PO SCH (09:29)
[2018-12-20] MEDS: Thyroid 60 MG TAB PO SCH (09:30)
--- NOTE | 2018-12-20 12:54 | PDOC.PN ---
- Subjective Encounter Start Date: 12/20/18 Encounter Start Time: 07:00 Pt seen for followup re: lung mass. says she is okay. - Objective Resuscitation Status - Order Detail: 12/11/18 18:34 Resuscitation Status Routine Resuscitation Status: FULL: Full Resuscitation Discussed with: POA: nallely KLEIN Reviewed: Yes Vital Signs & Weight: Vital Signs (12 hours) Temp Pulse Resp BP Pulse Ox 12/20/18 11:30 97.0 F L 66 16 122/58 L 99 12/20/18 09:29 93 12/20/18 09:28 93 12/20/18 08:00 97 12/20/18 07:30 98.3 F 93 18 122/58 L 97 12/20/18 06:50 93 16 94 L 12/20/18 04:00 98.0 F 91 23 H 119/57 L 92 L Weight Weight 117 lb 3.2 oz I&O: 12/19/18 12/20/18 12/21/18 06:59 06:59 06:59 Intake Total 750 400 Output Total 700 500 Balance 50 -100 Result Diagrams: 12/12/18 04:48 12/13/18 09:09 EKG Reviewed by me: Yes (Tele: NSR) Phys Exam - Physical Examination Constitutional: NAD HEENT: moist MMs Neck: supple Respiratory: clear to auscultation bilateral Cardiovascular: RRR Gastrointestinal: soft Neurological: moves all 4 limbs Psychiatric: normal affect Dx/Plan (1) Mass of right lung Code(s): R91.8 - OTHER NONSPECIFIC ABNORMAL FINDING OF LUNG FIELD Status: Acute Comment: await pathology report (2) Afib Code(s): I48.91 - UNSPECIFIED ATRIAL FIBRILLATION Status: Acute Qualifiers: Atrial fibrillation type: paroxysmal Qualified Code(s): I48.0 - Paroxysmal atrial fibrillation Comment: pt is in NSR now. Start anticoagulation when all procedures done (3) HTN (hypertension) Code(s): I10 - ESSENTIAL (PRIMARY) HYPERTENSION Status: Chronic Qualifiers: Hypertension type: essential hypertension Qualified Code(s): I10 - Essential (primary) hypertension Comment: controlled (4) Hypothyroidism Code(s): E03.9 - HYPOTHYROIDISM, UNSPECIFIED Status: Chronic Qualifiers: Hypothyroidism type: acquired Qualified Code(s): E03.9 - Hypothyroidism, unspecified Comment: continue thyroid replacement therapy (5) Delirium Code(s): R41.0 - DISORIENTATION, UNSPECIFIED Status: Resolved - Plan * . Review of Systems - Review of Systems Cardiovascular: negative: chest pain, palpitations, orthopnea, paroxysmal nocturnal dyspnea, edema, light headedness Gastrointestinal: negative: Nausea, Vomiting, Abdominal Pain, Diarrhea, Constipation, Melena, Hematochezia - Medications/Allergies Allergies/Adverse Reactions: Allergies Allergy/AdvReac Type Severity Reaction Status Date / Time No Known Drug Allergies Allergy Verified 12/11/18 20:18 Medications: Current Medications Acetaminophen (Tylenol) 650 mg PO Q4H PRN PRN Reason: Headache/Fever or Pain Last Admin: 12/18/18 20:32 Dose: 650 mg Hydrocodone Bitart/Acetaminophen ([place] 5/325) 1 tab PO Q6H PRN PRN Reason: Pain 4-6 Last Admin: 12/17/18 21:42 Dose: 1 tab Albuterol/Ipratropium (Duoneb) 3 ml NEB [id number] [facility] Last Admin: 12/20/18 06:50 Dose: 3 ml Amitriptyline HCl (Elavil) 50 mg PO DAILY [facility] Last Admin: 12/20/18 09:28 Dose: 50 mg Aspirin (Ecotrin) 81 mg PO DAILY [facility] Last Admin: 12/20/18 09:29 Dose: 81 mg Digoxin (Lanoxin) 0.125 mg PO DAILY [facility] Last Admin: 12/20/18 09:28 Dose: 0.125 mg Diltiazem HCl (Cardizem Cd) 120 mg PO BID [facility] Last Admin: 12/20/18 09:29 Dose: 120 mg Famotidine (Pepcid) 20 mg PO BID [facility] Last Admin: 12/20/18 09:29 Dose: 20 mg Guaifenesin/Dextromethorphan (Robitussin Dm) 15 ml PO Q4H PRN PRN Reason: Cough Metoprolol Tartrate (Lopressor) 50 mg PO BID [facility] Last Admin: 12/20/18 09:29 Dose: 50 mg Ondansetron HCl (Zofran) 4 mg SLOW IVP Q6H PRN PRN Reason: Nausea/Vomiting Quetiapine Fumarate (Seroquel) 50 mg PO HS [facility] Last Admin: 12/19/18 20:34 Dose: 50 mg Senna/Docusate Sodium (Senokot S) 2 tab PO BID PRN PRN Reason: Constipation Sodium Chloride (Flush - Normal Saline) 10 ml IVF Q12HR [facility] Last Admin: 12/20/18 09:29 Dose: 10 ml Sodium Chloride (Flush - Normal Saline) 10 ml IVF PRN PRN PRN Reason: Saline Flush Thyroid ([place] Thyroid) 120 mg PO DAILY [facility] Last Admin: 12/20/18 09:30 Dose: 120 mg
--- NOTE | 2018-12-20 13:24 | PRG ---
DATE OF SERVICE: 12/20/2018 SUBJECTIVE: Ms. Powers is currently doing well. No current complaints. The breast biopsy was negative for malignancy. She is scheduled for a CT scan guided biopsy. She has been in sinus rhythm over the last 4 days. She is currently on Multaq. OBJECTIVE: VITAL SIGNS: Blood pressure 120/88, pulse 66, and temperature 97. LUNGS: Clear to auscultation. HEART: Regular rate and rhythm. ABDOMEN: Soft, nontender, and nondistended. EXTREMITIES: No edema. IMPRESSION: 1. Paroxysmal atrial fibrillation. 2. Lung mass. 3. Dementia. RECOMMENDATIONS: Ms. Powers from a CV standpoint appears stable. Her rhythm has been stable for the last 4 days. At this point, I would recommend transferring to Medical. Anticoagulation therapy can be started after all testing has been performed. I would recommend Eliquis at 5 mg b.i.d. Otherwise, I will plan to follow up with Ms. Powers in the office. If any further questions or issues arise, please do not hesitate to re-consult. Job ID: [id number]
[2018-12-20] MEDS: HYDROcodone/Acetaminophen 5/325 mg Tablet PO PRN (20:01)
[2018-12-21] MEDS: Digoxin 0.125 MG TAB PO SCH (09:07)
[2018-12-21] MEDS: Thyroid 60 MG TAB PO SCH (09:09)
[2018-12-21] MEDS: Amitriptyline HCl 25 MG TAB PO SCH (09:10)
[2018-12-21] MEDS: Aspirin 81 mg Enteric Coated Tablet PO SCH (09:10)
[2018-12-21] MEDS: Famotidine 20 MG TAB PO SCH ×2 (09:11→20:19)
[2018-12-21] MEDS: Metoprolol Tartrate 50 MG TAB PO SCH ×2 (09:11→20:21)
[2018-12-21] MEDS: HYDROcodone/Acetaminophen 5/325 mg Tablet PO PRN ×2 (10:27→15:48)
--- NOTE | 2018-12-21 12:36 | PDOC.PN ---
- Subjective Encounter Start Date: 12/21/18 Encounter Start Time: 09:00 Pt seen for followup re: lung cancer. Denies chest pain or shortness of breath. - Objective Resuscitation Status - Order Detail: 12/11/18 18:34 Resuscitation Status Routine Resuscitation Status: FULL: Full Resuscitation Discussed with: POA: nallely KLEIN Reviewed: Yes Vital Signs & Weight: Vital Signs (12 hours) Temp Pulse Resp BP BP Pulse Ox 12/21/18 09:11 84 103/65 12/21/18 09:07 84 12/21/18 08:21 98.0 F 81 16 103/65 97 12/21/18 07:28 96 12/21/18 07:25 72 16 96 12/21/18 04:02 97.9 F 69 18 107/59 L 92 L 12/21/18 00:46 97.5 F L 69 18 92/51 L 94 L Weight Weight 112 lb 8 oz I&O: 12/20/18 12/21/18 12/22/18 06:59 06:59 06:59 Intake Total 400 305 Output Total 500 Balance -100 305 Result Diagrams: 12/12/18 04:48 12/13/18 09:09 Additional Labs: labs reviewed by me Phys Exam - Physical Examination Constitutional: NAD HEENT: moist MMs Neck: supple Respiratory: clear to auscultation bilateral Cardiovascular: RRR Gastrointestinal: soft Neurological: moves all 4 limbs Psychiatric: normal affect Dx/Plan (1) Lung cancer Code(s): C34.90 - MALIGNANT NEOPLASM OF UNSP PART OF UNSP BRONCHUS OR LUNG Status: Acute Comment: lung adenocarcinoma on path report (2) Afib Code(s): I48.91 - UNSPECIFIED ATRIAL FIBRILLATION Status: Acute Qualifiers: Atrial fibrillation type: paroxysmal Qualified Code(s): I48.0 - Paroxysmal atrial fibrillation Comment: pt is in NSR now, off of anticoagulation (3) HTN (hypertension) Code(s): I10 - ESSENTIAL (PRIMARY) HYPERTENSION Status: Chronic Qualifiers: Hypertension type: essential hypertension Qualified Code(s): I10 - Essential (primary) hypertension Comment: controlled (4) Hypothyroidism Code(s): E03.9 - HYPOTHYROIDISM, UNSPECIFIED Status: Chronic Qualifiers: Hypothyroidism type: acquired Qualified Code(s): E03.9 - Hypothyroidism, unspecified Comment: thyroid replacement therapy (5) Delirium Code(s): R41.0 - DISORIENTATION, UNSPECIFIED Status: Resolved - Plan * . Review of Systems - Review of Systems Respiratory: Cough, Hemoptysis. negative: Dry, Shortness of Breath, SOB with Excertion, Pleuritic Pain, Sputum, Wheezing Cardiovascular: negative: chest pain, palpitations, orthopnea, paroxysmal nocturnal dyspnea, edema, light headedness - Medications/Allergies Allergies/Adverse Reactions: Allergies Allergy/AdvReac Type Severity Reaction Status Date / Time No Known Drug Allergies Allergy Verified 12/11/18 20:18 Medications: Current Medications Acetaminophen (Tylenol) 650 mg PO Q4H PRN PRN Reason: Headache/Fever or Pain Last Admin: 12/18/18 20:32 Dose: 650 mg Hydrocodone Bitart/Acetaminophen ([place] 5/325) 1 tab PO Q6H PRN PRN Reason: Pain 4-6 Last Admin: 12/21/18 10:27 Dose: 1 tab Albuterol/Ipratropium (Duoneb) 3 ml NEB [id number] [facility] Last Admin: 12/21/18 07:25 Dose: 3 ml Amitriptyline HCl (Elavil) 50 mg PO DAILY [facility] Last Admin: 12/21/18 09:10 Dose: 50 mg Aspirin (Ecotrin) 81 mg PO DAILY [facility] Last Admin: 12/21/18 09:10 Dose: 81 mg Digoxin (Lanoxin) 0.125 mg PO DAILY [facility] Last Admin: 12/21/18 09:07 Dose: 0.125 mg Diltiazem HCl (Cardizem Cd) 120 mg PO BID [facility] Last Admin: 12/21/18 09:11 Dose: 120 mg Famotidine (Pepcid) 20 mg PO BID [facility] Last Admin: 12/21/18 09:11 Dose: 20 mg Guaifenesin/Dextromethorphan (Robitussin Dm) 15 ml PO Q4H PRN PRN Reason: Cough Metoprolol Tartrate (Lopressor) 50 mg PO BID [facility] Last Admin: 12/21/18 09:11 Dose: 50 mg Ondansetron HCl (Zofran) 4 mg SLOW IVP Q6H PRN PRN Reason: Nausea/Vomiting Quetiapine Fumarate (Seroquel) 50 mg PO HS [facility] Last Admin: 12/20/18 20:01 Dose: 50 mg Senna/Docusate Sodium (Senokot S) 2 tab PO BID PRN PRN Reason: Constipation Sodium Chloride (Flush - Normal Saline) 10 ml IVF Q12HR [facility] Last Admin: 12/21/18 09:11 Dose: 10 ml Sodium Chloride (Flush - Normal Saline) 10 ml IVF PRN PRN PRN Reason: Saline Flush Thyroid ([place] Thyroid) 120 mg PO DAILY [facility] Last Admin: 12/21/18 09:09 Dose: 120 mg
--- NOTE | 2018-12-21 21:22 | PRG ---
DATE OF SERVICE: 12/21/2018 SUBJECTIVE: Danna Powers has no complaints. Her biopsies back. She has adenocarcinoma. Two nieces were in the room and said that the family decided they would not treat her, but they wanted to see oncologist to discuss options. I haveconsulted Oncology. She has had no clinical condition. She is stable for discharge tonight. OBJECTIVE: VITAL SIGNS: She is afebrile. Vital signs are stable. LUNGS: Unchanged. HEART: Unchanged. ABDOMEN: Unchanged. GENERAL: Still mildly confused, but confabulates to cover her confusion. She will need full-time care at home or wherever she goes. Oncology has been consulted. We will sign off. Job ID: [id number] MTDD
--- NOTE | 2018-12-21 23:41 | CON ---
DATE OF CONSULTATION: REASON FOR CONSULT: Lung cancer. HISTORY OF PRESENT ILLNESS: Ms. Powers is a 78-year-old female who earlier this month was found a right upper lobe mass on chest x-ray and CT. She had an appointment with Dr. Lazaro. Prior to the appointment, she began to have confusion, so was brought to this emergency room for evaluation. On arrival, she was noted in atrial fibrillation with rapid ventricular response. She was given Cardizem and converted to a sinus rhythm. She had a noncontrast brain CT, which showed atrophy, but no metastatic lesions. The patient's CT chest scan on December 06 showed a large upper lobe mass that envelopes the pulmonary artery. She has a moderate pleural effusion. The patient does have a remote history of smoking. Dr. Lazaro performed bronchoscopy, washings were negative. She then underwent a CT-guided biopsy. Pathology returned adenocarcinoma. Throughout this hospital stay, the patient has had confusion with dementia like symptoms. She denies any pain or shortness of breath at this time. PAST MEDICAL HISTORY: 1. Hypothyroidism. 2. Arthritis. 3. Depression. PAST SURGICAL HISTORY: 1. Hysterectomy. 2. Thyroid surgery. ALLERGIES: NO KNOWN DRUG ALLERGIES. HOME MEDICATIONS: 1. Amitriptyline 50 mg daily. 2. Fiorinal p.r.n. 3. Diazepam 5 mg p.r.n. 4. Quetiapine fumarate daily. 5. [place] Thyroid daily. FAMILY HISTORY: No known history of lung cancer. SOCIAL HISTORY: She is . She lives alone in [place], [place]. Remote history of smoking for approximately 20 years. No alcohol or illicit drug use. REVIEW OF SYSTEMS: 10-point review of systems is negative except for noted in HPI. PHYSICAL EXAMINATION: VITAL SIGNS: Temperature is 98.0, pulse is 83, respiratory rate 16, BP is 103/ 65. She is 97% on 2 L. GENERAL: Frail female, in no acute distress. HEENT: Normocephalic, atraumatic. Pupils equal and reactive to light. NECK: Supple. CARDIOVASCULAR: Regular rate and rhythm. LUNGS: Diminished in the right upper lobe. ABDOMEN: Soft, nontender. Bowel sounds are positive. EXTREMITIES: No clubbing, cyanosis, or edema. SKIN: No rash. HEMATOLOGICAL: No petechiae or purpura. NEUROLOGICAL: Nonfocal. PSYCHIATRIC: Patient is alert and oriented, but appears to have some short-term memory loss. PERTINENT LABS AND X-RAYS: Last CBC shows a WBC of 4.1, hemoglobin 12.2, hematocrit 37.9, platelet count 166,000, 50% neutrophils, 34% lymphocytes. Sodium was 139, potassium 3.8, chloride 105, CO2 is 23, BUN is 5, and creatinine 0.64. RADIOLOGY: Per HPI. ASSESSMENT: 1. Right upper lobe adenocarcinoma. 2. Pleural effusion. 3. New onset atrial fibrillation. 4. Acute confusion, dementia versus metastatic disease. DISCUSSION: Patient needs an MRI of the brain. Cytogenetics have been sent on the biopsy tissue. Further treatment recommendations would be based on those results. However, I believe she would tolerate chemotherapy poorly. They are leaning towards comfort care. The patient is unable to return home to live by herself. Her son lives in [place]. She will likely go to rehab. If MRI is negative, we will set up an appointment in the office in the outpatient setting to discuss treatment options, possibly including immunotherapy which is well tolerated. Thank you for the consult. Job ID: [id number] NICK
[2018-12-22] MEDS: Aspirin 81 mg Enteric Coated Tablet PO SCH (10:26)
[2018-12-22] MEDS: Famotidine 20 MG TAB PO SCH ×2 (10:27→21:00)
[2018-12-22] MEDS: Amitriptyline HCl 25 MG TAB PO SCH (10:27)
[2018-12-22] MEDS: Digoxin 0.125 MG TAB PO SCH (10:27)
[2018-12-22] MEDS: Thyroid 60 MG TAB PO SCH (10:27)
[2018-12-22] MEDS: Metoprolol Tartrate 50 MG TAB PO SCH ×3 (10:33→21:01)
--- NOTE | 2018-12-22 11:03 | MRI ---
MRI BRAIN WITH AND WITHOUT CONTRAST: HISTORY: A 78-year-old female with right upper lobe lung cancer who presents with altered mental status: conf usion, rule out brain metastasis. TECHNIQUE: Multiple sequences obtained in axial, sagittal, and coronal planes; pre and post IV injection of gado linium-based contrast agent: 10 mL of MultiHance. FINDINGS: The ventricles are normal in size and configuration. There is no restricted diffusion, abnormal intr aaxial enhancement, mass, midline shift or any other mass effect, recent intraaxial hemorrhage, or ex traaxial fluid collection. There are a few scattered small T2-hyperintensities in the cerebral white matter consistent with mild chronic ischemic white matter changes due to mild microvascular atheroscl erosis. There is diffuse age-appropriate brain parenchymal volume loss. There is no evidence of int racranial metastatic disease. IMPRESSION: 1. Mild chronic ischemic white matter changes and involutional changes, typical for the patient's age . 2. Otherwise negative. No evidence of brain metastasis. jnR POS: JASPAL
--- NOTE | 2018-12-22 14:07 | CT ---
CT ABDOMEN WITH CONTRAST CT PELVIS WITH CONTRAST: DATE: 12/22/2018 TIME: 1:09 p.m. HISTORY: A 78-year-old female for restaging of [id number] lung cancer (right upper lobe lung cancer). COMPARISON: 01/31/2014 TECHNIQUE: IV injection of iodinated contrast media: Isovue-370 90 mL. Oral contrast media: Readi-Cat. FINDINGS: There is a new moderate to large right pleural effusion. No left-sided pleural effusion. Small, scl erotic, osseous lesion in the right side of the L2 vertebral body, just deep and abutting the right l ateral cortex, currently measures 0.8 x 0.8 x 0.7 cm. It was previously 0.6 x 0.5 x 0.4 cm. It has spiculated margins. Because of the very slow interval growth, this is favored to be a bone island ra ther than a bone metastasis. There is an old compression fracture with depression of the superior endplate of L1 and mild bony ret ropulsion (which qualifies this as a burst fracture) which was not present on 01/31/2014. The uterus is absent. The bladder is mildly distended and has thin, normal rock. Its base is cauda lly positioned. No ascites or pneumoperitoneum. No colonic diverticulitis identified. No small bow el dilation. Normal liver with no evidence of metastasis. Atherosclerotic calcification without ane urysm of the abdominal aorta. Normal bilateral kidneys. No evidence of adrenal metastasis. No sign ificant change in the 2.5 x 2 x 3.5 cm cyst in the right adrenal location, either arising from right renal cortical surface or right adrenal gland. No intraabdominal or intrapelvic lymphadenopathy. IMPRESSION: 1. a small osteoblastic lesion in the right side of the L2 vertebral body, probably a bone island. 2. Old burst fracture of L1, which occurred some time after the previous CT of 01/31/2014. 3. Otherwise no convincing evidence of intraabdominal or intrapelvic metastatic disease. 4. Pelvic relaxation secondary to status post hysterectomy. 5. New moderate to large right pleural effusion. KONSTANTIN Sow POS: TPC
[2018-12-22] MEDS: Senokot S 8.6-50 MG TAB PO PRN (14:44)
--- NOTE | 2018-12-22 16:08 | PDOC.PN ---
- Subjective Encounter Start Date: 12/22/18 Encounter Start Time: 16:10 Pt seen for followup re: lung cancer. Reports SOBOE. - Objective Resuscitation Status - Order Detail: 12/11/18 18:34 Resuscitation Status Routine Resuscitation Status: FULL: Full Resuscitation Discussed with: POA: nallely KLEIN Reviewed: Yes Vital Signs & Weight: Vital Signs (12 hours) Temp Pulse Resp BP BP Pulse Ox 12/22/18 11:54 61 16 95 12/22/18 10:33 79 106/64 12/22/18 10:27 79 12/22/18 10:05 106/64 95 12/22/18 07:25 97.9 F 79 16 115/68 95 12/22/18 07:14 79 16 95 12/22/18 04:40 75 20 107/58 L 96 Weight Weight 110 lb 8 oz I&O: 12/21/18 12/22/18 12/23/18 06:59 06:59 06:59 Intake Total 305 1300 Output Total 0 Balance 305 1300 Result Diagrams: 12/12/18 04:48 12/13/18 09:09 Additional Labs: Labs reviewed by me Phys Exam - Physical Examination Constitutional: NAD HEENT: moist MMs Neck: supple Decreased air entry lenore Cardiovascular: RRR Gastrointestinal: soft Neurological: moves all 4 limbs Psychiatric: normal affect Dx/Plan (1) Lung cancer Code(s): C34.90 - MALIGNANT NEOPLASM OF UNSP PART OF UNSP BRONCHUS OR LUNG Status: Acute Comment: lung adenoCA. Plan is for treatment as outpatient. Will request pulmonology reeval re; pleural effusion (2) Afib Code(s): I48.91 - UNSPECIFIED ATRIAL FIBRILLATION Status: Acute Qualifiers: Atrial fibrillation type: paroxysmal Qualified Code(s): I48.0 - Paroxysmal atrial fibrillation Comment: pt is in NSR now (3) HTN (hypertension) Code(s): I10 - ESSENTIAL (PRIMARY) HYPERTENSION Status: Chronic Qualifiers: Hypertension type: essential hypertension Qualified Code(s): I10 - Essential (primary) hypertension Comment: controlled (4) Hypothyroidism Code(s): E03.9 - HYPOTHYROIDISM, UNSPECIFIED Status: Chronic Qualifiers: Hypothyroidism type: acquired Qualified Code(s): E03.9 - Hypothyroidism, unspecified Comment: on thyroid replacement therapy (5) Delirium Code(s): R41.0 - DISORIENTATION, UNSPECIFIED Status: Resolved - Plan * . Review of Systems - Review of Systems Respiratory: SOB with Excertion. negative: Cough, Shortness of Breath, Pleuritic Pain, Wheezing Cardiovascular: negative: chest pain, palpitations, orthopnea, paroxysmal nocturnal dyspnea, edema, light headedness - Medications/Allergies Allergies/Adverse Reactions: Allergies Allergy/AdvReac Type Severity Reaction Status Date / Time No Known Drug Allergies Allergy Verified 12/11/18 20:18 Medications: Current Medications Acetaminophen (Tylenol) 650 mg PO Q4H PRN PRN Reason: Headache/Fever or Pain Last Admin: 12/18/18 20:32 Dose: 650 mg Albuterol/Ipratropium (Duoneb) 3 ml NEB [id number] [facility] Last Admin: 12/22/18 11:54 Dose: 3 ml Amitriptyline HCl (Elavil) 50 mg PO DAILY [facility] Last Admin: 12/22/18 10:27 Dose: 50 mg Aspirin (Ecotrin) 81 mg PO DAILY [facility] Last Admin: 12/22/18 10:26 Dose: 81 mg Digoxin (Lanoxin) 0.125 mg PO DAILY [facility] Last Admin: 12/22/18 10:27 Dose: 0.125 mg Diltiazem HCl (Cardizem Cd) 120 mg PO BID [facility] Last Admin: 12/22/18 10:33 Dose: Not Given Famotidine (Pepcid) 20 mg PO BID [facility] Last Admin: 12/22/18 10:27 Dose: 20 mg Guaifenesin/Dextromethorphan (Robitussin Dm) 15 ml PO Q4H PRN PRN Reason: Cough Metoprolol Tartrate (Lopressor) 50 mg PO BID [facility] Last Admin: 12/22/18 12:56 Dose: 50 mg Ondansetron HCl (Zofran) 4 mg SLOW IVP Q6H PRN PRN Reason: Nausea/Vomiting Quetiapine Fumarate (Seroquel) 50 mg PO HS [facility] Last Admin: 12/21/18 20:19 Dose: 50 mg Senna/Docusate Sodium (Senokot S) 2 tab PO BID PRN PRN Reason: Constipation Last Admin: 12/22/18 14:44 Dose: 2 tab Sodium Chloride (Flush - Normal Saline) 10 ml IVF Q12HR [facility] Last Admin: 12/22/18 10:28 Dose: 10 ml Sodium Chloride (Flush - Normal Saline) 10 ml IVF PRN PRN PRN Reason: Saline Flush Thyroid ([place] Thyroid) 120 mg PO DAILY [facility] Last Admin: 12/22/18 10:27 Dose: 120 mg
[2018-12-22] MEDS ORDERED: ISOVUE-370 76%-LOCM 1 ML ONE (16:24)
[2018-12-23] MEDS: Metoprolol Tartrate 50 MG TAB PO SCH ×2 (09:06→20:52)
[2018-12-23] MEDS: Aspirin 81 mg Enteric Coated Tablet PO SCH (09:06)
[2018-12-23] MEDS: Senokot S 8.6-50 MG TAB PO PRN (09:06)
[2018-12-23] MEDS: Famotidine 20 MG TAB PO SCH ×2 (09:06→20:52)
[2018-12-23] MEDS: Digoxin 0.125 MG TAB PO SCH (09:06)
[2018-12-23] MEDS: Thyroid 60 MG TAB PO SCH (09:06)
[2018-12-23] MEDS: Amitriptyline HCl 25 MG TAB PO SCH (09:06)
--- NOTE | 2018-12-23 10:30 | RAD ---
SINGLE VIEW OF THE CHEST: Comparison: 12-19-18 History: Pleural effusion. FINDINGS: Single view of the chest shows a normal sized cardiomediastinal silhouette. There is stable opacity i n the right apex. A small right pleural effusion is also seen. No change has occurred compared to the prior exam. No pneumothorax is present. IMPRESSION: Stable exam. POS: [facility]
[2018-12-23 13:24] VITALS: BMI 19.3
[2018-12-23] MEDS ORDERED: Bisacodyl 5 MG TAB PO PRN (14:55)
--- NOTE | 2018-12-23 14:55 | PDOC.PN ---
- Subjective Encounter Start Date: 12/23/18 Encounter Start Time: 09:40 Pt seen for followup re: lung cancer. c/o constipation. - Objective Resuscitation Status - Order Detail: 12/11/18 18:34 Resuscitation Status Routine Resuscitation Status: FULL: Full Resuscitation Discussed with: POA: nallely KLEIN Reviewed: Yes Vital Signs & Weight: Vital Signs (12 hours) Temp Pulse Resp BP BP Pulse Ox 12/23/18 12:26 77 18 94 L 12/23/18 12:09 74 16 93 L 12/23/18 09:35 94 L 12/23/18 09:07 97 116/70 12/23/18 09:06 97 12/23/18 08:00 98.0 F 97 16 116/70 94 L 12/23/18 06:18 83 16 94 L Weight Weight 112 lb 12.8 oz I&O: 12/22/18 12/23/18 12/24/18 06:59 06:59 06:59 Intake Total 1300 850 Output Total 0 Balance 1300 850 Result Diagrams: 12/12/18 04:48 12/13/18 09:09 Additional Labs: labs reviewed by me Phys Exam - Physical Examination Constitutional: NAD HEENT: moist MMs Neck: supple Respiratory: clear to auscultation bilateral Cardiovascular: RRR Gastrointestinal: soft Neurological: moves all 4 limbs Psychiatric: normal affect Dx/Plan (1) Lung cancer Code(s): C34.90 - MALIGNANT NEOPLASM OF UNSP PART OF UNSP BRONCHUS OR LUNG Status: Acute Comment: lung adenoCA. Plan is for treatment as outpatient. (2) Afib Code(s): I48.91 - UNSPECIFIED ATRIAL FIBRILLATION Status: Acute Qualifiers: Atrial fibrillation type: paroxysmal Qualified Code(s): I48.0 - Paroxysmal atrial fibrillation Comment: pt is in NSR (3) HTN (hypertension) Code(s): I10 - ESSENTIAL (PRIMARY) HYPERTENSION Status: Chronic Qualifiers: Hypertension type: essential hypertension Qualified Code(s): I10 - Essential (primary) hypertension Comment: controlled (4) Hypothyroidism Code(s): E03.9 - HYPOTHYROIDISM, UNSPECIFIED Status: Chronic Qualifiers: Hypothyroidism type: acquired Qualified Code(s): E03.9 - Hypothyroidism, unspecified Comment: continue thyroid replacement therapy (5) Delirium Code(s): R41.0 - DISORIENTATION, UNSPECIFIED Status: Resolved - Plan * . Dulcolax for constipation Review of Systems - Review of Systems Cardiovascular: negative: chest pain, palpitations, orthopnea, paroxysmal nocturnal dyspnea, edema, light headedness Gastrointestinal: Constipation. negative: Nausea, Vomiting, Abdominal Pain, Diarrhea, Melena, Hematochezia - Medications/Allergies Allergies/Adverse Reactions: Allergies Allergy/AdvReac Type Severity Reaction Status Date / Time No Known Drug Allergies Allergy Verified 12/11/18 20:18 Medications: Current Medications Acetaminophen (Tylenol) 650 mg PO Q4H PRN PRN Reason: Headache/Fever or Pain Last Admin: 12/18/18 20:32 Dose: 650 mg Albuterol/Ipratropium (Duoneb) 3 ml NEB [id number] [facility] Last Admin: 12/23/18 12:09 Dose: 3 ml Amitriptyline HCl (Elavil) 50 mg PO DAILY [facility] Last Admin: 12/23/18 09:06 Dose: 50 mg Aspirin (Ecotrin) 81 mg PO DAILY [facility] Last Admin: 12/23/18 09:06 Dose: 81 mg Bisacodyl (Dulcolax) 10 mg PO ONE [facility] Bisacodyl (Dulcolax) 10 mg PO DAILYPRN PRN PRN Reason: Constipation Digoxin (Lanoxin) 0.125 mg PO DAILY [facility] Last Admin: 12/23/18 09:06 Dose: 0.125 mg Diltiazem HCl (Cardizem Cd) 120 mg PO BID [facility] Last Admin: 12/23/18 09:07 Dose: Not Given Famotidine (Pepcid) 20 mg PO BID [facility] Last Admin: 12/23/18 09:06 Dose: 20 mg Guaifenesin/Dextromethorphan (Robitussin Dm) 15 ml PO Q4H PRN PRN Reason: Cough Metoprolol Tartrate (Lopressor) 50 mg PO BID [facility] Last Admin: 12/23/18 09:06 Dose: 50 mg Ondansetron HCl (Zofran) 4 mg SLOW IVP Q6H PRN PRN Reason: Nausea/Vomiting Quetiapine Fumarate (Seroquel) 50 mg PO HS [facility] Last Admin: 12/22/18 20:59 Dose: 50 mg Senna/Docusate Sodium (Senokot S) 2 tab PO BID PRN PRN Reason: Constipation Last Admin: 12/23/18 09:06 Dose: 2 tab Sodium Chloride (Flush - Normal Saline) 10 ml IVF Q12HR [facility] Last Admin: 12/23/18 09:07 Dose: 10 ml Sodium Chloride (Flush - Normal Saline) 10 ml IVF PRN PRN PRN Reason: Saline Flush Thyroid ([place] Thyroid) 120 mg PO DAILY [facility] Last Admin: 12/23/18 09:06 Dose: 120 mg
[2018-12-23] MEDS ORDERED: Bisacodyl 5 MG TAB PO SCH (15:00)
[2018-12-24] MEDS: Thyroid 60 MG TAB PO SCH (08:25)
[2018-12-24] MEDS: Amitriptyline HCl 25 MG TAB PO SCH (08:25)
[2018-12-24] MEDS: Digoxin 0.125 MG TAB PO SCH (08:25)
[2018-12-24] MEDS: Aspirin 81 mg Enteric Coated Tablet PO SCH (08:25)
[2018-12-24] MEDS: Famotidine 20 MG TAB PO SCH ×2 (08:26→20:18)
[2018-12-24] MEDS: Metoprolol Tartrate 50 MG TAB PO SCH ×2 (08:26→20:18)
[2018-12-24] MEDS: HYDROcodone/Acetaminophen 5/325 mg Tablet PO PRN (15:51)
--- NOTE | 2018-12-24 18:13 | PDOC.PN ---
- Subjective Encounter Start Date: 12/24/18 Encounter Start Time: 11:00 Pt seen for followup re: lung cancer. No complaints. - Objective Resuscitation Status - Order Detail: 12/11/18 18:34 Resuscitation Status Routine Resuscitation Status: FULL: Full Resuscitation Discussed with: POA: son Vital Signs & Weight: Vital Signs (12 hours) Temp Pulse Resp BP BP Pulse Ox 12/24/18 13:17 76 16 12/24/18 08:30 95 12/24/18 08:26 90 107/60 12/24/18 08:25 90 16 96 12/24/18 08:00 98.4 F 90 16 107/60 95 Weight Weight 113 lb 5.082 oz I&O: 12/23/18 12/24/18 12/25/18 06:59 06:59 06:59 Intake Total 850 920 Balance 850 920 Result Diagrams: 12/12/18 04:48 12/13/18 09:09 Phys Exam - Physical Examination Constitutional: NAD HEENT: moist MMs Neck: supple Respiratory: clear to auscultation bilateral Cardiovascular: RRR Gastrointestinal: soft Neurological: moves all 4 limbs Psychiatric: normal affect Dx/Plan (1) Lung cancer Code(s): C34.90 - MALIGNANT NEOPLASM OF UNSP PART OF UNSP BRONCHUS OR LUNG Status: Acute Comment: lung adenoCA. Mutational analysis pending. (2) Afib Code(s): I48.91 - UNSPECIFIED ATRIAL FIBRILLATION Status: Acute Qualifiers: Atrial fibrillation type: paroxysmal Qualified Code(s): I48.0 - Paroxysmal atrial fibrillation Comment: pt is in NSR (3) HTN (hypertension) Code(s): I10 - ESSENTIAL (PRIMARY) HYPERTENSION Status: Chronic Qualifiers: Hypertension type: essential hypertension Qualified Code(s): I10 - Essential (primary) hypertension Comment: stable (4) Hypothyroidism Code(s): E03.9 - HYPOTHYROIDISM, UNSPECIFIED Status: Chronic Qualifiers: Hypothyroidism type: acquired Qualified Code(s): E03.9 - Hypothyroidism, unspecified Comment: continue thyroid replacement therapy (5) Delirium Code(s): R41.0 - DISORIENTATION, UNSPECIFIED Status: Resolved - Plan * . Review of Systems - Review of Systems Cardiovascular: negative: chest pain, palpitations, orthopnea, paroxysmal nocturnal dyspnea, edema, light headedness Gastrointestinal: negative: Nausea, Vomiting, Abdominal Pain, Diarrhea, Constipation, Melena, Hematochezia - Medications/Allergies Allergies/Adverse Reactions: Allergies Allergy/AdvReac Type Severity Reaction Status Date / Time No Known Drug Allergies Allergy Verified 12/11/18 20:18 Medications: Current Medications Acetaminophen (Tylenol) 650 mg PO Q4H PRN PRN Reason: Headache/Fever or Pain Last Admin: 12/18/18 20:32 Dose: 650 mg Hydrocodone Bitart/Acetaminophen ([place] 5/325) 1 tab PO Q4H PRN PRN Reason: Pain 4-6 Last Admin: 12/24/18 15:51 Dose: 1 tab Albuterol/Ipratropium (Duoneb) 3 ml NEB [id number] [facility] Last Admin: 12/24/18 13:17 Dose: 3 ml Amitriptyline HCl (Elavil) 50 mg PO DAILY [facility] Last Admin: 12/24/18 08:25 Dose: 50 mg Aspirin (Ecotrin) 81 mg PO DAILY [facility] Last Admin: 12/24/18 08:25 Dose: 81 mg Bisacodyl (Dulcolax) 10 mg PO DAILYPRN PRN PRN Reason: Constipation Digoxin (Lanoxin) 0.125 mg PO DAILY [facility] Last Admin: 12/24/18 08:25 Dose: 0.125 mg Diltiazem HCl (Cardizem Cd) 120 mg PO BID [facility] Last Admin: 12/24/18 08:26 Dose: 120 mg Famotidine (Pepcid) 20 mg PO BID [facility] Last Admin: 12/24/18 08:26 Dose: 20 mg Guaifenesin/Dextromethorphan (Robitussin Dm) 15 ml PO Q4H PRN PRN Reason: Cough Metoprolol Tartrate (Lopressor) 50 mg PO BID [facility] Last Admin: 12/24/18 08:26 Dose: 50 mg Ondansetron HCl (Zofran) 4 mg SLOW IVP Q6H PRN PRN Reason: Nausea/Vomiting Quetiapine Fumarate (Seroquel) 50 mg PO HS [facility] Last Admin: 12/23/18 20:52 Dose: 50 mg Sodium Chloride (Flush - Normal Saline) 10 ml IVF Q12HR [facility] Last Admin: 12/24/18 08:30 Dose: 10 ml Sodium Chloride (Flush - Normal Saline) 10 ml IVF PRN PRN PRN Reason: Saline Flush Thyroid ([place] Thyroid) 120 mg PO DAILY [facility] Last Admin: 12/24/18 08:25 Dose: 120 mg
--- NOTE | 2018-12-24 19:39 | EKG ---
Test Reason : Blood Pressure : / mmHG Vent. Rate : 109 BPM Atrial Rate : 109 BPM P-R Int : 000 ms QRS Dur : 066 ms QT Int : 322 ms P-R-T Axes : 000 059 009 degrees QTc Int : 433 ms Sinus tachycardia Low voltage QRS Nonspecific T wave abnormality Abnormal ECG Confirmed by CRISTIAN PERES ([id number]), scientific editor DEEPAK FITZPATRICK ([id number]) on 12/24/2018 7:38:42 PM Referred By: Confirmed By:CRISTIAN PERES
[2018-12-25] MEDS: Thyroid 60 MG TAB PO SCH (08:05)
[2018-12-25] MEDS: Aspirin 81 mg Enteric Coated Tablet PO SCH (08:06)
[2018-12-25] MEDS: Digoxin 0.125 MG TAB PO SCH (08:06)
[2018-12-25] MEDS: Metoprolol Tartrate 50 MG TAB PO SCH ×2 (08:07→19:51)
[2018-12-25] MEDS: Amitriptyline HCl 25 MG TAB PO SCH (08:07)
[2018-12-25] MEDS: Famotidine 20 MG TAB PO SCH ×2 (08:07→19:51)
[2018-12-25] MEDS: HYDROcodone/Acetaminophen 5/325 mg Tablet PO PRN (08:15)
--- NOTE | 2018-12-25 13:12 | PDOC.PN ---
- Subjective Encounter Start Date: 12/25/18 Encounter Start Time: 10:00 Pt seen for followup re: lung cancer. Says she feels better. - Objective Resuscitation Status - Order Detail: 12/11/18 18:34 Resuscitation Status Routine Resuscitation Status: FULL: Full Resuscitation Discussed with: POA: nallely KLEIN Reviewed: Yes Vital Signs & Weight: Vital Signs (12 hours) Temp Pulse Resp Pulse Ox 12/25/18 08:06 84 12/25/18 08:00 96 12/25/18 07:55 98.3 F 84 16 96 12/25/18 07:15 68 20 96 Weight Weight 113 lb 5.082 oz I&O: 12/24/18 12/25/18 12/26/18 06:59 06:59 06:59 Intake Total 920 1050 Balance 920 1050 Result Diagrams: 12/12/18 04:48 12/13/18 09:09 Additional Labs: labs reviewed by me Dx/Plan (1) Lung cancer Code(s): C34.90 - MALIGNANT NEOPLASM OF UNSP PART OF UNSP BRONCHUS OR LUNG Status: Acute Comment: Mutational analysis pending. (2) Afib Code(s): I48.91 - UNSPECIFIED ATRIAL FIBRILLATION Status: Acute Qualifiers: Atrial fibrillation type: paroxysmal Qualified Code(s): I48.0 - Paroxysmal atrial fibrillation Comment: pt is in sinus rhythm. Start apixaban. (3) HTN (hypertension) Code(s): I10 - ESSENTIAL (PRIMARY) HYPERTENSION Status: Chronic Qualifiers: Hypertension type: essential hypertension Qualified Code(s): I10 - Essential (primary) hypertension Comment: stable (4) Hypothyroidism Code(s): E03.9 - HYPOTHYROIDISM, UNSPECIFIED Status: Chronic Qualifiers: Hypothyroidism type: acquired Qualified Code(s): E03.9 - Hypothyroidism, unspecified Comment: thyroid replacement therapy (5) Delirium Code(s): R41.0 - DISORIENTATION, UNSPECIFIED Status: Resolved - Plan * . Review of Systems - Review of Systems Respiratory: negative: Cough, Shortness of Breath, SOB with Excertion, Pleuritic Pain, Wheezing Cardiovascular: negative: chest pain, palpitations, orthopnea, paroxysmal nocturnal dyspnea, edema, light headedness - Medications/Allergies Allergies/Adverse Reactions: Allergies Allergy/AdvReac Type Severity Reaction Status Date / Time No Known Drug Allergies Allergy Verified 12/11/18 20:18 Medications: Current Medications Acetaminophen (Tylenol) 650 mg PO Q4H PRN PRN Reason: Headache/Fever or Pain Last Admin: 12/18/18 20:32 Dose: 650 mg Hydrocodone Bitart/Acetaminophen ([place] 5/325) 1 tab PO Q4H PRN PRN Reason: Pain 4-6 Last Admin: 12/25/18 08:15 Dose: 1 tab Albuterol/Ipratropium (Duoneb) 3 ml NEB [id number] [facility] Last Admin: 12/25/18 07:15 Dose: 3 ml Amitriptyline HCl (Elavil) 50 mg PO DAILY [facility] Last Admin: 12/25/18 08:07 Dose: 50 mg Aspirin (Ecotrin) 81 mg PO DAILY [facility] Last Admin: 12/25/18 08:06 Dose: 81 mg Bisacodyl (Dulcolax) 10 mg PO DAILYPRN PRN PRN Reason: Constipation Digoxin (Lanoxin) 0.125 mg PO DAILY [facility] Last Admin: 12/25/18 08:06 Dose: 0.125 mg Diltiazem HCl (Cardizem Cd) 120 mg PO BID [facility] Last Admin: 12/25/18 08:06 Dose: 120 mg Famotidine (Pepcid) 20 mg PO BID [facility] Last Admin: 12/25/18 08:07 Dose: 20 mg Guaifenesin/Dextromethorphan (Robitussin Dm) 15 ml PO Q4H PRN PRN Reason: Cough Metoprolol Tartrate (Lopressor) 50 mg PO BID [facility] Last Admin: 12/25/18 08:07 Dose: 50 mg Ondansetron HCl (Zofran) 4 mg SLOW IVP Q6H PRN PRN Reason: Nausea/Vomiting Quetiapine Fumarate (Seroquel) 50 mg PO HS [facility] Last Admin: 12/24/18 20:19 Dose: 50 mg Sodium Chloride (Flush - Normal Saline) 10 ml IVF Q12HR [facility] Last Admin: 12/25/18 08:08 Dose: 10 ml Sodium Chloride (Flush - Normal Saline) 10 ml IVF PRN PRN PRN Reason: Saline Flush Thyroid ([place] Thyroid) 120 mg PO DAILY [facility] Last Admin: 12/25/18 08:05 Dose: 120 mg
[2018-12-25] MEDS: Apixaban 5 MG TAB PO SCH (19:51)
[2018-12-25] MEDS: Acetaminophen 325 MG TAB PO PRN (19:52)
[2018-12-26 06:17] LABS: #Eosinphils 0.2 thou/uL (0.0-0.7); #Lymphocytes 1.1 thou/uL (1.20-3.40); #Monocytes 0.7 thou/uL (0.11-0.59); %Basophils 0.6 % (0.0-1.0); %Eosinophils 4.2 % (0.0-10.0); %Lymphocytes 22.3 % (21.0-51.0); %Monocytes 13.8 % (0.0-10.0); %Neutrophils 59.1 % (42.0-75.0); Hemoglobin 11.4 g/dL (12.0-16.0); Mean Corpuscular HGB CONC 32.3 g/dL (32.0-36.0); Mean Corpuscular Hemoglobin 31.1 pg (27.0-31.0); Mean Corpuscular Volume 96.4 fL (78.0-98.0); Platelet Count 140 thou/uL (130-400); RBC Distribution Width 12.1 % (11.5-14.5); Red Blood Cell (RBC) Count 3.67 mill/uL (4.20-5.40); White Blood Cell (WBC) Count 5.1 thou/uL (4.8-10.8)
[2018-12-26 06:37] LABS: Anion Gap 13 mmol/L (10-20); BUN (Urea Nitrogen) 14 mg/dL (9.8-20.1); Calc. Creatinine Clearance 55 mL/min (70-130); Calcium 9.4 mg/dL (7.8-10.44); Carbon Dioxide 29 mmol/L (23-31); Chloride 99 mmol/L (98-107); Estimated GFR-MDRD 81; Glucose 96 mg/dL (83-110); Potassium 3.7 mmol/L (3.5-5.1); Sodium 137 mmol/L (136-145)
[2018-12-26] MEDS: Apixaban 5 MG TAB PO SCH (08:58)
[2018-12-26] MEDS: Digoxin 0.125 MG TAB PO SCH (08:58)
[2018-12-26] MEDS: Aspirin 81 mg Enteric Coated Tablet PO SCH (09:00)
[2018-12-26] MEDS: Amitriptyline HCl 25 MG TAB PO SCH (09:02)
[2018-12-26] MEDS: Famotidine 20 MG TAB PO SCH (09:02)
[2018-12-26] MEDS: Metoprolol Tartrate 50 MG TAB PO SCH (09:02)
[2018-12-26] MEDS: Thyroid 60 MG TAB PO SCH (09:03)
--- NOTE | 2018-12-26 16:27 | DIS ---
DATE OF ADMISSION: 12/11/2018 DATE OF DISCHARGE: 12/26/2018 PRIMARY CARE PROVIDER: Beltran Lovelace MD. DISCHARGE DIAGNOSES: 1. Atrial fibrillation with rapid ventricular response. 2. Adenocarcinoma of the lung. CONSULTATIONS DURING THIS HOSPITALIZATION: 1. Pulmonary and Critical Care Medicine, Dr. Lazaro. 2. Cardiology, Dr. Tapia. 3. Oncology, Dr. Villafana. CONDITION OF PATIENT ON THE DAY OF DISCHARGE: Stable. I assessed Ms. Powers on the day of discharge. She denies any chest pain or shortness of breath. Vital signs are stable. S1 and S2 are heard, regular. Lungs are clear to auscultation bilaterally. DISCHARGE MEDICATIONS: 1. Amitriptyline 50 mg at bedtime. 2. Fiorinal p.r.n. 3. Diazepam p.r.n. 4. [place] Thyroid 120 mg daily. 5. Apixaban 5 mg two times a day. 6. Aspirin 81 mg daily. 7. Digoxin 0.125 mg daily. 8. Cardizem CD 120 mg two times a day. 9. Pepcid 20 mg two times a day. 10. Lopressor 50 mg two times a day. 11. Quetiapine 50 mg at bedtime. HOSPITAL COURSE: Ms. Powers is a pleasant 78-year-old lady, who was admitted to [facility] on December 11, 2018, for atrial fibrillation with rapid ventricular response and right lung mass. Please refer to Dr. Dumont 's history and physical note dated December 11, 2018, for further details. She was started on Cardizem drip. She was seen by Cardiology Service. She has been started on calcium channel sabra. She was initially not started on anticoagulation because of procedures to investigate lung mass. 2D echocardiogram done on December 15 showed left ventricular ejection fraction of 55% to 60%, and E/A flow reversal, suggestive of diastolic dysfunction. She also had mild mitral regurgitation, mild tricuspid regurgitation, and mildly elevated pulmonary artery pressure. She had CT scan of the brain on December 12, 2018, which only showed cortical atrophy. On December 14, she underwent bronchoscopy. Pathology report did not show evidence of malignancy. She went on to have a CT-guided lung biopsy on December 19, found to have adenocarcinoma. She was seen by Oncology Service. At the time of this dictation, mutational analysis is pending. Oncology Service will follow up with her on December 29 at 2:15 p.m. to discuss the results. She was advised to follow up with her primary care provider and Oncology Service. She is being discharged home with home health from [facility]. Many thanks for allowing me to participate in your patient's care. Please feel free to contact me with any questions or concerns. DISCHARGE DESTINATION: Home. Total amount of time spent coordinating this discharge, 33 minutes. Job ID: [id number] ADDENDUM ON DECEMBER 30, 2018: Patient's discharge diagnoses also include severe Protein-calorie malnutrition. MTDD
[2018-12-26 18:15] VITALS: BP 104/65; TEMP 98.1
--- NOTE | 2018-12-28 11:43 | PQF ---
ISABELA MEADEE BENJIDARIEN [id number] CLINICAL DOCUMENTATION CLARIFICATION FORM: POST DISCHARGE Date: 12/28/2018 ATTN: Dr. Looney Please exercise your independent, professional judgment in responding to the clarification form. Clinical indicators are provided on the bottom of this form for your review Please check appropriate box(s): [ X ] Protein Calorie Malnutrition: [ ] Mild [ ] Moderate [ X ] Severe [ ] Other Malnutrition (please specify) __ [ ] Underweight without malnutrition [ ] Cachexia [ ] Other diagnosis (please specify) [ ] Unable to determine In addition, please specify: Present on Admission (POA): [X ] Yes [ ] No [ ] Unable to determine CLINICAL INDICATORS - SIGNS / SYMPTOMS / LABS Malnutrition. BMI of 19.5. Two or More of the Following: (per dietary note) 18% weight loss over the past 6 months per pt report. Muscle wasting noted: temporalis, interosseous, clavicle area. Per PN 12/18 Lazaro: Significant weight loss over the last year with deconditioning. 12/13 PN Lazaro: Malnutrition. 60 pounds weight loss by her repot prior to this admission. Per PN 12/14 Sugarek: Cachexia. Per 12/18, 12/19 Cardiology PN: Cachexia. RISK FACTORS Lung cancer. Per dietary: Poor appetite Alternates between constipation and diarrhea. TREATMENT: Dietary consult: Recommend liberalize to regular diet. Recommend Ensure Enlive bid between meals. Continue up d/c. Moderate Malnutrition (in acute illness) Energy Intake: <75% of estimated energy requirement for > 7 days Weight Loss: 1-2%/1 week; 5%/ 1 month; 7.5%/3 months Other: mild body fat loss; mild muscle mass loss; mild fluid accumulation; Severe Malnutrition (in acute illness) Energy Intake: < 50% of estimated energy requirement for > 5 days Weight Loss: >1-2%/1 week; >5%/1 month; >7.5%/3 months Other: moderate body fat loss; moderate muscle mass loss; moderate- severe fluid accumulation; measurably reduced siding installer strength Moderate Malnutrition (in chronic illness) Energy Intake: <75% of estimated energy requirement for >1 month Weight Loss: 5%/1 month; 7.5%/3 months; 10%/6 months; 20%/1 year Other: mild body fat loss; mild muscle mass loss; mild fluid accumulation Severe Malnutrition (in chronic illness) Energy Intake: <75% of estimated energy requirement for >1 month Weight Loss: >5%/1 month; >7.5%/3 months; >10%/6 months; >20%/1 year Other: severe body fat loss; severe muscle mass loss; severe fluid accumulation ; measurably reduced siding installer strength (This form is maintained as a part of the permanent medical record) 2014 [employer]. All Rights Reserved Natasha [email or web address] [phone] MTDD
== END 2018-12-26 14:13 | disposition home health service (06) | DRG 264 ==
LOC: ERS 15:27 → 2NO 18:41 → T4-B 12-20 18:59
PROVIDERS: ADMIT Internal Medicine; ATTEND Internal Medicine
PROC: 0BBC8ZX Excision of Right Upper Lung Lobe, Via Natural or Artificial Opening Endoscopic, Diagnostic (ICD-10-PCS; principal; 2018-12-14)
PROC: 0BD48ZX Extraction of Right Upper Lobe Bronchus, Via Natural or Artificial Opening Endoscopic, Diagnostic (ICD-10-PCS; 2018-12-14)
PROC: 0BBC3ZX Excision of Right Upper Lung Lobe, Percutaneous Approach, Diagnostic (ICD-10-PCS; 2018-12-19)
DX: I48.0 Paroxysmal atrial fibrillation (principal); E43 Unspecified severe protein-calorie malnutrition; C34.11 Malignant neoplasm of upper lobe, right bronchus or lung; Z68.1 Body mass index [BMI] 19.9 or less, adult; J90 Pleural effusion, not elsewhere classified; J98.11 Atelectasis; F03.90 Unspecified dementia, unspecified severity, without behavioral disturbance, psychotic disturbance, mood disturbance, and anxiety; E03.9 Hypothyroidism, unspecified; M19.90 Unspecified osteoarthritis, unspecified site; F32.9 Major depressive disorder, single episode, unspecified; R41.0 Disorientation, unspecified; Z87.891 Personal history of nicotine dependence; Z79.899 Other long term (current) drug therapy
CPT/HCPCS: 32405; 36415; 70450; 70553; 71045; 74177; 77012; 80048; 80053; 81003; 81210; 81235; 82550; 82553; 84484; 85025; 85610; 85730; 87040; 87070; 87086; 87102; 87116; 87149; 87205; 87206; 88104; 88112; 88305; 88333; 88341; 88342; 88360; 88377; 93005; 93306; 94640; 94760; 96365; 96366; J1160; J1650; J2001; J2405; J2704; J3010; J7050; J7620; Q9966; S0028

== ENCOUNTER 2019-01-06 07:31 | Outpatient (CLI) | payer MEDICARE ==
--- NOTE | 2019-01-06 11:48 | PET ---
PET SCAN WITH CT ATTENUATION CORRECTION: HISTORY: Recent diagnosis of lung cancer. Patient has undergone no chemotherapy or radiation therapy treatment . TECHNIQUE: PET scanning with CT attenuation correction is performed from the base of the brain to the proximal t highs following the intravenous administration of 10.5 mCi F18-FDG. FINDINGS: HEAD/NECK: No abnormal FDG localization. CHEST: On the CT used for attenuation correction, there is a loculated component of fluid in the right lung apex. Additional layering pleural fluid is noted in the right hemithorax. There is dense consolidatio n of the right upper lobe with narrowing of the right upper lobe bronchus. Heterogeneous FDG avidity in the right upper lobe is noted. Maximum SUV is 4.7. There is abnormal FDG in the right hilum with a maximum SUV of 3.9. There is increased FDG avidity in the subcarinal region with a maximum SUV of 2. 7. There is no abnormal FDG in the left hemithorax. ABDOMEN/PELVIS: No abnormal FDG localization with regards to the solid organs. There is hypoattenuation without FDG a vidity in the right adrenal gland likely representing an adenoma or possibly benign neoplasm. OSSEOUS STRUCTURES: No abnormal FDG localization. IMPRESSION: FDG avidity involving the right lung compatible with neoplasm. There is evidence of right hilar and s ubcarinal metastatic disease. POS: [facility]
== END 2019-01-06 07:32 | disposition home or self-care (01) ==
LOC: PET 07:31
PROVIDERS: ATTEND Internal Medicine Hematology & Oncology
DX: C34.90 Malignant neoplasm of unspecified part of unspecified bronchus or lung (principal); C79.31 Secondary malignant neoplasm of brain; C78.01 Secondary malignant neoplasm of right lung
CPT/HCPCS: 78815; A9552

== ENCOUNTER 2019-01-18 16:01 | Outpatient (CLI) | payer MEDICARE ==
[2019-01-18 17:44] LABS: #Basophils 0.1 thou/uL (0.0-0.2); #Eosinphils 0.1 thou/uL (0.0-0.7); #Lymphocytes 1.3 thou/uL (1.20-3.40); #Monocytes 0.6 thou/uL (0.11-0.59); #Neutrophils 5.5 thou/uL (1.40-6.50); %Basophils 0.7 % (0.0-1.0); %Eosinophils 1.2 % (0.0-10.0); %Lymphocytes 17.4 % (21.0-51.0); %Neutrophils 72.8 % (42.0-75.0); Hemoglobin 13.3 g/dL (12.0-16.0); Mean Corpuscular HGB CONC 31.9 g/dL (32.0-36.0); Mean Corpuscular Hemoglobin 29.9 pg (27.0-31.0); Mean Corpuscular Volume 93.8 fL (78.0-98.0); Mean Platelet Volume 10.3 fL (7.4-10.4); Platelet Count 179 thou/uL (130-400); RBC Distribution Width 12.8 % (11.5-14.5); Red Blood Cell (RBC) Count 4.44 mill/uL (4.20-5.40); White Blood Cell (WBC) Count 7.6 thou/uL (4.8-10.8)
--- NOTE | 2019-01-18 18:05 | RAD ---
TWO VIEWS CHEST: 01/18/19 HISTORY: Preoperative chest radiograph. PA and lateral views of the chest is obtained on 01/18/19. Comparison made to previous exam from 12/06/18. Two views chest demonstrate again complete collapse and opacification of the right upper lobe, unchan ged since the previous comparison exam. Some blunting of the right costophrenic angle remains. The left lung is well aerated. No evidence of pneumothorax seen. There is severe osteoporosis of the thoracic spine. Lower thoracic and upper lumbar compression fract ures seen. IMPRESSION: Continued complete opacification of the right upper lobe. POS: [facility]
[2019-01-18 18:08] LABS: Anion Gap 13 mmol/L (10-20); BUN (Urea Nitrogen) 8 mg/dL (9.8-20.1); Calc. Creatinine Clearance 0 mL/min (70-130); Calcium 9.9 mg/dL (7.8-10.44); Carbon Dioxide 25 mmol/L (23-31); Chloride 104 mmol/L (98-107); Estimated GFR-MDRD 84; Glucose 94 mg/dL (83-110); Potassium 4.1 mmol/L (3.5-5.1); Sodium 138 mmol/L (136-145)
--- NOTE | 2019-01-20 16:37 | EKG ---
Test Reason : Blood Pressure : / mmHG Vent. Rate : 098 BPM Atrial Rate : 098 BPM P-R Int : 146 ms QRS Dur : 070 ms QT Int : 324 ms P-R-T Axes : 071 088 061 degrees QTc Int : 413 ms Normal sinus rhythm T wave abnormality, consider anterior ischemia Abnormal ECG When compared with ECG of 11-DEC-2018 15:37, Nonspecific T wave abnormality now evident in Lateral leads Confirmed by DR. Tamiko FUENTES ([id number]) on 01/20/2019 4:37:17 PM Referred By: MATTHEW Confirmed By:DR. Tamiko FUENTES
== END 2019-01-18 16:02 | disposition home or self-care (01) ==
LOC: LABBT 16:01
PROVIDERS: ATTEND Specialist
DX: Z01.818 Encounter for other preprocedural examination (principal); C34.11 Malignant neoplasm of upper lobe, right bronchus or lung; R91.8 Other nonspecific abnormal finding of lung field
CPT/HCPCS: 71046; 80048; 85025; 93005; 93010

== ENCOUNTER 2019-01-23 07:37 | Day surgery (SDC) | payer MEDICARE ==
[2019-01-18 16:43] VITALS: BMI 19.5
[2019-01-23] MEDS ORDERED: Ketorolac Tromethamine 30 MG/ML VIAL ONE (08:30)
[2019-01-23] MEDS ORDERED: Fentanyl 100 MCG/2 ML VIAL ONE (08:42)
[2019-01-23] MEDS ORDERED: Lidocaine 1% (PF) 30 ML VIAL ONE (08:48)
[2019-01-23] MEDS ORDERED: Bupivacaine/Epinephrine 0.25% 30 ML VIAL ONE (10:17)
--- NOTE | 2019-01-23 12:12 | RAD ---
PORTABLE UPRIGHT FRONTAL CHEST RADIOGRAPH: 01/23/2019 HISTORY: Evaluate chest following Mediport placement. COMPARISON: 12/23/2018 FINDINGS: There is a CT injectable left-sided Port-A-Cath present, with the distal tip overlying the cavoatrial junction. No pneumothorax noted. The left lung appears clear. There is extensive abnormal density within the right hemithorax, which includes a perihilar mass on t he right, dense opacification of the superior aspect right hemithorax, and pleural and parenchymal op acity within the right base. Findings are better assessed on the PET CT performed on 01/06/2019. Fi ndings are consistent with the patient's history of right lung cancer. IMPRESSION: Left-sided Port-A-Cath, as above. No pneumothorax. POS: [facility]
--- NOTE | 2019-01-23 13:27 | OP ---
DATE OF PROCEDURE: 01/23/2019 PREOPERATIVE DIAGNOSIS: Right lung cancer. POSTOPERATIVE DIAGNOSIS: Right lung cancer. OPERATION PERFORMED: Placement of low-profile power compatible left subclavian MediPort. ANESTHESIA: Total intravenous anesthesia with local using 0.25% Marcaine with epinephrine. INDICATIONS: The patient is a 78-year-old very thin white female. She has recently been diagnosed with right lung cancer. MediPort placement is requested for chemotherapy administration. DESCRIPTION OF OPERATION: Informed consent was obtained. The patient was taken to the operating room where total intravenous anesthesia was obtained with the patient in supine position. Left periclavicular area was prepped with ChloraPrep and draped in sterile fashion. Local anesthetic was infiltrated and a large-gauge needle was passed under the clavicle in the subclavian vein. Guidewire was passed through the needle and fluoroscopically confirmed to enter the superior vena cava. Additional local anesthetic was infiltrated and transverse incision was created based on needle insertion site. A subcutaneous pocket was dissected inferiorly. Introducer dilator was passed over the guidewire under fluoroscopic guidance. The guidewire and dilator were removed, and the catheter was passed through the introducer. The tip of the catheter was positioned at the atriocaval junction and the catheter was trimmed to the appropriate length and secured to the locking hub of the MediPort. The port was then placed in the subcutaneous pocket where it was secured to the pectoral fascia with 2 interrupted sutures of 3-0 Prolene. The incision was then closed in layers with 3-0 and 4-0 Monocryl. Additional local anesthetic was infiltrated. The port was cannulated with a Quiñones needle and it aspirated blood freely and was flushed with heparinized saline. Dermabond was placed externally on the skin incision. There were no complications. Blood loss was negligible. The patient tolerated the procedure well and was taken to recovery room in stable condition. FINDINGS: The patient is very thin, therefore, I used a low-profile power compatible port. Unfortunately, this port was attached to a small lumen (6-German) catheter. The operation was performed uneventfully with easy cannulation of the left subclavian vein. There were no complications and no blood loss. The patient's anatomy was within normal limits and there were no problems during the procedure. Job ID: [id number]
[2019-01-23] MEDS ORDERED: PHENYLEPHRINE-NS 100 MCG/ML 10 ML SYRINGE ONE (14:16)
[2019-01-23] MEDS ORDERED: Lidocaine 1% PF 5 ML VIAL ONE (14:16)
[2019-01-23] MEDS ORDERED: PROPOFOL 200 MG/20 ML VIAL ONE (14:16)
== END 2019-01-23 11:50 | disposition home or self-care (01) ==
LOC: SDC 07:37
PROVIDERS: ATTEND Specialist
PROC: 02HV33Z Insertion of Infusion Device into Superior Vena Cava, Percutaneous Approach (ICD-10-PCS; principal; 2019-01-23)
PROC: B518ZZA Fluoroscopy of Superior Vena Cava, Guidance (ICD-10-PCS; 2019-01-23)
DX: C34.11 Malignant neoplasm of upper lobe, right bronchus or lung (principal); I10 Essential (primary) hypertension; M85.80 Other specified disorders of bone density and structure, unspecified site; F32.9 Major depressive disorder, single episode, unspecified; K21.9 Gastro-esophageal reflux disease without esophagitis; E03.9 Hypothyroidism, unspecified; G47.00 Insomnia, unspecified; Z90.89 Acquired absence of other organs; Z90.710 Acquired absence of both cervix and uterus; Z90.722 Acquired absence of ovaries, bilateral; Z90.49 Acquired absence of other specified parts of digestive tract; Z79.82 Long term (current) use of aspirin; Z79.01 Long term (current) use of anticoagulants; Z79.899 Other long term (current) drug therapy
CPT/HCPCS: 71045; C1788; J0131; J1642; J1885; J2001; J2704; J3010

== ENCOUNTER 2019-02-02 14:46 | Inpatient (IN) | payer MEDICARE ==
[2019-02-02] MEDS ORDERED: Piperacillin/Tazobactam 4.5 GM VIAL ONE (15:25)
--- NOTE | 2019-02-02 15:42 | RAD ---
FChest AP view INDICATION: Shortness of breath COMPARISON: Prior exam dated January 23, 2019 FINDINGS:Large right pleural effusion persists. There is some improved aeration of the right upper l obe; however, opacity within the right upper lobe still persists. Left lung remains clear. Heart size is normal. Left chest wall port is unchanged. No pneumothorax is demonstrated. IMPRESSION: Persistent large right pleural effusion. There has been some improved aeration involving the right upper lobe. Right upper lobe opacity likely corresponding to the patient's right upper lobe lung mass still persists. Left lung remains clear.
[2019-02-02 16:09] LABS: Hemoglobin 11.1 g/dL (12.0-16.0); Mean Corpuscular HGB CONC 32.8 g/dL (32.0-36.0); Mean Corpuscular Hemoglobin 30.7 pg (27.0-31.0); Mean Corpuscular Volume 93.5 fL (78.0-98.0); White Blood Cell (WBC) Count 2.1 thou/uL (4.8-10.8)
[2019-02-02 16:18] LABS: ALT (SGPT) 17 U/L (8-55); AST (SGOT) 20 U/L (5-34); Albumin 2.6 g/dL (3.4-4.8); Alkaline Phosphatase 64 U/L (40-150); Anion Gap 12 mmol/L (10-20); BUN (Urea Nitrogen) 16 mg/dL (9.8-20.1); Bilirubin, Total 0.3 mg/dL (0.2-1.2); Calc. Creatinine Clearance 0 mL/min (70-130); Calcium 7.8 mg/dL (7.8-10.44); Carbon Dioxide 22 mmol/L (23-31); Chloride 103 mmol/L (98-107); Estimated GFR-MDRD 79; Globulin 1.9 g/dL (2.4-3.5); Glucose 90 mg/dL (83-110); Potassium 4.2 mmol/L (3.5-5.1); Protein, Total 4.5 g/dL (6.0-8.3); Sodium 133 mmol/L (136-145)
[2019-02-02 16:20] LABS: Bilirubin Small (Negative); Blood, Urine Negative (Negative); Clarity CLOUDY (Clear); Glucose, Urine (Dipstick) Negative (Negative); Leukocyte Negative (Negative); Nitrite Negative (Negative); Protein, Urine (Dipstick) 30 mg/dL (Neg-Trace); Specific Gravity, Urine 1.028 (1.002-1.036); pH, Urine 5.5 (5.0-9.0)
[2019-02-02 16:21] LABS: Bacteria/HPF None Seen HPF (None Seen)
[2019-02-02 16:22] LABS: Pathc Cast-AUWi Flag 16.05 (0-2.49)
[2019-02-02 16:24] LABS: Hyaline Casts/LPF 7-10 HYALINE CAST LPF (0-3 Hyaline)
[2019-02-02 16:24] LABS: Mean Platelet Volume 10.3 fL (7.4-10.4); Platelet Count 62 thou/uL (130-400)
[2019-02-02 16:25] LABS: Transitional Epithelial 0-3 HPF (0-3)
[2019-02-02 16:27] LABS: Band 41 % (5-11); Dohle Bodies SLIGHT; Eosinophils 3 % (0-10); Lymphocytes 21 % (21-51); MDiff Complete? YES; Metamyelocyte 5 % (0-0); Monocytes 8 % (0-10); Myelocyte 1 % (0-0); Neutrophil 20 % (42-75); Platelet Morphology Comment Appears Decreased; Polychromasia SLIGHT = 2-3 cells (100X) (0-2/hpf); Toxic Granulation SLIGHT; Vacuoles SLIGHT
[2019-02-02] MEDS ORDERED: Vancomycin HCl 1.5 GM in Sodium Chloride 0.9% 250 ML 300 ML IVPB SCH (16:30)
[2019-02-02 19:06] LABS: Troponin I 0.011 ng/mL (< 0.028)
[2019-02-02] MEDS ORDERED: Ibuprofen 200 MG TAB PO PRN (20:27)
[2019-02-02] MEDS ORDERED: Acetaminophen 500 MG TAB PO PRN (20:27)
[2019-02-02] MEDS ORDERED: Ondansetron ODT 4 MG TAB PO PRN (20:27)
[2019-02-02] MEDS ORDERED: Diazepam 5 MG TAB PO PRN (20:27)
[2019-02-02] MEDS ORDERED: Ondansetron PF 4 MG/2 ML Vial IVP PRN (20:27)
[2019-02-02 20:55] VITALS: BMI 21.2
[2019-02-02] MEDS ORDERED: Piperacillin/Tazobactam 4.5 GM in Sodium Chloride 0.9% 100 ML IVPB SCH (21:00)
[2019-02-02] MEDS: Sodium Chloride 0.9% 1,000 ML IV SCH (21:23)
[2019-02-02] MEDS: Cefepime 2 GM in Sodium Chloride 0.9% 100 ML IVPB SCH (21:23)
[2019-02-02] MEDS: Famotidine 20 MG TAB PO SCH (21:32)
[2019-02-02] MEDS: Amitriptyline HCl 25 MG TAB PO SCH (21:32)
[2019-02-02] MEDS: Lorazepam 2 MG/ML VIAL SLOW IVP PRN (22:00)
[2019-02-02] MEDS: Piperacillin/Tazobactam 4.5 GM in Sodium Chloride 0.9% 100 ML IVPB SCH (22:09)
[2019-02-02 22:12] LABS: Troponin I 0.017 ng/mL (< 0.028)
[2019-02-02] MEDS ORDERED: Sodium Chloride 0.9% 500 ML IV SCH (23:45)
--- NOTE | 2019-02-03 01:04 | HP ---
PRIMARY CARE PROVIDER: Dr. Beltran Lovelace. PRIMARY ONCOLOGIST: Dr. Franc Villafana. CHIEF COMPLAINT: Shortness of breath, fatigue, and dizziness. HISTORY OF PRESENT ILLNESS: This is a 78-year-old female, who presents to [facility] complaining of persistent shortness of breath, hypoxia, noted by her home health nurse over the last 48 hours. The patient also admits to difficulty ambulating with generalized weakness, dizziness and some nausea. The patient's history is significant for a recent diagnosis of right upper lobe lung adenocarcinoma, receiving her 1st chemotherapy approximately a week prior to this evaluation. The patient underwent MediPort placement in the left upper chest and noted increasing redness and swelling around the MediPort site. The patient denied taking her temperature at home or documenting any specific fever, however, was noted with low-grade fever of 100.5 degrees Fahrenheit in the emergency room. The patient admits to limited mobility at home using a rolling walker or short distance ambulation with increasing weakness. The patient receives assistance from her daughters and son as well as [facility]. The patient denies using any home oxygen or home nebulizer therapy. The patient denied any known sick contacts, however, was recently treated with her 1st chemotherapy and noted to be neutropenic at the time of evaluation in the emergency room. The patient was also initially noted with tachycardia and tachypnea with hypoxemia and low-grade fever meeting sepsis criteria. In the emergency room, the patient received IV vancomycin and Zosyn as well as intravenous normal saline. The patient was treated aggressively with fluid resuscitation and oxygen supplementation. PAST MEDICAL HISTORY: 1. Right upper lobe adenocarcinoma, status post chemotherapy approximately 1 week prior to this admission. 2. Hypothyroidism. 3. Osteoarthritis. 4. Depression/anxiety. 5. Atrial fibrillation with rapid ventricular response, current sinus mechanism, on Eliquis, beta sabra and calcium channel blockers. 6. Remote tobacco use, smoking approximately 20 years. PAST SURGICAL HISTORY: 1. Status post partial thyroidectomy. 2. Status post hysterectomy. 3. Status post CT-guided lung biopsy showing adenocarcinoma. 4. Status post left upper chest wall MediPort placement. CURRENT MEDICATIONS: 1. Amitriptyline 50 mg p.o. at bedtime. 2. Fiorinal 1 tablet p.o. q.4 hours p.r.n. 3. Diazepam 5 mg p.o. q.8 hours p.r.n. 4. Diltiazem CD 120 mg p.o. daily. 5. [place] Thyroid 120 mg p.o. daily. 6. Eliquis 5 mg p.o. b.i.d. 7. Enteric-coated aspirin 81 mg p.o. daily. 8. Digoxin 0.125 mg p.o. daily. 9. Pepcid 20 mg p.o. b.i.d. 10. Metoprolol tartrate 50 mg p.o. b.i.d. 11. Seroquel 50 mg p.o. at bedtime. ALLERGIES: NO KNOWN DRUG ALLERGIES. FAMILY HISTORY: No inheritable diseases per patient report. SOCIAL HISTORY: The patient resides with her family receiving assistance from her daughters and son. Remote tobacco use quitting 20 years prior to this evaluation. No alcohol or illicit drug use. Her son and daughters accompanying her in the emergency room. Currently x5 years. REVIEW OF SYSTEMS: CONSTITUTIONAL: Negative for weight loss or gain, ability to conduct usual activities. SKIN: Negative for rash, itching. EYES: Negative for double vision, pain. ENT/MOUTH: Negative for nose bleeding, neck stiffness, pain, tenderness. CARDIOVASCULAR: Negative for palpitations, dyspnea on exertion, orthopnea. RESPIRATORY: Negative for shortness of breath, wheezing, cough, hemoptysis, fever or night sweats. GASTROINTESTINAL: Negative for poor appetite, abdominal pain, heartburn, nausea, vomiting, constipation, or diarrhea. GENITOURINARY: Negative for urgency, frequency, dysuria, nocturia. MUSCULOSKELETAL: Negative for pain, swelling. NEUROLOGIC/PSYCHIATRIC: Negative for anxiety, depression. ALLERGY/IMMUNOLOGIC: Negative for skin rash, bleeding tendency. Otherwise negative except as stated per HPI. PHYSICAL EXAMINATION: VITAL SIGNS: On admission. Blood pressure 86/47, pulse 88, respiratory rate 19, temperature 100.5 degrees Fahrenheit, O2 saturation 93% on room air. GENERAL APPEARANCE: This is a 78-year-old female, ill appearing, tachypneic, responsive to questions, in moderate distress. HEENT: Pupils are equal, round, reactive to light and accommodation. Extraocular muscles are intact. No scleral icterus. No conjunctival injection. Nares are patent. OP is clear. Oral mucosa, dry appearing. NECK: Supple. No cervical adenopathy. No thyromegaly. No carotid bruits. No JVD appreciated. Cervical spine with full active and passive range of motion. No meningeal signs noted. CHEST: Diminished breath sounds bilaterally, right greater than left. Few scattered coarse right lung field sounds. CARDIOVASCULAR: S1 and S2 with tachycardia. Left upper chest wall with MediPort in place with peripheral erythema and edema noted. ABDOMEN: Protuberant, soft, nontender, and nondistended. Bowel sounds are positive in all 4 quadrants. There is no hepatosplenomegaly. No abdominal bruits. No rebound or guarding appreciated. EXTREMITIES: Warm and dry with fair turgor. No clubbing, cyanosis, or asymmetric edema appreciated. Pulses are palpable distally at the dorsalis pedis, posterior tibial, and popliteal arteries bilaterally. Capillary refill is less than 2 seconds. NEUROLOGIC: Cranial nerves 2 through 12 are grossly intact. No focal or lateralizing signs appreciated. The patient is not observed ambulatory during this exam. PERTINENT LAB AND X-RAY FINDINGS: Sodium 133, potassium 4.2, chloride 103, CO2 of 22, BUN 16, creatinine 0.72, glucose 90, lactic acid level 1.2, calcium 7.8. LFTs within normal limits. Troponin I negative x1. CBC showed a white blood cell count 2.1, hemoglobin 11, hematocrit 34, platelet count 62 with 20% neutrophils, 41% bands. Urinalysis showed positive protein with 7 to 10 wbc's per high-power field, 7-10 squamous epithelial cells. Influenza A and B antigen dated 02/02/2019, negative. Portable chest x-ray dated 02/02/2019, showed large right pleural effusion. EKG dated 02/02/2019, by my interpretation shows a sinus tachycardia with heart rates in the low 100s. Low voltage tracing. Attenuated R-waves noted in the precordial leads. Normal axis. No acute ST-T wave changes appreciated. ASSESSMENT/PLAN: 1. Sepsis secondary to suspected MediPort site infection. The patient will be admitted to the intermediate care unit. Appears sepsis with septic shock given patient's initial hypotension. We will continue IV fluid hydration per sepsis protocol. Continue IV antibiotic therapy with vancomycin 1 g IV q.12 hours with additional Zosyn 4.5 g IV q.6 hours. Blood and urine cultures pending. 2. Acute hypoxic respiratory failure. We will continue oxygen supplementation to maintain O2 saturations greater than equal to 90%. Add DuoNeb q.4 hours. Consider pulmonology consultation. May need evaluation for home oxygen. 3. Right upper lobe adenocarcinoma. We will continue supportive management as outlined previously. Consult medical oncology service for any further recommendations. The patient is status post chemotherapy x1 session. 4. Neutropenic fever. We will continue neutropenic precautions. Isolation procedures per protocol. Serial CBC. Consult medical oncology service for further recommendations. 5. Pancytopenia. Secondary to chemotherapy. See above. Repeat CBC in the a.m. 6. Prophylaxis. SCDs while in bed. Pepcid 20 mg p.o. b.i.d. Neutropenic precautions. 7. Code status is full. Surrogate medical decision maker is patient's son. CRITICAL CARE TIME: Total critical care time 45 minutes. Job ID: [id number]
[2019-02-03] MEDS: Sodium Chloride 0.9% 1,000 ML IV SCH ×2 (04:28→17:03)
[2019-02-03] MEDS: Piperacillin/Tazobactam 4.5 GM in Sodium Chloride 0.9% 100 ML IVPB SCH ×4 (04:29→21:22)
[2019-02-03] MEDS: Vancomycin HCl 500 MG in Sodium Chloride 0.9% 100 ML IVPB SCH ×2 (06:01→17:03)
[2019-02-03 06:22] LABS: Band 13 % (5-11); Eosinophils 5 % (0-10); Hemoglobin 10.2 g/dL (12.0-16.0); Lymphocytes 29 % (21-51); MDiff Complete? YES; Mean Corpuscular HGB CONC 32.3 g/dL (32.0-36.0); Mean Corpuscular Volume 92.7 fL (78.0-98.0); Mean Platelet Volume 10.3 fL (7.4-10.4); Metamyelocyte 1 % (0-0); Monocytes 22 % (0-10); Neutrophil 28 % (42-75); Platelet Count 46 thou/uL (130-400); Platelet Morphology Comment Appears Decreased; RBC Distribution Width 12.2 % (11.5-14.5); Reactive Lymphocytes 2 % (0-10)
[2019-02-03 06:28] LABS: ALT (SGPT) 12 U/L (8-55); AST (SGOT) 13 U/L (5-34); Albumin 2.2 g/dL (3.4-4.8); Alkaline Phosphatase 49 U/L (40-150); Anion Gap 10 mmol/L (10-20); BUN (Urea Nitrogen) 15 mg/dL (9.8-20.1); Bilirubin, Total 0.3 mg/dL (0.2-1.2); Calc. Creatinine Clearance 57 mL/min (70-130); Calcium 7.7 mg/dL (7.8-10.44); Carbon Dioxide 18 mmol/L (23-31); Chloride 110 mmol/L (98-107); Estimated GFR-MDRD 77; Glucose 84 mg/dL (83-110); Potassium 3.7 mmol/L (3.5-5.1); Protein, Total 4.2 g/dL (6.0-8.3); Sodium 134 mmol/L (136-145)
[2019-02-03] MEDS ORDERED: Sodium Chloride 0.9% 500 ML IV SCH (06:45)
[2019-02-03] MEDS ORDERED: Prevnar 13-Val Conj/PF 0.5 ML SYRINGE IM ONE (09:00)
[2019-02-03] MEDS: Cefepime 2 GM in Sodium Chloride 0.9% 100 ML IVPB SCH ×2 (09:26→20:43)
[2019-02-03] MEDS: Famotidine 20 MG TAB PO SCH ×2 (09:27→20:43)
[2019-02-03] MEDS: Thyroid 60 MG TAB PO SCH (09:27)
[2019-02-03] MEDS: Digoxin 0.125 MG TAB PO SCH (09:27)
[2019-02-03] MEDS: Diltiazem HCl 125 MG, Admixture Fee 1 EACH in Sodium Chloride 0.9% 100 ML IVPB SCH (11:27)
[2019-02-03] MEDS ORDERED: Digoxin 0.5 MG/2 ML AMP SLOW IVP SCH (14:00)
--- NOTE | 2019-02-03 14:02 | PDOC.PN ---
- Subjective Encounter Start Date: 02/03/19 Encounter Start Time: 13:45 Subjective: f/u for sepsis with shock in context of neutropenic fever with RUL -: adenocarcinoma s/p chemo. Nsg noted A-fib RVR and pt remains on -: O2 @ 2L/min. - Objective Resuscitation Status - Order Detail: 02/02/19 18:21 Resuscitation Status Routine Resuscitation Status: FULL: Full Resuscitation MAR Reviewed: Yes Vital Signs & Weight: Vital Signs (12 hours) Temp Pulse Resp BP Pulse Ox 02/03/19 11:09 99.4 F 02/03/19 10:59 126 H 24 H 96 02/03/19 09:27 122 H 104/56 L 02/03/19 08:00 97 02/03/19 07:23 99.4 F 02/03/19 07:03 122 H 29 H 100 02/03/19 04:00 98.2 F Weight Weight 123 lb 4.8 oz Most Recent Monitor Data Heart Rate from ECG 129 NIBP 112/56 NIBP BP-Mean 74 Respiration from ECG 30 SpO2 100 I&O: 02/02/19 02/03/19 02/04/19 06:59 06:59 06:59 Intake Total 1660 Balance 1660 Result Diagrams: 02/03/19 05:56 02/03/19 05:56 Additional Labs: Microbiology 02/02/19 14:54 Nasal swab Influenza Types A,B Direct EIA - Final 02/02/19 15:53 Urine voided Urine Culture - Preliminary Gram Negative Puneet 02/02/19 15:39 Venous blood - Right Arm Blood Culture - Preliminary Coagulase Neg Staphylococcus 02/02/19 15:39 Venous blood - Left Hand Blood Culture - Preliminary Specimen has been received and culture in progress. No Growth to date. Laboratory Tests 02/02/19 02/02/19 02/02/19 15:39 15:39 15:39 WBC 2.1 L Plt Count 62 L Band Neuts % (Manual) 41 H Sodium 133 L Lactic Acid Troponin I 0.022 02/02/19 02/02/19 02/02/19 15:53 18:19 21:38 WBC Plt Count Band Neuts % (Manual) Sodium Lactic Acid 1.2 Troponin I 0.011 0.017 02/02/19 02/03/19 21:38 05:56 WBC Plt Count Band Neuts % (Manual) 13 H Sodium Lactic Acid 1.5 Troponin I EKG Reviewed by me: Yes (Tele - A-fib RVR in 130's) Phys Exam - Physical Examination alert, responsive, tachypneic HEENT: PERRLA, sclera anicteric, oral pharynx no lesions Neck: no nodes, no JVD, supple, full ROM diminished in R field Respiratory: no wheezing tachycardic S1, S2 Cardiovascular: no significant murmur, no rub, irregular Gastrointestinal: soft, non-tender, no distention, positive bowel sounds Musculoskeletal: no edema, pulses present Neurological: normal sensation, moves all 4 limbs Psychiatric: A&O x 3 Skin: normal turgor, cap refill <2 seconds Deviation from normal: L upper chest wall with Mediport, peripheral erythema noted Dx/Plan (1) Septic shock Code(s): A41.9 - SEPSIS, UNSPECIFIED ORGANISM; R65.21 - SEVERE SEPSIS WITH SEPTIC SHOCK Status: Acute Comment: Continue IVF's, continue IV Cefepime/ Zosyn/Vancomycin pending final blood cx results, suspect due to local cellulitis near L upper chest wall Mediport (2) Acute respiratory failure with hypoxia Code(s): J96.01 - ACUTE RESPIRATORY FAILURE WITH HYPOXIA Status: Acute Comment: O2 @ 2L/min NC titrating, continue pulmonary support (3) Atrial fibrillation with RVR Code(s): I48.91 - UNSPECIFIED ATRIAL FIBRILLATION Status: Acute Comment: Start Cardizem gtt, Add Digoxin 0.25mg IV x 1 now then repeat as clinically indicated, continue Cardizem po (4) Adenocarcinoma, lung Code(s): C34.90 - MALIGNANT NEOPLASM OF UNSP PART OF UNSP BRONCHUS OR LUNG Status: Acute Qualifiers: Laterality: right Qualified Code(s): C34.91 - Malignant neoplasm of unspecified part of right bronchus or lung Comment: s/p chemo x 1, Med oncology consult (5) Neutropenic fever Code(s): D70.9 - NEUTROPENIA, UNSPECIFIED; R50.81 - FEVER PRESENTING WITH CONDITIONS CLASSIFIED ELSEWHERE Status: Acute Comment: Secondary to #1, continue neutropenic protocol, empiric IV abx (6) Pancytopenia due to chemotherapy Code(s): D61.810 - ANTINEOPLASTIC CHEMOTHERAPY INDUCED PANCYTOPENIA Status: Acute Comment: Serial CBC, Medical Oncology consult, hold chemotherapy - Plan continue antibiotics, PT/OT, social science instructor, respiratory therapy, DVT proph w/ SCDs Continue IV Cefepime/Vancomycin/Zosyn, de-escalate in next 24h -: Await final Blood cx results -: Add Digoxin 0.25mg IV x 1 now for A-fib RVR -: Continue IVF's -: Appreciate Pulmonology/Med Oncology/Gen Surgery assistance * AM lab: BMP, CBC
--- NOTE | 2019-02-03 17:30 | CON ---
DATE OF CONSULTATION: REASON FOR CONSULTATION: Lung cancer. HISTORY OF PRESENT ILLNESS: Ms. Powers is a pleasant 78-year-old female, who was recently diagnosed with stage IV right upper lobe adenocarcinoma. She received her first cycle of carboplatin, Alimta, and Keytruda on January 24. She presented to the emergency room with shortness of breath, fatigue, and dizziness. She was found to be neutropenic and had a low-grade fever of 100.5. She did have some mild erythema around her MediPort. She was having significant diarrhea and dysuria. She was admitted, started on IV fluids and antibiotics. The patient was noted to have an elevated heart rate and to be in atrial fibrillation with RVR. She was started on a Cardizem drip. She was hypoxic and which improved with oxygen per nasal cannula. The patient's white count on admission was 2.1. She had 20% neutrophils and 41% bands. Her platelets were low at 62,000. The patient states she feels "rotten." She is tachypneic and tachycardic. She has a productive cough with blood-tinged clear sputum. Chest x-ray confirmed the persistent large right pleural effusion. Her PET scan in December showed dense consolidation of the right upper lobe with narrowing of the right upper lobe bronchus. She had a heterogeneous FDG avidity in the right upper lobe with a maximum SUV of 4.7. She did have abnormal FDG in the right hilum with SUV of 3.5, increased FDG avidity in the subcarinal region with a max SUV of 2.7. This put her as stage IV disease. PAST MEDICAL HISTORY: 1. Newly diagnosed stage IV lung cancer, status post cycle 1 of chemotherapy and immunotherapy. 2. Atrial fibrillation. 3. Degenerative arthritis. 4. Osteoporosis. 5. Depression. 6. Hypothyroidism. 7. Dementia. PAST SURGICAL HISTORY: 1. Hysterectomy. 2. Thyroid surgery. 3. Colonoscopy with polypectomy. 4. Upper GI. 5. Bronchoscopy and washings. 6. CT-guided biopsy. ALLERGIES: NO KNOWN DRUG ALLERGIES. HOME MEDICATIONS: 1. Amitriptyline 50 mg daily. 2. [place] Thyroid 120 mg daily. 3. Aspirin 81 mg daily. 4. Diazepam 5 mg t.i.d. p.r.n. 5. Digoxin 125 mcg daily. 6. Diltiazem 120 mg b.i.d. 7. Eliquis 5 b.i.d. 8. Pepcid 20 b.i.d. 9. Fiorinal p.r.n. 10. Folic acid daily. 11. Metoprolol tartrate 50 mg b.i.d. 12. Zofran p.r.n. 13. Quetiapine 50 mg daily. 14. Seroquel 50 mg daily. FAMILY HISTORY: No history of cancer. SOCIAL HISTORY: , has two children, one living and one . She lives alone, she does have Home Health. Five pack-year history of smoking. No alcohol or illicit drug use. REVIEW OF SYSTEMS: Positive for fatigue, weakness, shortness of breath, cough, dysuria, diarrhea, and memory loss. PHYSICAL EXAMINATION: VITAL SIGNS: Temperature is 99.4, pulse is 135, respiratory rate 24, BP is 91/52. She is 93% on 2 L. GENERAL: This is a chronically ill-appearing female, in mild respiratory distress. HEENT: Normocephalic and atraumatic. Pupils are equal and reactive to light. NECK: Supple. CV: Irregular rate and rhythm and tachycardic. LUNGS: She has rhonchi and wheezing throughout. ABDOMEN: Soft and nontender. Bowel sounds are positive. : She has a Santos catheter in place with clear yellow urine. EXTREMITIES: No clubbing, cyanosis, or edema. SKIN: No rash. HEMATOLOGICAL: No petechiae or purpura. NEUROLOGIC: The patient has memory loss. PSYCHIATRIC: She is oriented to person only. PERTINENT LABS AND X-RAYS: Current WBCs are 2.0, hemoglobin 10.2, hematocrit 31.5, platelet count is 46,000. She has 28% neutrophils, 13% bands, 29% lymphocytes, 22% monocytes. Sodium is 134, potassium 3.7, chloride 110, CO2 is 18, BUN is 15, creatinine 0.73, lactic acid is 1.4, calcium is 7.7, total bilirubin is 0.3, AST is 13, ALT is 12, alkaline phosphatase is 49. Troponin is negative. Serum total protein is 4.2, albumin 2.2, globulin 2.0. Urine was negative for bacteria. ASSESSMENT: 1. Stage IV right upper lobe adenocarcinoma, status post first cycle of carboplatin, Alimta, and Keytruda. 2. Atrial fibrillation with RVR. 3. Mild neutropenia with fever. 4. Respiratory distress. DISCUSSION: Case was discussed with Dr. Lazaro and Dr. العلي. The patient is on a Cardizem drip for rate control. She is receiving IV fluids and antibiotics. Her cultures are currently pending. I discussed with the son the current situation. Given her respiratory distress, her tachycardia, and low blood pressure, there was concern that she may continue to decline and require ventilation at some point. Both the patient and the son agreed to DNR status. Her next treatment cycle is due on February 13. We will discuss with Dr. Villafana, whether she needs dose reduction or elimination of chemotherapy and continue immunotherapy only. The plan was to give her two cycles of treatment, restage, and potentially continue with radiation to her right upper lobe mass had it shrunk. Thank you for the consult. We will follow her hospital course closely. Job ID: [id number]
--- NOTE | 2019-02-03 17:52 | CON ---
DATE OF CONSULTATION: 02/03/2019 HISTORY OF PRESENT ILLNESS: Danna Powers is a 78-year-old female, well known to me from her last admission. We underwent a thoracentesis that did not give us a pathological diagnosis of a very large lung mass in her right upper lobe. She subsequently had a percutaneous biopsy that revealed adenocarcinoma. Family initially told me that they did want her to go through chemotherapy. Apparently, they decided that they did, Ms. Powers unfortunately has dementia. She has no memory of her last hospitalization and told me I must be the emergency room physician. She presented this admission with fatigue, reported dizziness and shortness of breath. She had a low-grade temperature in the emergency department. She was admitted and started on antibiotics. PAST MEDICAL HISTORY: Remarkable for hypothyroidism, arthritis, dementia, history of atrial fibrillation, history of anticoagulation, history of tobacco use in the past. PAST SURGICAL HISTORY: 1. Status post partial thyroidectomy. 2. Hysterectomy. 3. Status post MediPort placement. FAMILY HISTORY: Negative for lung disease in early age. SOCIAL HISTORY: History of tobacco use in the past. REVIEW OF SYSTEMS: 10 point review of systems completed, not obtainable. PHYSICAL EXAMINATION: VITAL SIGNS: She is afebrile. She is in atrial fibrillation today with heart rate in the 130s. Blood pressure 119/50, respiratory rates in the 20s. GENERAL: To my view, she looks more cachectic than she did the last time I saw her. Last admission, she had lost as I recall over 60 pounds, which she reported is the last year what her son confirmed is temporal wasting. She is pleasant as always. She is mildly distressed. HEENT: Pupils react. NECK: She has no neck rigidity or cervical lymphadenopathy. LUNGS: Remarkable for distant breath sounds on the right. Left lung is clear. HEART: Irregular rhythm, rapid rate. There is a grade 1 to 2/6 systolic murmur. ABDOMEN: Soft. EXTREMITIES: Without clubbing, cyanosis, or edema. IMPRESSION: 1. Non-small cell lung cancer, currently receiving weekly chemotherapy. 2. Rapid atrial fibrillation with history of atrial fibrillation. 3. Cachexia. PLAN: Code status clearly needs to be addressed. She is a full code at the time of my consultation. I asked the oncologist to come by and discuss this with family since they have the ongoing relationship with the son, who has been caring for her and really unfortunately think there are very few options for her for therapeutic standpoint. Rate control with her atrial fibrillation should be the priority for now. She is growing 1/2 blood cultures with coag-negative staph. I suspect this is a contaminant. She has a gram-negative julia in her urine. Her MediPort was only put in a little over a week ago, so it would be very extremely unlikely that her MediPort is infected. This is a 50 minute consult, with greater than 50% of time spent on unit coordinating care. Job ID: [id number] [facility]
--- NOTE | 2019-02-03 18:18 | CON ---
DATE OF CONSULTATION: CONSULTING PHYSICIAN: Dr. Navneet Gan. REASON FOR CONSULTATION: Concern regarding left chest MediPort infection. HISTORY OF PRESENT ILLNESS: The patient is a 78-year-old white female. I had placed a left subclavian MediPort on January 23 for treatment of her right upper lobe lung cancer. She had already begun chemotherapy for this. She apparently presented to the emergency room, where at some point, she had an elevated temperature of a little over 100. She was admitted to the [facility], where she has remained afebrile. She has been noted to be tachycardic since her admission with a heart rate over 118. At some point, it was noted that she had some mild erythema associated with her left chest port site. There was concern regarding left chest MediPort infection and I am consulted for evaluation of this. The patient was asleep when I arrived this morning. There was no family present. The patient has some baseline confusion and was not of any help in clarifying any questions or concerns. PHYSICAL EXAMINATION: CHEST: Clear to auscultation anteriorly on the left. Diminished breath sounds in the upper right. The MediPort site has an appropriate healing incision. There is no swelling or fluctuance. There is minimal/negligible tenderness to palpation. There is a Band-Aid over the port site, indicating recent utilization, this was removed. ASSESSMENT: The patient with elevated temperature upon presentation to the emergency room. She is a fairly frail 78-year-old female, who has recently begun chemotherapy for treatment of right lung cancer. There are multiple reasons why she would have weakness or lethargy. While it is possible that she has an early infection of her MediPort, I am not certain that this is the case. Cultures have apparently been obtained (although I am not certain if any cultures were obtained through the port). Antibiotics have already been initiated. I would recommend observation of the patient pending culture results. Antibiotics can certainly be continued. Port removal is possible at anytime, but then she would require placement of another port at some point if she is going to continue chemotherapy for her lung cancer. I will reexamine the patient's port and condition on Wednesday. Job ID: [id number]
[2019-02-03] MEDS: Amitriptyline HCl 25 MG TAB PO SCH (20:44)
[2019-02-03] MEDS: Vancomycin HCl 25 MG/ML Oral PO SCH (21:57)
[2019-02-03] MEDS: metroNIDAZOLE 500 MG in Premix Bag 1 BAG IVPB SCH (21:58)
[2019-02-04] MEDS: Sodium Chloride 0.9% 1,000 ML IV SCH ×2 (02:53→16:03)
[2019-02-04] MEDS: Vancomycin HCl 25 MG/ML Oral PO SCH ×4 (02:53→17:58)
[2019-02-04] MEDS: Diltiazem HCl 125 MG, Admixture Fee 1 EACH in Sodium Chloride 0.9% 100 ML IVPB SCH (02:53)
[2019-02-04] MEDS: Piperacillin/Tazobactam 4.5 GM in Sodium Chloride 0.9% 100 ML IVPB SCH ×4 (03:16→21:57)
[2019-02-04] MEDS: metroNIDAZOLE 500 MG in Premix Bag 1 BAG IVPB SCH (05:18)
[2019-02-04 05:35] LABS: Vancomycin, Trough 10.2 ug/mL
[2019-02-04 05:36] LABS: Anion Gap 9 mmol/L (10-20); BUN (Urea Nitrogen) 13 mg/dL (9.8-20.1); Calc. Creatinine Clearance 57 mL/min (70-130); Calcium 8.1 mg/dL (7.8-10.44); Carbon Dioxide 19 mmol/L (23-31); Chloride 110 mmol/L (98-107); Estimated GFR-MDRD 77; Glucose 75 mg/dL (83-110); Potassium 3.3 mmol/L (3.5-5.1); Sodium 135 mmol/L (136-145)
[2019-02-04 05:48] LABS: Band 14 % (5-11); Eosinophils 2 % (0-10); Hemoglobin 9.9 g/dL (12.0-16.0); Lymphocytes 25 % (21-51); MDiff Complete? YES; Mean Corpuscular HGB CONC 32.5 g/dL (32.0-36.0); Mean Corpuscular Hemoglobin 30.2 pg (27.0-31.0); Mean Corpuscular Volume 92.8 fL (78.0-98.0); Metamyelocyte 2 % (0-0); Monocytes 18 % (0-10); Neutrophil 36 % (42-75); Platelet Count 44 thou/uL (130-400); Platelet Morphology Comment Appears Decreased; RBC Distribution Width 12.3 % (11.5-14.5); RBC Morphology Normal; Reactive Lymphocytes 3 % (0-10); Red Blood Cell (RBC) Count 3.29 mill/uL (4.20-5.40)
[2019-02-04] MEDS: Vancomycin HCl 750 MG in Sodium Chloride 0.9% 250 ML 250 ML IVPB SCH ×2 (06:32→17:56)
[2019-02-04] MEDS: Vancomycin HCl 500 MG in Sodium Chloride 0.9% 100 ML IVPB SCH (07:28)
[2019-02-04] MEDS: Thyroid 60 MG TAB PO SCH (09:03)
[2019-02-04] MEDS: Digoxin 0.125 MG TAB PO SCH (09:04)
[2019-02-04] MEDS: Famotidine 20 MG TAB PO SCH ×2 (09:05→20:41)
[2019-02-04] MEDS: Aspirin 81 mg Enteric Coated Tablet PO SCH (09:05)
[2019-02-04] MEDS: Cefepime 2 GM in Sodium Chloride 0.9% 100 ML IVPB SCH (09:07)
[2019-02-04] MEDS: Fiorinal 325/50/40 mg Tablet PO PRN (12:23)
--- NOTE | 2019-02-04 13:10 | PDOC.PN ---
- Subjective Encounter Start Date: 02/04/19 Encounter Start Time: 13:08 Subjective: Patient with recent chemo for right lung adenocarcinoma admitted with -: worsening SOB and hypoxia as well as weakness and dizziness. -: Still SOB and in respiratory distress. - Objective Resuscitation Status - Order Detail: 02/03/19 15:25 Resuscitation Status Routine Co-Sign Provider: Resuscitation Status: DNAR: NO Resuscitation Discussed with: patient, genaro fernandez, son. Dr. Lazaro Additional comments: patient and son agree to DNR Vital Signs & Weight: Vital Signs (12 hours) Temp Pulse Resp Pulse Ox 02/04/19 11:15 106 H 24 H 93 L 02/04/19 10:30 97.2 F L 02/04/19 09:05 98 02/04/19 09:04 98 02/04/19 07:41 96 02/04/19 07:17 98 02/04/19 07:14 98 18 98 02/04/19 07:06 97.0 F L 02/04/19 04:00 99.1 F Weight Admit Weight 123 lb Weight 123 lb 4.8 oz Most Recent Monitor Data Heart Rate from ECG 113 NIBP 98/61 NIBP BP-Mean 73 Respiration from ECG 23 SpO2 97 I&O: 02/03/19 02/04/19 02/05/19 06:59 06:59 06:59 Intake Total 1660 3430 Output Total 1025 Balance 1660 2405 Result Diagrams: 02/04/19 05:12 02/04/19 05:12 Phys Exam - Physical Examination frail elderly in moderate res[iratory distress HEENT: moist MMs Neck: supple fair air entry with some transmitted sound. Respiratory distress noted Cardiovascular: irregular tachycardic Gastrointestinal: soft, non-tender, no distention, positive bowel sounds Musculoskeletal: no edema, pulses present Neurological: non-focal, moves all 4 limbs Dx/Plan (1) Acute respiratory failure with hypoxia Code(s): J96.01 - ACUTE RESPIRATORY FAILURE WITH HYPOXIA Status: Acute Comment: O2 @ 2L/min NC titrating, continue pulmonary support (2) Pleural effusion Code(s): J90 - PLEURAL EFFUSION, NOT ELSEWHERE CLASSIFIED Status: Acute (3) Severe sepsis Code(s): A41.9 - SEPSIS, UNSPECIFIED ORGANISM; R65.20 - SEVERE SEPSIS WITHOUT SEPTIC SHOCK Status: Acute (4) Pancytopenia Code(s): D61.818 - OTHER PANCYTOPENIA Status: Acute (5) Hypokalemia Code(s): E87.6 - HYPOKALEMIA Status: Acute (6) Acidosis Code(s): E87.2 - ACIDOSIS Status: Acute (7) Adenocarcinoma, lung Code(s): C34.90 - MALIGNANT NEOPLASM OF UNSP PART OF UNSP BRONCHUS OR LUNG Status: Acute Qualifiers: Laterality: right Qualified Code(s): C34.91 - Malignant neoplasm of unspecified part of right bronchus or lung Comment: s/p chemo x 1, Med oncology consult (8) Atrial fibrillation with RVR Code(s): I48.91 - UNSPECIFIED ATRIAL FIBRILLATION Status: Acute Comment: Start Cardizem gtt, Add Digoxin 0.25mg IV x 1 now then repeat as clinically indicated, continue Cardizem po (9) Hypothyroidism Code(s): E03.9 - HYPOTHYROIDISM, UNSPECIFIED Status: Chronic Qualifiers: Hypothyroidism type: acquired Qualified Code(s): E03.9 - Hypothyroidism, unspecified Comment: thyroid replacement therapy - Plan Get ABG and repeat CXR. Start BIPAP -: Add levaquin to zosyn and vanv. DC flagyl and cefepime. -: Replete serum potassium. -: Substitute NS with LR. -: Monitor CBC and electrolytes. * . Critically ill with guarded prognosis. Critical care time 38 minutes.
--- NOTE | 2019-02-04 14:09 | RAD ---
FRadiograph chest one view: 02/04/2019 1:19 PM HISTORY: 78-year-old female with dyspnea and pleural effusion COMPARISON: 02/02/2019 3:13 PM FINDINGS: There has been interval increase in volume of right hemithorax such that there is total opacification of the right hemithoracic cavity now. Left subclavian implantable vascular access port remains. Ther e is either cardiomegaly or the cardiac shadow has been shifted to the left. There is absence of gas in the right mainstem bronchus. The left mainstem bronchus appears to be dilated. Interval worsening of aeration at the left lower lung zone with mild interstitial densities. No left-sided pneumothorax. IMPRESSION: Interval increase in volume of right pleural effusion resulting in total opacification of the right h emithoracic cavity.
[2019-02-04] MEDS: Potassium Chloride 20 MEQ TAB PO SCH ×2 (15:21→16:29)
[2019-02-04] MEDS: Lactated Ringer's 1,000 ML IV SCH (15:21)
--- NOTE | 2019-02-04 20:12 | PRG ---
DATE OF SERVICE: 02/04/2019 SUBJECTIVE: Danna Powers just gets weaker every day. She talks in only two word sentences. She remains of rapid atrial fibrillation. OBJECTIVE: VITAL SIGNS: Respiratory rates in the teens, oximetry is 96 on 2 L, and blood pressure 113/69. LUNGS: Unchanged. HEART: Unchanged. ABDOMEN: Unchanged. I talked to the niece. I feel she would best be served with inpatient hospice. P.O. intake is very poor. Electrolytes and CBC remained essentially unchanged. I have put in a consult for inpatient hospice. She on chest x-ray has poor aeration of her right chest. I suspect this is all secondary to mucus plug. The dramatic changes unlikely to be related to an effusion. Again, given her weakness and her confusion, chemotherapy is very unlikely to prolong her life in my opinion. Inpatient hospice is the best option. I would not continue to do serial radiographs on her since there are no therapeutic options. She does not have a malignant effusion by my tap at the last admission. Job ID: [id number]
[2019-02-04] MEDS: Amitriptyline HCl 25 MG TAB PO SCH (20:40)
[2019-02-05] MEDS: Vancomycin HCl 25 MG/ML Oral PO SCH ×5 (00:12→23:46)
[2019-02-05] MEDS: Lactated Ringer's 1,000 ML IV SCH ×3 (00:13→22:19)
[2019-02-05] MEDS: Diltiazem HCl 125 MG, Admixture Fee 1 EACH in Sodium Chloride 0.9% 100 ML IVPB SCH (03:23)
[2019-02-05] MEDS: Piperacillin/Tazobactam 4.5 GM in Sodium Chloride 0.9% 100 ML IVPB SCH ×4 (03:58→22:00)
[2019-02-05] MEDS: Vancomycin HCl 750 MG in Sodium Chloride 0.9% 250 ML 250 ML IVPB SCH ×2 (05:17→17:25)
[2019-02-05 06:05] LABS: Anion Gap 12 mmol/L (10-20); BUN (Urea Nitrogen) 12 mg/dL (9.8-20.1); Calc. Creatinine Clearance 65 mL/min (70-130); Calcium 8.6 mg/dL (7.8-10.44); Carbon Dioxide 17 mmol/L (23-31); Chloride 109 mmol/L (98-107); Estimated GFR-MDRD 90; Glucose 91 mg/dL (83-110); Magnesium 1.4 mg/dL (1.6-2.6); Potassium 3.5 mmol/L (3.5-5.1); Sodium 134 mmol/L (136-145)
[2019-02-05 06:08] LABS: Band 20 % (5-11); Hemoglobin 10.8 g/dL (12.0-16.0); Lymphocytes 7 % (21-51); MDiff Complete? YES; Mean Corpuscular HGB CONC 33.3 g/dL (32.0-36.0); Mean Corpuscular Hemoglobin 30.8 pg (27.0-31.0); Mean Corpuscular Volume 92.3 fL (78.0-98.0); Monocytes 13 % (0-10); Neutrophil 60 % (42-75); Platelet Count 68 thou/uL (130-400); Platelet Morphology Comment Appears Decreased; RBC Distribution Width 12.5 % (11.5-14.5); RBC Morphology Normal; Red Blood Cell (RBC) Count 3.51 mill/uL (4.20-5.40); White Blood Cell (WBC) Count 6.8 thou/uL (4.8-10.8)
[2019-02-05] MEDS: Aspirin 81 mg Enteric Coated Tablet PO SCH (09:15)
[2019-02-05] MEDS: Famotidine 20 MG TAB PO SCH ×2 (09:15→20:21)
[2019-02-05] MEDS: Digoxin 0.125 MG TAB PO SCH (09:15)
[2019-02-05] MEDS: Thyroid 60 MG TAB PO SCH (09:15)
--- NOTE | 2019-02-05 12:12 | PRG ---
DATE OF SERVICE: 02/05/2019 Ms. Powers is awaiting hospice evaluation. I just met with the son and answered all of his questions. He is totally fine with her going to the inpatient hospice and feels it would be the best option. We will continue support until she qualifies for that. Job ID: [id number]
--- NOTE | 2019-02-05 14:55 | PDOC.PN ---
- Subjective Encounter Start Date: 02/05/19 Encounter Start Time: 14:52 Subjective: Still in respiratory distress. -: Patient's son is tending towards hospice. - Objective Resuscitation Status - Order Detail: 02/03/19 15:25 Resuscitation Status Routine Co-Sign Provider: Resuscitation Status: DNAR: NO Resuscitation Discussed with: patient, genaro fernandez, son. Dr. Lazaro Additional comments: patient and son agree to DNR Vital Signs & Weight: Vital Signs (12 hours) Temp Pulse Resp BP Pulse Ox 02/05/19 12:00 97.8 F 02/05/19 10:34 113 H 15 95 02/05/19 09:15 117 H 138/70 02/05/19 08:00 97.0 F L 97 02/05/19 07:27 117 H 23 H 95 02/05/19 04:00 96.4 F L Weight Admit Weight 123 lb Weight 123 lb 4.8 oz Most Recent Monitor Data Heart Rate from ECG 105 NIBP 121/82 NIBP BP-Mean 95 Respiration from ECG 22 SpO2 94 I&O: 02/04/19 02/05/19 02/06/19 06:59 06:59 06:59 Intake Total 3430 2410 Output Total 1025 1430 Balance 2405 980 Result Diagrams: 02/05/19 05:32 02/05/19 05:32 Phys Exam - Physical Examination thin elderly female in respiratory distress HEENT: moist MMs Neck: supple diminished air movement on the right hemithorax. Cardiovascular: irregular irregular rhythm and rate, tachycardic Gastrointestinal: soft Musculoskeletal: no edema Neurological: moves all 4 limbs awaake but confused Dx/Plan (1) Acute respiratory failure with hypoxia Code(s): J96.01 - ACUTE RESPIRATORY FAILURE WITH HYPOXIA Status: Acute Comment: 2/2 right mucus plug with complete white out of the right lung, and pneumonia (2) Severe sepsis Code(s): A41.9 - SEPSIS, UNSPECIFIED ORGANISM; R65.20 - SEVERE SEPSIS WITHOUT SEPTIC SHOCK Status: Acute (3) Pancytopenia Code(s): D61.818 - OTHER PANCYTOPENIA Status: Acute (4) Hypokalemia Code(s): E87.6 - HYPOKALEMIA Status: Acute (5) Acidosis Code(s): E87.2 - ACIDOSIS Status: Acute (6) Adenocarcinoma, lung Code(s): C34.90 - MALIGNANT NEOPLASM OF UNSP PART OF UNSP BRONCHUS OR LUNG Status: Acute Qualifiers: Laterality: right Qualified Code(s): C34.91 - Malignant neoplasm of unspecified part of right bronchus or lung Comment: s/p chemo x 1, Med oncology consult (7) Atrial fibrillation with RVR Code(s): I48.91 - UNSPECIFIED ATRIAL FIBRILLATION Status: Acute Comment: Start Cardizem gtt, Add Digoxin 0.25mg IV x 1 now then repeat as clinically indicated, continue Cardizem po (8) Hypothyroidism Code(s): E03.9 - HYPOTHYROIDISM, UNSPECIFIED Status: Chronic Qualifiers: Hypothyroidism type: acquired Qualified Code(s): E03.9 - Hypothyroidism, unspecified Comment: thyroid replacement therapy (9) Obstructive pneumonia Code(s): J18.9 - PNEUMONIA, UNSPECIFIED ORGANISM Status: Acute (10) Mucus plugging of bronchi Code(s): J98.09 - OTHER DISEASES OF BRONCHUS, NOT ELSEWHERE CLASSIFIED Status : Acute - Plan Continue antibiotics, bromnchodilators and steroid -: Continue cardizem infusion for afib rate control. -: Will discussed with pulmonary about the mucus plug and right lung whiteout. -: hospice care option explored. case mgt consulted in this regard. * .
[2019-02-05] MEDS ORDERED: Magnesium Sulfate 4 GM in Sodium Chloride 0.9% 250 ML 250 ML IVPB SCH (15:00)
[2019-02-05] MEDS: Fiorinal 325/50/40 mg Tablet PO PRN (16:18)
[2019-02-05] MEDS: Morphine 4 MG/ML VIAL SLOW IVP PRN ×2 (17:25→21:29)
[2019-02-05] MEDS: Amitriptyline HCl 25 MG TAB PO SCH (20:21)
[2019-02-06] MEDS: Morphine 4 MG/ML VIAL SLOW IVP PRN ×6 (00:16→14:56)
[2019-02-06] MEDS: Diltiazem HCl 125 MG, Admixture Fee 1 EACH in Sodium Chloride 0.9% 100 ML IVPB SCH (05:44)
[2019-02-06] MEDS: Lactated Ringer's 1,000 ML IV SCH (05:49)
[2019-02-06] MEDS: Vancomycin HCl 25 MG/ML Oral PO SCH (05:50)
[2019-02-06] MEDS: Digoxin 0.125 MG TAB PO SCH ×2 (08:14→08:37)
--- NOTE | 2019-02-06 10:10 | PDOC.PN ---
- Subjective Encounter Start Date: 02/06/19 Encounter Start Time: 10:07 Subjective: Now on comfort care only in line with son desire. -: Hospice consulted. - Objective Resuscitation Status - Order Detail: 02/03/19 15:25 Resuscitation Status Routine Co-Sign Provider: Resuscitation Status: DNAR: NO Resuscitation Discussed with: patient, genaro fernandez, son. Dr. Lazaro Additional comments: patient and son agree to DNR Vital Signs & Weight: Vital Signs (12 hours) Temp Pulse Resp BP BP Pulse Ox 02/06/19 08:37 90 02/06/19 08:18 100 95/51 L 02/06/19 08:00 87 L 02/06/19 07:30 92 15 121/52 L 87 L 02/06/19 07:18 90 16 88 L 02/06/19 07:08 98.2 F 02/06/19 06:00 88 16 104/57 L 87 L 02/06/19 05:00 86 101/45 L 02/06/19 04:00 98.6 F 103 H 125/38 L 02/06/19 03:00 88 18 112/50 L 89 L 02/06/19 02:00 91 20 122/59 L 91 L 02/06/19 01:00 85 15 113/31 L 91 L 02/06/19 00:00 98 22 H 113/69 93 L 02/05/19 23:44 98.0 F 02/05/19 23:00 98 22 H 98/62 92 L 02/05/19 22:15 87 15 94 L Weight Admit Weight 123 lb Weight 123 lb 4.8 oz Most Recent Monitor Data Heart Rate from ECG 104 NIBP 113/69 NIBP BP-Mean 83 Respiration from ECG 17 SpO2 90 I&O: 02/05/19 02/06/19 02/07/19 06:59 06:59 06:59 Intake Total 2410 1360 Output Total 1430 550 Balance 980 810 Result Diagrams: 02/05/19 05:32 02/05/19 05:32 Phys Exam - Physical Examination somnolent. fair air movement with transmitted sound Cardiovascular: irregular Gastrointestinal: soft, positive bowel sounds somnolent Dx/Plan (1) Acute respiratory failure with hypoxia Code(s): J96.01 - ACUTE RESPIRATORY FAILURE WITH HYPOXIA Status: Acute Comment: 2/2 right mucus plug with complete white out of the right lung, and pneumonia (2) Severe sepsis Code(s): A41.9 - SEPSIS, UNSPECIFIED ORGANISM; R65.20 - SEVERE SEPSIS WITHOUT SEPTIC SHOCK Status: Acute (3) Pancytopenia Code(s): D61.818 - OTHER PANCYTOPENIA Status: Acute (4) Hypokalemia Code(s): E87.6 - HYPOKALEMIA Status: Acute (5) Acidosis Code(s): E87.2 - ACIDOSIS Status: Acute (6) Adenocarcinoma, lung Code(s): C34.90 - MALIGNANT NEOPLASM OF UNSP PART OF UNSP BRONCHUS OR LUNG Status: Acute Qualifiers: Laterality: right Qualified Code(s): C34.91 - Malignant neoplasm of unspecified part of right bronchus or lung Comment: s/p chemo x 1, Med oncology consult (7) Atrial fibrillation with RVR Code(s): I48.91 - UNSPECIFIED ATRIAL FIBRILLATION Status: Acute Comment: Start Cardizem gtt, Add Digoxin 0.25mg IV x 1 now then repeat as clinically indicated, continue Cardizem po (8) Hypothyroidism Code(s): E03.9 - HYPOTHYROIDISM, UNSPECIFIED Status: Chronic Qualifiers: Hypothyroidism type: acquired Qualified Code(s): E03.9 - Hypothyroidism, unspecified Comment: thyroid replacement therapy (9) Obstructive pneumonia Code(s): J18.9 - PNEUMONIA, UNSPECIFIED ORGANISM Status: Acute (10) Mucus plugging of bronchi Code(s): J98.09 - OTHER DISEASES OF BRONCHUS, NOT ELSEWHERE CLASSIFIED Status : Acute - Plan Now on comfort care only. -: DC cardizem infusiobn and antibiotics. -: continue only morphine and ativan prn -: NPO. -: Oxygen at 2lpm. Awaiting [facility] hospice evaluation * .
[2019-02-06 10:13] VITALS: BP 116/49
--- NOTE | 2019-02-06 11:41 | PRG ---
DATE OF SERVICE: 02/06/2019 SUBJECTIVE: Ms. Powers is clinically unchanged. She is sadly confused and tachypneic and will be the rest of her life. Trying to give her morphine intermittently for air hunger. OBJECTIVE: VITAL SIGNS: She is afebrile. Heart rate is 102, respiratory rate is 14, oximetry is 89 on 4 L, and blood pressure 116/49. LUNGS: Remarkable for decreased breath sounds on the right. HEART: Regular rhythm. ABDOMEN: Soft. IMPRESSION: 1. Very large non-small cell lung cancer involving the right upper lobe. 2. Neutropenia, resolving. 3. Cachexia, leading to extreme muscle weakness leading to inability to clear secretions. Hospice is the best option. Son agreed to this, but there has been no evaluation for inpatient hospice. She would best be served in my opinion at the inpatient hospice hospital and is supposed to be in a floor bed in this hospital. The staffing ratios with a full hospital right now are not conducive to her getting the attention she may require from a comfort standpoint. I have written transfer orders to move her out of the intermediate care unit. There is no indication for her to stay here. I will sign off. Job ID: [id number]
[2019-02-06] MEDS: Lorazepam 2 MG/ML VIAL SLOW IVP PRN (16:15)
--- NOTE | 2019-02-06 18:07 | DIS ---
DATE OF ADMISSION: 02/02/2019 DATE OF DISCHARGE: 02/06/2019 DISCHARGE DIAGNOSES: 1. Acute respiratory failure with hypoxia. 2. Obstructive pneumonia. 3. Right main bronchus obstruction. 4. Right lung adenocarcinoma. 5. Stage IV lung cancer. 6. Chronic atrial fibrillation. 7. Hypothyroidism. 8. Severe sepsis. 9. Pancytopenia. 10. Hypokalemia. 11. Atrial fibrillation with rapid ventricular response. CONSULTS: 1. Pulmonary and Critical Care. 2. Hematology and Oncology. 3. Cardiothoracic Surgery. HOSPITAL COURSE: A 78-year-old lady with recent diagnosis of stage IV lung cancer, status post 1 cycle of chemotherapy, who was admitted with worsening generalized weakness, dizziness, nausea, and generalized ill feeling. The patient also was found to be febrile on presentation. Further evaluation showed tachycardia, tachypnea with hypoxemia consistent with severe sepsis. The patient also was noted to have pancytopenia with neutrophil less than 1000, hence impression of neutropenic fever, pneumonia, and hypertension were made. There was some concern about infection of the recently placed Port-A-Cath, hence Cardiothoracic Surgery was consulted, but this was not felt to be the cause of the patient's infection. Chest x-ray showed whiteout of the right lung initially suggestive of pleural effusion, but further evaluation showed worsening, hence impression of obstruction of right main bronchus by mucus with or without cancer was made. The patient was started on broad-spectrum antibiotic therapy, oxygen, bronchodilators and steroids with no significant improvement. Further discussion with family and the patient about prognosis was undertaken and son decided to make the patient comfort measures only. Hospice consult was obtained and the patient was felt to be adequate for inpatient hospice. Hence, was discharged to inpatient hospice for further care. Of note, the patient had atrial fibrillation with rapid ventricular response and was initially treated with Cardizem infusion. Hospital course also was associated with development of acute confusion, which was felt to be related to acute illness and hypoxia. DISCHARGE MEDICATIONS: 1. Morphine p.r.n. 2. Ativan IV p.r.n. 3. Zosyn p.r.n. TIME SPENT: This discharge took more than 35 minutes. Job ID: [id number]
[2019-02-06 19:29] VITALS: TEMP 98.1
== END 2019-02-06 21:30 | disposition hospice, inpatient (51) | DRG 871 ==
LOC: ERS 14:46 → IMCU/EMU 20:25
PROVIDERS: ADMIT Internal Medicine; ATTEND Internal Medicine
DX: A41.9 Sepsis, unspecified organism (principal); J96.01 Acute respiratory failure with hypoxia; D61.810 Antineoplastic chemotherapy induced pancytopenia; R65.21 Severe sepsis with septic shock; J18.9 Pneumonia, unspecified organism; C34.11 Malignant neoplasm of upper lobe, right bronchus or lung; R64 Cachexia; Z66 Do not resuscitate; E03.9 Hypothyroidism, unspecified; M19.90 Unspecified osteoarthritis, unspecified site; I48.2 Chronic atrial fibrillation; R50.81 Fever presenting with conditions classified elsewhere; F03.90 Unspecified dementia, unspecified severity, without behavioral disturbance, psychotic disturbance, mood disturbance, and anxiety; F41.9 Anxiety disorder, unspecified; T45.1X5A Adverse effect of antineoplastic and immunosuppressive drugs, initial encounter; E87.6 Hypokalemia; J98.09 Other diseases of bronchus, not elsewhere classified; F32.9 Major depressive disorder, single episode, unspecified; Z79.01 Long term (current) use of anticoagulants; Z79.899 Other long term (current) drug therapy; Z87.891 Personal history of nicotine dependence; Z90.710 Acquired absence of both cervix and uterus; Z79.82 Long term (current) use of aspirin; Z68.21 Body mass index [BMI] 21.0-21.9, adult
CPT/HCPCS: 36415; 71045; 80048; 80053; 80202; 81003; 81015; 83605; 83735; 84484; 85007; 85025; 85027; 87040; 87086; 87149; 87324; 87449; 87804; 93005; 94760; 96361; 96365; 96366; J0692; J1160; J1956; J2060; J2270; J2543; J3370; J3475; J7050; J7620